=== PATIENT | male | born 1950 | race Caucasian/White ===

== ENCOUNTER 2020-08-15 06:51 | Outpatient (CLI) | payer MEDICARE, SELFPAY ==
--- NOTE | 2020-08-15 07:01 | MR_ITS ---
WS: [id number] MRI LUMBAR SPINE NONCONTRAST HISTORY: CHRONIC RIGHT-SIDED LOW BACK PAIN COMPARISON: None available. TECHNIQUE: Sagittal and axial multisequence imaging is submitted. Study of the lumbar spine is incomplete. Patient was unable to complete the examination due to pain. Straightening of the normal cervical lordosis. Disc osteophyte contact and central stenosis is at ok st moderate at C3-4 and C5-6. Mild RIGHT convex curvature thoracic spine. Focal LEFT convex curvature lumbar spine centered at L3. Moderate disc space narrowing and desiccatio n throughout the lumbar spine. No evidence for an acute fracture on this limited evaluation. Conus terminates normally at L1-2 disc level. L1-L2: Mild annular disc bulging with moderate ligamentum flavum hypertrophy. Mild bilateral foramina l stenosis. L2-L3: Asymmetric disc bulging to the RIGHT. RIGHT foraminal moderate-sized disc protrusion. Disc pro trusion extends into the RIGHT inferior lateral recess. There is at least moderate RIGHT foraminal an d RIGHT subarticular and inferolateral recess stenosis. Mild stenosis on the LEFT. L3-L4: Mild annular disc bulging. Moderate to severe bilateral facet arthritis. Moderate to severe bi lateral subarticular recess and foraminal stenosis. No central stenosis. L4-L5: Mild annular disc bulging and osteophytic ridging. Disc and osteophyte resulting in mild to mo derate bilateral foraminal stenosis. L5-S1: Small disc no significant stenosis. MR/MR lumbar spine wo con* [id number] IMPRESSION: 1. Limited evaluation of the lumbar spine. Significant motion artifact. Patien t was unable to complete the entire examination due to pain. 2. 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 3. There is at least mild to moderate bilateral foraminal stenosis at L4-5 due to disc osteophyte disease. 4. Moderate-sized RIGHT foraminal and inferior lateral recess disc protrusion at L2-3 encroaching into the foramen, inferior lateral recess and subarticular recess.
== END 2020-08-15 06:52 | disposition home or self-care (01) ==
LOC: RADSHAW 06:55
PROVIDERS: PCP Family Medicine; Visit Provider Physician Assistant
DX: M54.5 Low back pain (principal); G89.29 Other chronic pain
CPT/HCPCS: 72148

== ENCOUNTER → 2020-09-06 09:39 | Outpatient (BNVA) | payer MEDICARE, SELFPAY | PROVIDERS: PCP Family Medicine; Referring Provider Physician Assistant; Visit Provider Anesthesiology Pain Medicine | DX: M51.16 Intervertebral disc disorders with radiculopathy, lumbar region (principal); M47.816 Spondylosis without myelopathy or radiculopathy, lumbar region; M48.061 Spinal stenosis, lumbar region without neurogenic claudication; M54.9 Dorsalgia, unspecified; F17.210 Nicotine dependence, cigarettes, uncomplicated; Z79.899 Other long term (current) drug therapy | CPT/HCPCS: 99205 ==

== ENCOUNTER → 2020-11-01 10:13 | Outpatient (BNVA) | payer MEDICARE, SELFPAY | PROVIDERS: PCP Family Medicine; Visit Provider Anesthesiology Pain Medicine | DX: M51.16 Intervertebral disc disorders with radiculopathy, lumbar region (principal); M47.816 Spondylosis without myelopathy or radiculopathy, lumbar region; M48.061 Spinal stenosis, lumbar region without neurogenic claudication; M79.651 Pain in right thigh; M54.9 Dorsalgia, unspecified; F17.210 Nicotine dependence, cigarettes, uncomplicated | CPT/HCPCS: 99213 ==

== ENCOUNTER 2022-02-02 00:55 | Observation (INO) | payer MEDICARE, SELFPAY ==
[2022-02-02] VITALS (8 sets, daily range): BP systolic 119–176; BP diastolic 63–78; PULSE 70–86; RESP 18–20; TEMP 36.6–37.5; O2SAT 89–98; BMI 33.0; BMI 32.9
--- NOTE | 2022-02-02 01:56 | ED_ITS ---
Documented by User: [email or web address] Macedo 02/02/22 03:10 HPI - Abdominal Pain General: Chief Complaint: Abdominal Pain Stated Complaint: ABD pain Time Seen by Provider: 02/02/22 01:41 History of Present Illness: Patient is a 71-year-old male comes to the ED with abdominal pain. Symptoms started couple hours prior to arrival. Abdominal pain is located in the epigastric region. Patient says he ate some steak earlier tonight and a couple hours later is when he started feeling the symptoms. Epigastric pain gets worse if he lays flat. Months of sharp pain that he rates a 7 out of 10. He endorses having some nausea and had an episode of emesis tonight as well. When he has had flareups of acid reflux like this in the past, patient says he usually is able to drink a little bit of Sprite and belch and then he feels better. He tried that tonight and it did not help. Patient does take Prilosec daily for acid reflux. He says this is the worst case of acid reflux he has had before. Denies any fever, chills, chest pain, shortness of breath, bladder or bowel symptoms. Associated Symptoms: Reports nausea and vomiting; Denies chills, constipation, diarrhea, dysuria, fever(s), hematochezia and hematuria Review of Systems Const: Denies: fever(s), chills or fatigue Eyes: Denies: change in vision or eye discomfort ENMT: Denies: throat pain, odynophagia, nasal discharge or nasal congestion Card: Denies: chest pain, palpitations, edema, swelling of feet/ankles, dyspnea on exertion or orthopnea Resp: Denies: dyspnea, productive cough or non-productive cough GI: Reports: abdominal pain, nausea and vomiting; Denies: diarrhea, constipation or hematochezia : Denies: flank pain, difficulty urinating, dysuria or hematuria Musc: Denies: neck pain, back pain or extremity swelling Skin/Breast: Denies: rash or new lesions Neuro: Denies: headache(s), numbness in extremities or weakness in extremities [facility] PFSH: Surgical History No pertinent past surgical history Family History Mother Cancer COLON CANCER Denies family history of Anesthesia complication Bleeding disorder Social History Smoking and tobacco status: current every day smoker cigarettes Alcohol intake: current Alcohol intake frequency: holidays/special occasions only Caregiver/support person: Yes Lives independently: Yes History of recent travel: No Physical Exam Const: COMMON NORMALS: patient oriented x3 and alert GENERAL APPEARANCE: cooperative HENMT: COMMON NORMALS: normocephalic HEAD & SCALP: normocephalic MOUTH: Normal oral and palatal mucosa present THROAT: posterior oropharynx normal and uvula midline Eye: COMMON NORMALS: Equal, round and reactive pupils present PUPIL: Yes Equal, round and reactive pupils present Neck/C-Spine: COMMON NORMALS: supple GENERAL: Yes normal visual inspection Resp: COMMON NORMALS: normal respiratory effort, No retractions, No use of accessory muscles and clear to auscultation bilaterally AUSCULTATION: clear to auscultation bilaterally Cardio: COMMON NORMALS: regular rate, regular rhythm, S1 normal heart sound present, S2 normal heart sound present, No gallops present (Cardio), No clicks present (Cardio), No murmurs present (Cardio) and Peripheral pulses 2+ throughout RATE: regular rate RHYTHM: regular rhythm HEART SOUNDS: S1 normal heart sound present and S2 normal heart sound present PERIPHERAL PULSES: Peripheral pulses 2+ throughout GI: COMMON NORMALS: Normal to inspection, nondistended, normoactive bowel sounds present, Soft to palpation and no masses PALPATION: Yes Soft to palpation and Yes Tenderness to palpation present (GI) Details: other (Epigastric region) : COMMON NORMALS: Yes no CVA tenderness BLADDER/KIDNEY EXAM: Yes no CVA tenderness Back/Pelvis: COMMON NORMALS: no CVA tenderness Extremity: COMMON NORMALS: normal to inspection Neuro: COMMON NORMALS: patient oriented x3 SENSORIUM/ORIENTATION: Yes alert GAIT: Yes Normal gait present Skin: GENERAL SKIN EXAM: dry skin Course Vital Signs: Vital signs: Vital Signs Temperature 98.6 F 02/02/22 01:11 Pulse Rate 72 02/02/22 01:11 Respiratory Rate 18 02/02/22 01:11 Blood Pressure 176/78 02/02/22 01:11 Pulse Oximetry 95 02/02/22 01:11 MDM - Abdominal Pain Medical Decision Making Patient is a 71-year-old male comes to the ED with abdominal pain. Abdominal pain is in the epigastric region and he has some nausea and episode of emesis tonight. Pain occurred a couple hours after eating he says it gets worse if he lays flat. I performed the initial history, physical exam lab work-up and imaging of patient. At the end of my shift I signed patient out to you Dr. Austin. I told him that we are waiting on CT of abdomen and 2-hour troponin. Lab Data I reviewed the patient's lab results. : 02/02/22 02:19 02/02/22 02:19 Labs/Radiology: Radiology Impressions Abdomen/Pelvis CT 02/02/22 01:58 IMPRESSION: 1. Hyperdensities present within the gallbladder lumen and trace pericholecystic fluid versus gallbladder wall edema, findings that could represent mild gallstone cholecystitis. 2. Nonobstructing 7 x 11 mm calculus in the upper pole of the right kidney. 3. Hazy and linear opacities in the left posterior costophrenic recess likely represents atelectasis although a left basilar infiltrate and pneumonia cannot be entirely excluded. Minimal strandy opacities are present in the right posterior hemithorax likely representing atelectasis as well. Laboratory Results WBC 16.2 10^3/uL (4.0-10.0) H 02/02/22 02:19 RBC 5.56 10^6/uL (4.1-5.3) H 02/02/22 02:19 Hgb 17.6 g/dL (11.7-16.6) H 02/02/22 02:19 Hct 50.2 % (42.0-52.0) 02/02/22 02:19 MCV 90.3 fl (80-94) 02/02/22 02:19 MCH 31.7 pg (28.0-34.0) 02/02/22 02:19 MCHC 35.1 g/dL (30.0-36.0) 02/02/22 02:19 RDW 13.0 % (12.1-15.1) 02/02/22 02:19 Plt Count 256 10^3/cmm (130-400) 02/02/22 02:19 MPV 9.1 fL (7.4-10.4) 02/02/22 02:19 Neut % (Auto) 88.7 % 02/02/22 02:19 Lymph % (Auto) 6.4 % 02/02/22 02:19 [place] % (Auto) 3.7 % 02/02/22 02:19 Eos % (Auto) 0.3 % 02/02/22 02:19 Baso % (Auto) 0.5 % 02/02/22 02:19 Neut # (Auto) 14.34 10^3/uL (1.8-7.7) H 02/02/22 02:19 Lymph # (Auto) 1.0 10^3/uL (0.8-4.8) 02/02/22 02:19 [place] # (Auto) 0.6 10^3/uL (0.2-0.9) 02/02/22 02:19 Eos # (Auto) 0.1 10^3/uL (0.0-0.8) 02/02/22 02:19 Baso # (Auto) 0.1 10^3/uL (0.0-0.1) 02/02/22 02:19 Nucleated RBC % (auto) 0 % 02/02/22 02:19 Nucleated RBCs # 0.0 /100WBC 02/02/22 02:19 Sodium 137 mmol/L (136-145) 02/02/22 02:19 Potassium 3.7 mmol/L (3.5-5.1) 02/02/22 02:19 Chloride 97 mmol/L (98-107) L 02/02/22 02:19 Carbon Dioxide 24 mmol/L (22-29) 02/02/22 02:19 Anion Gap 19.7 (5-19) H 02/02/22 02:19 BUN 25 mg/dL (8-23) H 02/02/22 02:19 Creatinine 1.1 mg/dL (0.7-1.2) 02/02/22 02:19 GFR Calculation Not Reportable 02/02/22 02:19 Glucose 139 mg/dL (65-115) H 02/02/22 02:19 Calculated Osmolality 291 mOsm/kg (285-295) 02/02/22 02:19 Calcium 9.2 mg/dL (8.5-10.5) 02/02/22 02:19 Total Bilirubin 0.5 mg/dL (0.15-1.2) 02/02/22 02:19 AST 16 U/L (0-40) 02/02/22 02:19 ALT 18 U/L (0-41) 02/02/22 02:19 Alkaline Phosphatase 78 IU/L (40-130) 02/02/22 02:19 Troponin T Baseline 28 ng/L (0-15) H 02/02/22 02:19 Total Protein 7.5 g/dL (6.6-8.7) 02/02/22 02:19 Albumin 4.6 g/dL (3.5-5.2) 02/02/22 02:19 Globulin 2.9 g/dL (1.3-4.6) 02/02/22 02:19 Lipase 40 U/L (13-60) 02/02/22 02:19 Discharge Plan Discharge Patient Disposition: Admitted As Inpatient Clinical Impression: Acute cholecystitis Condition: Fair Coding Level of Care Code 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 Fwd Exam Comprehensive Documented by User: Pj Austin DO 02/02/22 04:15 HPI - Abdominal Pain General: Chief Complaint: Abdominal Pain Stated Complaint: ABD pain Time Seen by Provider: 02/02/22 01:41 PFS ED PFSH: Surgical History No pertinent past surgical history Family History Mother Cancer COLON CANCER Denies family history of Anesthesia complication Bleeding disorder Social History Smoking and tobacco status: current every day smoker cigarettes Alcohol intake: current Alcohol intake frequency: holidays/special occasions only Caregiver/support person: Yes Lives independently: Yes History of recent travel: No Course Consultations: Consultation #1: duane Time: 04:03 Consultation #2: giurgius Time: 04:13 Vital Signs: Vital signs: Vital Signs Temperature 98.6 F 02/02/22 01:11 Pulse Rate 72 02/02/22 01:11 Respiratory Rate 18 02/02/22 01:11 Blood Pressure 176/78 02/02/22 01:11 Pulse Oximetry 95 02/02/22 01:11 MDM - Abdominal Pain Medical Decision Making Patient is a 71-year-old male comes to the ED with abdominal pain. Abdominal pain is in the epigastric region and he has some nausea and episode of emesis tonight. Pain occurred a couple hours after eating he says it gets worse if he lays flat. I performed the initial history, physical exam lab work-up and imaging of patient. At the end of my shift I signed patient out to you Dr. Austin. I told him that we are waiting on CT of abdomen and 2-hour troponin. 71-year-old gentleman checked out to me by Mr. Silvino PA-C. I agree with his history, evaluation, and treatment. This patient has abdominal pain, white blood cell count of 16.2. By CT he has gallbladder wall edema/pericholecystic fluid. His pain has been hard to control. No ductal dilatation. Liver enzymes are normal. He will be admitted for acute cholecystitis. Surgery has been consulted from the ER. The patient has gotten [facility] Lab Data : 02/02/22 02:19 02/02/22 02:19 Labs/Radiology: Radiology Impressions Abdomen/Pelvis CT 02/02/22 01:58 IMPRESSION: 1. Hyperdensities present within the gallbladder lumen and trace pericholecystic fluid versus gallbladder wall edema, findings that could represent mild gallstone cholecystitis. 2. Nonobstructing 7 x 11 mm calculus in the upper pole of the right kidney. 3. Hazy and linear opacities in the left posterior costophrenic recess likely represents atelectasis although a left basilar infiltrate and pneumonia cannot be entirely excluded. Minimal strandy opacities are present in the right posterior hemithorax likely representing atelectasis as well. Laboratory Results WBC 16.2 10^3/uL (4.0-10.0) H 02/02/22 02:19 RBC 5.56 10^6/uL (4.1-5.3) H 02/02/22 02:19 Hgb 17.6 g/dL (11.7-16.6) H 02/02/22 02:19 Hct 50.2 % (42.0-52.0) 02/02/22 02:19 MCV 90.3 fl (80-94) 02/02/22 02:19 MCH 31.7 pg (28.0-34.0) 02/02/22 02:19 MCHC 35.1 g/dL (30.0-36.0) 02/02/22 02:19 RDW 13.0 % (12.1-15.1) 02/02/22 02:19 Plt Count 256 10^3/cmm (130-400) 02/02/22 02:19 MPV 9.1 fL (7.4-10.4) 02/02/22 02:19 Neut % (Auto) 88.7 % 02/02/22 02:19 Lymph % (Auto) 6.4 % 02/02/22 02:19 [place] % (Auto) 3.7 % 02/02/22 02:19 Eos % (Auto) 0.3 % 02/02/22 02:19 Baso % (Auto) 0.5 % 02/02/22 02:19 Neut # (Auto) 14.34 10^3/uL (1.8-7.7) H 02/02/22 02:19 Lymph # (Auto) 1.0 10^3/uL (0.8-4.8) 02/02/22 02:19 [place] # (Auto) 0.6 10^3/uL (0.2-0.9) 02/02/22 02:19 Eos # (Auto) 0.1 10^3/uL (0.0-0.8) 02/02/22 02:19 Baso # (Auto) 0.1 10^3/uL (0.0-0.1) 02/02/22 02:19 Nucleated RBC % (auto) 0 % 02/02/22 02:19 Nucleated RBCs # 0.0 /100WBC 02/02/22 02:19 Sodium 137 mmol/L (136-145) 02/02/22 02:19 Potassium 3.7 mmol/L (3.5-5.1) 02/02/22 02:19 Chloride 97 mmol/L (98-107) L 02/02/22 02:19 Carbon Dioxide 24 mmol/L (22-29) 02/02/22 02:19 Anion Gap 19.7 (5-19) H 02/02/22 02:19 BUN 25 mg/dL (8-23) H 02/02/22 02:19 Creatinine 1.1 mg/dL (0.7-1.2) 02/02/22 02:19 GFR Calculation Not Reportable 02/02/22 02:19 Glucose 139 mg/dL (65-115) H 02/02/22 02:19 Calculated Osmolality 291 mOsm/kg (285-295) 02/02/22 02:19 Calcium 9.2 mg/dL (8.5-10.5) 02/02/22 02:19 Total Bilirubin 0.5 mg/dL (0.15-1.2) 02/02/22 02:19 AST 16 U/L (0-40) 02/02/22 02:19 ALT 18 U/L (0-41) 02/02/22 02:19 Alkaline Phosphatase 78 IU/L (40-130) 02/02/22 02:19 Troponin T Baseline 28 ng/L (0-15) H 02/02/22 02:19 Total Protein 7.5 g/dL (6.6-8.7) 02/02/22 02:19 Albumin 4.6 g/dL (3.5-5.2) 02/02/22 02:19 Globulin 2.9 g/dL (1.3-4.6) 02/02/22 02:19 Lipase 40 U/L (13-60) 02/02/22 02:19 Discharge Plan Discharge Patient Disposition: Admitted As Inpatient Clinical Impression: Acute cholecystitis Condition: Fair Coding Level of Care Code ED Sawmill Relief Worker for Eliang Fwd Exam Comprehensive
--- NOTE | 2022-02-02 01:58 | CTR_ITS ---
PROCEDURE INFORMATION: Exam: CT Abdomen And Pelvis With Contrast Exam date and time: 02/02/2022 1:58 AM Age: 71 years old Clinical indication: Nausea and vomiting; Abdominal pain; Prior surgery; Surgery type: Thr; Patient HX: Epigastric pain with n/v. TECHNIQUE: Imaging protocol: Computed tomography of the abdomen and pelvis with contrast. Radiation optimization: All CT scans at this facility use at least one of these dose optimization techniques: automated exposure control; mA and/or kV adjustment per patient size (includes targeted exams where dose is matched to clinical indication); or iterative reconstruction. Contrast material: OMNI 300; Contrast volume: 95 ml; Contrast route: INTRAVENOUS (IV); COMPARISON: MR lumbar spine wo con* [id number] 08/15/2020 7:11 AM RADIATION DOSE METRICS: Total DLP (mGy-cm): 1817.38 FINDINGS: Pleural spaces: There are hazy and linear opacities present in the posterior costophrenic recess on the left likely representing atelectasis. A left basilar infiltrate and pneumonia cannot be entirely excluded. Minimal strandy opacities are seen in the posterior right hemithorax likely representing atelectasis as well. Liver: Normal. No mass. Gallbladder and bile ducts: Numerous hyperdensities are seen in the gallbladder lumen compatible with multiple gallstones. Low-attenuation material is seen adjacent to the gallbladder wall compatible with some minimal pericholecystic fluid versus gallbladder wall edema. Mild gallstone cholecystitis cannot be entirely excluded as result. Pancreas: Normal. No ductal dilation. Spleen: Normal. No splenomegaly. Adrenal glands: Normal. No mass. Kidneys and ureters: A prominent 7 x 11 mm nonobstructing calculus seen in the upper pole of the right kidney. Stomach and bowel: Unremarkable. No obstruction. No mucosal thickening. Appendix: No evidence of appendicitis. Intraperitoneal space: Unremarkable. No free air. No significant fluid collection. Vasculature: Calcifications are seen within the thoracic and abdominal aorta, iliac arteries and femoral arteries bilaterally and within branches of the celiac and superior mesenteric arteries and renal arteries. Lymph nodes: Unremarkable. No enlarged lymph nodes. Urinary bladder: Unremarkable as visualized. Reproductive: Unremarkable as visualized. Bones/joints: Status post bipolar right hip replacement. There is a diffuse loss of disc height seen within the thoracolumbar spine with vacuum disc phenomenon present L4-S1 compatible with degenerative disc disease. Soft tissues: Unremarkable. CT/CT abdomen pelvis w con* [id number] IMPRESSION: 1. Hyperdensities present within the gallbladder lumen and trace pericholecystic fluid versus gallbladder wall edema, findings that could represent mild gallstone cholecystitis. 2. Nonobstructing 7 x 11 mm calculus in the upper pole of the right kidney. 3. Hazy and linear opacities in the left posterior costophrenic recess likely represents atelectasis although a left basilar infiltrate and pneumonia cannot be entirely excluded. Minimal strandy opacities are present in the right posterior hemithorax likely representing atelectasis as well.
[2022-02-02 02:24] LABS: Basophils # 0.1 10^3/uL (0.0-0.1); Basophils % 0.5 %; Eosinophils # 0.1 10^3/uL (0.0-0.8); Eosinophils % 0.3 %; Hematocrit 50.2 % (42.0-52.0); Hemoglobin 17.6 g/dL (11.7-16.6); Lymphocytes % 6.4 %; Mean Corpuscular HGB Conc 35.1 g/dL (30.0-36.0); Mean Corpuscular Hemoglobin 31.7 pg (28.0-34.0); Mean Corpuscular Volume 90.3 fl (80-94); Mean Platelet Volume 9.1 fL (7.4-10.4); Monocytes # 0.6 10^3/uL (0.2-0.9); Monocytes % 3.7 %; Neutrophils # 14.34 10^3/uL (1.8-7.7); Neutrophils % 88.7 %; Nucleated Red Blood Cells % 0 %; Platelet Count 256 10^3/cmm (130-400); Red Blood Count 5.56 10^6/uL (4.1-5.3); White Blood Count 16.2 10^3/uL (4.0-10.0)
[2022-02-02 02:40] LABS: Troponin(5th) Baseline 28 ng/L (0-15)
[2022-02-02 02:41] LABS: Alanine Aminotransferase 18 U/L (0-41); Albumin Level 4.6 g/dL (3.5-5.2); Alkaline Phosphatase 78 IU/L (40-130); Anion Gap 19.7 (5-19); Aspartate Amino Transferase 16 U/L (0-40); Blood Urea Nitrogen 25 mg/dL (8-23); Calcium 9.2 mg/dL (8.5-10.5); Carbon Dioxide 24 mmol/L (22-29); Chloride 97 mmol/L (98-107); Globulin 2.9 g/dL (1.3-4.6); Glucose 139 mg/dL (65-115); Lipase 40 U/L (13-60); Osmolality Calculated 291 mOsm/kg (285-295); Potassium 3.7 mmol/L (3.5-5.1); Sodium 137 mmol/L (136-145); Total Bilirubin 0.5 mg/dL (0.15-1.2); Total Protein 7.5 g/dL (6.6-8.7)
[2022-02-02] MEDS: ondansetron 2 mg/ML SDV 2 mL 4 MG IVP (02:55)
[2022-02-02] MEDS: sodium chloride 0.9% 500 ML 999 ML IV (02:55)
[2022-02-02] MEDS: morphine 4 mg/mL SDV 1 mL IVP (02:55)
[2022-02-02] MEDS: iohexol 300 mg/mL 100 mL Btl IV (02:57)
--- NOTE | 2022-02-02 03:42 | ECG_ITS ---
[facility] Test Date: 2022-02-02 Pat Name: Byron Hector Department: Room: Gender: Male Manager Photography: : 1950 Requested By: Maicol Dubois Order Number: [id number] Laura MD: Lyndsay Huynh M.D. Measurements Intervals [place] Rate: 73 P: 71 MA: 194 QRS: 269 QRSD: 156 T: 61 QT: 441 QTc: 487 Interpretive Statements SINUS RHYTHM RIGHT AXIS DEVIATION [QRS AXIS > 100] RIGHT BUNDLE BRANCH BLOCK [120+ ms QRS DURATION, UPRIGHT V1, 40+ ms S IN I/aVL/V4/V5/V6] POSSIBLE SEPTAL MYOCARDIAL INFARCTION , OF INDETERMINATE AGE [30 ms Q WAVE IN V1/V2] No previous ECG available for comparison Electronically Signed On 02-02-2022 8:40:59 MASONRY CONTRACTOR ADMINISTRATOR by Lyndsay Huynh M.D. [email or web address]
[2022-02-02] MEDS: HYDROmorphone 1 mg/mL INJ 1 mL IVP (04:29)
[2022-02-02] MEDS: piperacillin-tazobactam 3.375 GM in sodium chloride 0.9% (plus) 50 ML IV ×4 (04:29→23:18)
--- NOTE | 2022-02-02 04:48 | PM.HP ---
Providers/Chief Complaint Primary Care Provider: Patrice Huang MD Chief Complaint: ABD pain History of Present Illness The patient is a 71-year-old male who presented to [facility] of subxiphoid abdominal pain. He states that start approximate 10 PM on February 01, 2021 2 he was watching TV. He states it was of on sudden onset without radiation. He is unable to describe the quality of the pain. As worst is rated 7 out of 10 currently is 5 out of 10. He did not take any medication for pain at home. He denies frequent NSAID use he denies diarrhea, melena, hematochezia. He states that he had an episode of nausea and emesis he denies fevers or rigors. He indicates that he was unable to take by mouth and thus cannot state whether this improved or worsen the pain. He present for further evaluation Review of Systems General: Reports: 10 or more systems reviewed and unremarkable except in HPI and below Medications/Allergies Home Medications Medication Instructions Recorded Confirmed Last Taken Type ascorbic acid (vitamin C) 500 mg mg PO 09/06/20 11/01/20 Unknown History capsule atorvastatin 20 mg tablet 20 mg PO DAILY 09/06/20 11/01/20 Unknown History cholecalciferol (vitamin D3) 25 25 mcg PO DAILY 09/06/20 11/01/20 Unknown History mcg (1,000 unit) capsule cyanocobalamin (vitamin B-12) 1,000 mcg PO DAILY 09/06/20 11/01/20 Unknown History 1,000 mcg tablet,extended release gabapentin 300 mg capsule 300 mg PO TID #90 cap 09/06/20 11/01/20 Unknown Rx krill 500 mg-omega-3 110 mg-dha 28 cap PO 09/06/20 11/01/20 Unknown History mg-epa 60 [id number] capsule lisinopril 20 1 tab PO DAILY 09/06/20 11/01/20 Unknown History mg-hydrochlorothiazide 25 mg tablet multivitamin 1 tab PO DAILY 09/06/20 11/01/20 Unknown History omeprazole 20 mg capsule,delayed 20 mg PO DAILY 09/06/20 11/01/20 Unknown History release potassium chloride 20 mEq/15 mL 20 meq PO DAILY 09/06/20 11/01/20 Unknown History oral liquid vitamin B complex (B 1 tab PO DAILY 10/07/20 12/02/20 Unknown History Complex-Vitamin B12) tizanidine 4 mg tablet 4 mg PO BID PRN #60 tab 11/01/20 11/01/20 Unknown Rx Allergies Allergy/AdvReac Type Severity Reaction Status Date / Time vancomycin AdvReac BP DROPPED Verified 11/01/20 10:26 PFSH Acute PFSH: Surgical History (Updated 02/02/22 @ 04:53 by Kimberlyn Anton DO) Hx of foot surgery PLATE IN RT HEEL 2003 Hx of hand surgery CARPAL TUNNEL RIGHT HAND No pertinent past surgical history Family History Mother Cancer COLON CANCER Denies family history of Anesthesia complication Bleeding disorder Social History Smoking and tobacco status: current every day smoker cigarettes Alcohol intake: current Alcohol intake frequency: holidays/special occasions only Caregiver/support person: Yes Lives independently: Yes History of recent travel: No Vitals/I&O/Wt Last Vital Signs Temp 98.6 F 02/02/22 01:11 Pulse 70 02/02/22 04:43 Resp 18 02/02/22 04:43 BP 157/68 02/02/22 04:43 Pulse Ox 98 02/02/22 04:43 Weight last 48 hrs Weight 104.326 kg Physical Exam Const: COMMON NORMALS: no acute distress, average body habitus, patient oriented x3, no limitations, healthy appearing, alert and well nourished HENMT: COMMON NORMALS: normocephalic, atraumatic, hearing grossly normal bilaterally, external ears normal, EAC's normal, TM's normal bilaterally, Normal external nose present, Normal nasal mucous membranes and turbinates present, moist oral mucous membranes, oropharynx normal, dentition normal and gingiva normal FACE & SINUS: normal facial exam NOSE: Normal external nose present EXTERNAL EAR: Yes external ears normal Eye: COMMON NORMALS: Equal, round and reactive pupils present, EOMs intact bilaterally, conjunctivae normal, no scleral icterus, no papilledema, normal visual valerio by confrontation and fundi normal bilaterally GENERAL EYE: appearance normal, both eyes and all related structures ALIGNMENT: Yes alignment normal EYELID: eyelids normal CONJUNCTIVA: Yes conjunctivae normal SCLERA: sclerae normal Neck/C-Spine: COMMON NORMALS: full ROM, no lymphadenopathy, supple, no meningeal signs, no JVD, Thyroid normal and No carotid bruits GENERAL: Yes normal visual inspection THYROID: Thyroid normal Lymph: LYMPHATIC: no lymphadenopathy noted Chest: COMMONS NORMALS: normal inspection of the chest, normal palpation of entire chest wall, normal inspection of the breasts and normal palpation of the breasts Resp: COMMON NORMALS: normal respiratory effort, No retractions, No use of accessory muscles, clear to auscultation bilaterally and percussion normal AUSCULTATION: clear to auscultation bilaterally Cardio: COMMON NORMALS: no JVD, regular rate, regular rhythm, S1 normal heart sound present, S2 normal heart sound present, No gallops present (Cardio), No clicks present (Cardio), No murmurs present (Cardio), No rub (Cardio) and Peripheral pulses 2+ throughout JUGULAR VENOUS DISTENTION: no JVD PALPATION: normal PMI RHYTHM: regular rhythm HEART SOUNDS: S1 normal heart sound present GI: COMMON NORMALS: Normal to inspection, nondistended, normoactive bowel sounds present, Soft to palpation, non-tender, No hepatosplenomegaly present, no masses and no bruits INSPECTION: Yes normal to inspection AUSCULTATION: Yes normoactive bowel sounds PALPATION: Yes Soft to palpation : COMMON NORMALS: Yes no CVA tenderness, Yes normal external exam, Yes Testes normal, Yes scrotum normal, Yes no scrotal swelling and Yes No hernias present Back/Pelvis: COMMON NORMALS: no CVA tenderness, thoracic and lumbar spine normal to inspection, no thoracic nor lumbar tenderness, thoraco-lumbar ROM normal and straight leg raise negative bilaterally THORACIC SPINE/UPPER BACK: Yes normal to inspection LUMBAR SPINE/LOWER BACK: Yes normal to inspection Extremity: COMMON NORMALS: normal to inspection, full ROM, capillary refill normal, no joint enlargement, no clubbing, cyanosis or edema, no calf tenderness and no pedal edema GENERAL: Yes normal exam except as noted Neuro: COMMON NORMALS: patient oriented x3 SENSORIUM/ORIENTATION: Yes alert CRANIAL NERVES: Yes CN normal except as noted SPEECH: speech normal DEEP TENDON REFLEXES: Right triceps reflex intensity grade: 2+, Left triceps reflex intensity grade: 2+, Rt Biceps (C5, C6): 2+, Left biceps reflex intensity grade: 2+, Right brachioradialis reflex intensity grade: 2+, Left brachioradialis reflex intensity grade: 2+, Right patellar reflex intensity grade: 2+, Left patellar reflex intensity grade: 2+, Right ankle reflex intensity grade: 2+ and Left ankle reflex intensity grade: 2+ PUPIL EXAM: Normal pupillary reactivity/response: bilateral, Dilated: bilateral, Pinpoint: bilateral, Mid position: bilateral, Sluggish: bilateral and Fixed/non-reactive: bilateral Psych: COMMON NORMALS: mental status grossly normal, Normal thought process present, cooperative, normal affect, speech normal, activity/motor behavior normal, denies hallucinations, denies homicidal ideation and denies suicidal ideation Skin: GENERAL SKIN EXAM: no rashes or lesions noted Data : 02/02/22 02:19 02/02/22 02:19 A&P Assessment and plan (1) Acute cholecystitis: Status: Acute Plan Cholecystitis. Nothing by mouth. Right upper quadrant also pending. Urine analgesia. Zosyn 3.375 g IV every 6 hours plus IV normal saline at 75 ML's per hour. Emergency department physician has notified me that the surgical service has been notified Erythrocytosis. Likely sequelae of history of smoking. Will monitor her hemoglobin intermittently. IV normal saline 75 ML's per hour History of nephrolithiasis Muscle spasm Query pneumonia. Zosyn 3.375 g IV every 6 hours Elevated troponin. Patient denies symptoms of ACS. Will monitor patient on telemetry and checks her cardiac enzymes. Recheck EKG on the morning of February 03, 2022 Arthritis Spinal stenosis Neuropathy GERD Hyperlipidemia Hypertension Obesity. The patient becomes regarding lifestyle modification Smoker. The patient becomes regarding smoking cessation DVT Proflex is. Bilateral SCD Attestations Medical Necessity Statement*: The patient's hospitalization is medically necessary as witnessed by performance of this H&P. 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
[2022-02-02 05:03] LABS: Troponin 5 2HR 26.63 ng/L (0-15)
[2022-02-02 05:21] LABS: Troponin 5 2HR Delta -1.37 ABS# (0-10)
[2022-02-02 05:32] LABS: Add Urine Microscopic? YES; Bilirubin Urine Neg (Negative); Blood Urine Neg (Negative); Glucose Urine UA Norm (Normal); Ketones Urine Negative (Negative); Leukocyte Esterase Urine Negative (Negative); Nitrate Urine Negative (Negative); Protein Urine Trace (Negative); Specific Gravity, Urine 1.005 (1.005-1.030); Urine Appearance Clear (CLEAR); Urine Color Yellow (Yellow); Urobilinogen Urine Norm (Negative); pH Urine 7 (5-7)
[2022-02-02 05:42] LABS: Lipase 33 U/L (13-60)
[2022-02-02 05:47] LABS: INR 1.02 (0.8-1.2); Partial Thromboplastin Time 38.8 SECONDS (23.9-36.7)
[2022-02-02 05:53] LABS: RBC Urine 0-4 /hpf (0-2)
[2022-02-02 05:54] LABS: Add Urine Culture? No; Bacteria Urine TRACE /hpf; Mucus Urine TRACE /hpf; Squamous Epithelial Cell Urine 0-4 /hpf (0-5); WBC Urine 0-4 /hpf (0-5)
--- NOTE | 2022-02-02 05:55 | USR_ITS ---
PROCEDURE INFORMATION: Exam: US Abdomen, Limited; Right Upper Quadrant Exam date and time: 02/02/2022 5:55 AM Age: 71 years old Clinical indication: Abnormal findings; Abnormal radiologic finding of the abdomen; Radiologic exam and body structure: CT gallbladder; Additional info: Ruq pain, acute cholecystitis TECHNIQUE: Imaging protocol: US abdomen. Real time ultrasound with image documentation. Limited exam focused on the right upper quadrant. COMPARISON: CT abdomen pelvis w con* [id number] 02/02/2022 2:57 AM FINDINGS: Liver: The liver appears borderline/mildly prominent, with right lobe length of about 19 cm. No definite/significant focal hepatic abnormality. Gallbladder: There are several shadowing gallstones within the gallbladder. The largest measures up to 24 mm. Moderate gallbladder wall thickening, measuring up to 4.1 mm. No definite pericholecystic fluid. The gallbladder does not appear abnormally distended at this time. Common bile duct: No biliary dilation, common duct measures 3.1 mm. Pancreas: Visible pancreas unremarkable. Right kidney: Images of the right kidney show no hydronephrosis. Apparent calculus in the upper pole of the right kidney. US/US gall bladder [id number] IMPRESSION: 1. Cholelithiasis, see additional details above. 2. No biliary tree dilation. 3. Other findings discussed above.
[2022-02-02] MEDS: sodium chloride 0.9% 1,000 ML 75 ML IV ×2 (06:09→18:10)
--- NOTE | 2022-02-02 06:38 | P.CONIM_ITS ---
Providers/Reason For Consult Consulting Physician/Specialty*: Mateus Guaman MD Reason for Consult*: Calculus cholecystitis Requesting Physician: Dr.Jeremy Austin Attending Physician: Kimberlyn Anton DO Primary Care Provider: Patrice Huang MD History of Present Illness History of Present Illness Chief Complaint: My tummy hurts History of present illness: Byron Hector is a pleasant 71 year old male presents to the ER with worsening epigastric pain that started yesterday late evening with a sudden onset without being radiating. That followed heavy meal of burger and patient started have nausea and vomiting. He had similar episodes in the past but in the very mild form and usually when he drinks Sprite per his description it goes away. Pain mostly was sharp nothing seems to make it better or worse. No other associated symptoms. 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 Further work-up in the ER demonstrated the blood work showing WBC count of 16.2, hemoglobin 17.6, platelet count 256, INR of 1.02, sodium 137, potassium 3.7, creatinine 1.1, total bilirubin 0.5, AST 16, ALT 18 and alkaline phosphatase 78. Patient had some elevated troponin levels as there was a thought that he is h aving chest pain does not seem that from medical standpoint of view that show any concern. General surgery was consulted after a CT scan of the abdomen pelvis was done that showed; 1. Hyperdensities present within the gallbladder lumen and trace pericholecystic fluid versus gallbladder wall edema, findings that could represent mild gallstone cholecystitis. 2. Nonobstructing 7 x 11 mm calculus in the upper pole of the right kidney. 3. Hazy and linear opacities in the left posterior costophrenic recess likely represents atelectasis although a left basilar infiltrate and pneumonia cannot be entirely excluded. Minimal strandy opacities are present in the right posterior hemithorax likely representing atelectasis as well. Patient was seen and evaluated and I recommended an ultrasound dedicated for the liver and gallbladder. Review of Systems General: Reports: 10 or more systems reviewed and unremarkable except in HPI and below Medications/Allergies Home Medications Medication Instructions Recorded Confirmed Last Taken Type ascorbic acid (vitamin C) 500 mg 500 mg PO DAILY 09/06/20 02/02/22 01/31/22 History capsule atorvastatin 20 mg tablet 20 mg PO DAILY 09/06/20 02/02/22 01/31/22 History cholecalciferol (vitamin D3) 25 25 mcg PO DAILY 09/06/20 02/02/22 01/31/22 History mcg (1,000 unit) capsule cyanocobalamin (vitamin B-12) 1,000 mcg PO DAILY 09/06/20 02/02/22 01/31/22 History 1,000 mcg tablet,extended release krill 500 mg-omega-3 110 mg-dha 28 1 cap PO BID 09/06/20 02/02/22 01/31/22 History mg-epa 60 [id number] capsule lisinopril 20 1 tab PO DAILY 09/06/20 02/02/22 01/31/22 History mg-hydrochlorothiazide 25 mg tablet multivitamin 1 tab PO DAILY 09/06/20 02/02/22 01/31/22 History omeprazole 20 mg capsule,delayed 20 mg PO DAILY 09/06/20 02/02/22 01/31/22 History release potassium chloride 20 mEq/15 mL 20 meq PO DAILY 09/06/20 02/02/22 01/31/22 History oral liquid vitamin B complex (B 1 tab PO DAILY 09/06/20 02/02/22 01/31/22 History Complex-Vitamin B12) allopurinol 300 mg tablet 300 mg PO DAILY 02/02/22 02/02/22 01/31/22 History Allergies Allergy/AdvReac Type Severity Reaction Status Date / Time vancomycin AdvReac BP DROPPED Verified 02/02/22 09:25 Current Medications Generic Name Dose Route Start Last Admin Trade Name Freq PRN Reason Stop Dose Admin Sodium Chloride 1,000 mls @ 75 mls/hr 02/02/22 04:45 02/02/22 06:09 Sodium Chloride 0.9% IV 75 mls/hr .[id number] INDIRA Administration Piperacillin Sod/Tazobactam 50 mls @ 100 mls/hr 02/02/22 04:45 02/02/22 05:58 Sod 3.375 gm/ Sodium Chloride IV Infused Q6H INDIRA Infusion Protocol PFSH Acute PFSH: Surgical History Hx of foot surgery PLATE IN RT HEEL 2003 Hx of hand surgery CARPAL TUNNEL RIGHT HAND No pertinent past surgical history Family History Mother Cancer COLON CANCER Denies family history of Anesthesia complication Bleeding disorder Social History Smoking and tobacco status: current every day smoker cigarettes Alcohol intake: current Alcohol intake frequency: holidays/special occasions only Caregiver/support person: Yes Lives independently: Yes History of recent travel: No Vitals/I&O/Wt Last Vital Signs Temp 98.3 F 02/02/22 06:04 Pulse 86 02/02/22 06:04 Resp 18 02/02/22 06:04 BP 133/65 02/02/22 06:04 Pulse Ox 90 02/02/22 06:04 02/01/22 02/01/22 02/02/22 14:59 22:59 06:59 Intake Total 600 / 600 Balance 600 / 600 Weight last 48 hrs Weight 230 lb Physical Exam Const: COMMON NORMALS: no acute distress and patient oriented x3 GENERAL APPEARANCE: cooperative ORIENTATION/CONSCIOUSNESS: Yes awake, Yes oriented to person, Yes oriented to place and Yes oriented to time HENMT: COMMON NORMALS: normocephalic HEAD & SCALP: normocephalic Eye: COMMON NORMALS: Equal, round and reactive pupils present and no scleral icterus PUPIL: Yes Equal, round and reactive pupils present Lymph: LYMPHATIC: no lymphadenopathy noted Chest: COMMONS NORMALS: normal inspection of the chest Resp: COMMON NORMALS: normal respiratory effort and clear to auscultation bilaterally AUSCULTATION: clear to auscultation bilaterally Cardio: COMMON NORMALS: S1 normal heart sound present and S2 normal heart sound present; negative for No murmurs present (Cardio) HEART SOUNDS: S1 normal heart sound present and S2 normal heart sound present GI: COMMON NORMALS: Soft to palpation; negative for No hepatosplenomegaly present INSPECTION: Yes normal to inspection PALPATION: Yes Soft to palpation, No Firmness to palpation present (GI), Yes Tenderness to palpation present (GI) Details: RUQ (On deep palpation), No Guarding due to palpation present (GI), No Rigid due to palpation and No No hepatosplenomegaly present Neuro: COMMON NORMALS: patient oriented x3 SENSORIUM/ORIENTATION: Yes oriented to person, Yes oriented to place and Yes oriented to time Psych: COMMON NORMALS: mental status grossly normal Skin: COMMON NORMALS: no rashes or lesions noted GENERAL SKIN EXAM: no rashes or lesions noted Data : 02/02/22 02:19 02/02/22 02:19 A&P Assessment and plan (1) Acute cholecystitis: Plan of care; After thorough history physical examination and reviewing the chart and images with my personal intrepreatation.I counseled the patient for laparoscopic cholecystectomy possible open, indications risks including but not limited injury to the common bile duct and/or other viscera,that may require potential future surgical interventions including but not limited to ERCP and or laparatomy that may include Hepatobiliary surgery.Benefits and alternatives all discussed with the patient. All questions have been answered and all concerns have been addressed to patient's satisfaction. Rationale was carefully and clearly discussed with the patient. Pending ultrasound pending ultrasound final read, also I did explain for the patient that his options is to proceed with surgery or conservative measures and perform an elective surgery down the road. Patient would like to think about it and he will let me know. Meanwhile n.p.o. and broad-spectrum IV antibiotics 11:00 Ultrasound was done and showed the following; Liver: The liver appears borderline/mildly prominent, with right lobe length of about 19 cm. ?No definite/significant focal hepatic abnormality. Gallbladder: There are several shadowing gallstones within the gallbladder.? The largest measures up to 24 mm. ?Moderate gallbladder wall thickening, measuring up to 4.1 mm. ?No definite pericholecystic fluid. ?The gallbladder does not appear abnormally distended at this time. Common bile duct: No biliary dilation, common duct measures 3.1 mm. Pancreas: Visible pancreas unremarkable. Right kidney: Images of the right kidney show no hydronephrosis. Apparent calculus in the upper pole of the right kidney. After further discussing the case with the anesthesia and the hospitalist service, as the patient was noticed to have some changes of his troponin levels and had history of stress test, patient will undergo an echocardiogram today and will observe him clinically for the coming 24 hours with the plan to perform laparoscopic cholecystectomy tomorrow. Patient also understands the potential option for conservative management now and perform an interval cholecystectomy in 6 weeks. But overall he prefers to get it done at the same hospitalization. We will start the patient on clear liquid diet and keep him n.p.o. 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
--- NOTE | 2022-02-02 07:42 | ECG_ITS ---
[facility] Test Date: 2022-02-02 Pat Name: Byron Hector Department: Room: 278 Gender: Male Base Draw Operator: : 1950 Requested By: Maicol Dubois Order Number: [id number] Sanchez MD: Lyndsay Huynh M.D. Measurements Intervals [place] Rate: 70 P: 66 NM: 191 QRS: 268 QRSD: 145 T: 39 QT: 423 QTc: 457 Interpretive Statements SINUS RHYTHM RIGHT AXIS DEVIATION [QRS AXIS > 100] RIGHT BUNDLE BRANCH BLOCK [120+ ms QRS DURATION, UPRIGHT V1, 40+ ms S IN I/aVL/V4/V5/V6] Compared to ECG 02/02/2022 02:32:30 Myocardial infarct finding no longer present Electronically Signed On 02-02-2022 8:53:52 EYEGLASS CUTTER by Lyndsay Huynh M.D. [id number]
[2022-02-02 08:28] LABS: Troponin 5 6HR 26.16 ng/L (0-15)
[2022-02-02 08:32] LABS: Troponin 5 6HR Delta -1.84 ng/L (0-12)
--- NOTE | 2022-02-02 11:35 | USCV_ITS ---
Byron Hector Age: 71 Gender: M : 1950 Exam Date: 02/02/2022 14:02 Ordering Phys: Phani Ramos MD Technologist: Ricardo Whitman [place] [facility] [place]: [place]ST [place]IN BP: 148 / 66 HR: 80 Rhythm: Sinus Technical Quality: Adequate MEASUREMENTS (Male / Female) Normal Values 2D ECHO LV Diastolic Diameter PLAX 3.7 cm 4.2 - 5.9 / 3.9 - 5.3 cm LV Systolic Diameter PLAX 2.5 cm IVS Diastolic Thickness 1.6 cm 0.6 - 1.0 / 0.6 - 0.9 cm IVS Systolic Thickness 1.7 cm LVPW Diastolic Thickness 1.1 cm 0.6 - 1.0 / 0.6 - 0.9 cm LVPW Systolic Thickness 1.3 cm LVOT Diameter 2.0 cm LV Ejection Fraction 2D Teich 62.3 % LV Ejection Fraction MOD 2C 54.7 % LV Ejection Fraction 2C AL 53.3 % LA Diameter 3.6 cm LA Width 3.4 cm LA Height 4.7 cm RA Width 3.7 cm RA Height 5.3 cm Aorta at Sinotubular Diameter 3.6 cm M-MODE Aortic Annulus Diameter 2.3 cm LA Ao Ratio MM 1.5 MV E Point Septal Separation 0.5 cm DOPPLER AV Peak Velocity 160.0 cm/s LVOT Peak Velocity 103.0 cm/s AV Area Cont Eq vti 2.4 cm squared AV Area Cont Eq pk 2.0 cm squared MV Area PHT 3.5 cm squared Mitral E to A Ratio 0.8 MV E' Velocity 38.5 cm/s Mitral E to MV E' Ratio 5.2 Mitral E to LV E' Lateral Ratio 4.2 Mitral E to LV E' Septal Ratio 6.6 TR Peak Velocity 276.4 cm/s TR Peak Gradient 30.6 mmHg TR Mean Velocity 215.9 cm/s TR Mean Gradient 21.3 mmHg TR Velocity Time Integral 76.0 cm Right Atrial Pressure 3.0 mmHg Pulmonary Artery Systolic Pressu 33.6 mmHg RV Acceleration Time 0.1 s RV Ejection Time 0.3 s RV AcT/ET 0.3 FINDINGS Left Ventricle Normal left ventricular cavity size and mildly increased left ventricular wall thickness. Normal left ventricular systolic function. Left ventricular ejection fraction is estimated at 65 %. No regional wall motion abnormalities. Normal diastolic function. Right Ventricle Normal right ventricular size and systolic function. Right ventricular systolic pressure 33.6 mmHg. Right Atrium Normal right atrial size. Left Atrium Normal left atrial size. Mitral Valve Structurally normal mitral valve. No mitral valve stenosis. No mitral valve regurgitation. Aortic Valve Aortic valve not well visualized. Probably mild thickened and calcified aortic valve. No aortic valve stenosis. No aortic valve regurgitation. Tricuspid Valve Structurally normal tricuspid valve. Trace tricuspid valve regurgitation. Pulmonic Valve Structurally normal pulmonic valve. No pulmonary valve stenosis. Trace pulmonary valve regurgitation. Pericardium No pericardial effusion. Aorta Normal-sized aortic root. Mildly dilated ascending aorta measured at 43 mm. Normal-sized inferior vena cava. CONCLUSIONS 1. Normal left ventricular cavity size and systolic function. Mildly increased left ventricular wall thickness. Left ventricular ejection fraction is estimated at 65 %. No regional wall motion abnormalities. Normal diastolic function. 2. Normal right ventricular size and systolic function. 3. Normal pulmonary artery pressure. 4. Mildly dilated ascending aorta measured at 43 mm. 5. No prior similar studies to compare. Lyndsay Huynh MD (Electronically Signed) Final Date: 03 February 2022 14:59 S
--- NOTE | 2022-02-02 19:12 | PM.PN ---
Subjective Subjective: Pain in epigastrium radiating to right upper quadrant. Denies shortness of breath, chest pain. Vitals/I&O/Wt Last Vital Signs Temp 98.6 F 02/02/22 15:52 Pulse 82 02/02/22 15:52 Resp 18 02/02/22 15:52 BP 119/67 02/02/22 15:52 Pulse Ox 90 02/02/22 15:52 02/02/22 02/02/22 02/02/22 06:59 14:59 22:59 Intake Total 600 / 600 901.25 / 901.25 Output Total 325 / 325 Balance 600 / 600 576.25 / 576.25 Weight last 48 hrs Weight 104.043 kg Weight 104.326 kg Physical Exam Const: COMMON NORMALS: no acute distress and patient oriented x3 HENMT: COMMON NORMALS: oropharynx normal Neck/C-Spine: COMMON NORMALS: no JVD Resp: COMMON NORMALS: normal respiratory effort and clear to auscultation bilaterally AUSCULTATION: clear to auscultation bilaterally Cardio: COMMON NORMALS: no JVD, regular rhythm, S1 normal heart sound present, S2 normal heart sound present and No murmurs present (Cardio) RHYTHM: regular rhythm HEART SOUNDS: S1 normal heart sound present and S2 normal heart sound present GI: COMMON NORMALS: Normal to inspection, nondistended, normoactive bowel sounds present and Soft to palpation PALPATION: Yes Soft to palpation and Yes Tenderness to palpation present (GI) Details: RUQ and other (Epigastrium) Extremity: COMMON NORMALS: no joint enlargement and no pedal edema Neuro: COMMON NORMALS: patient oriented x3 and moves all extremities Skin: COMMON NORMALS: no rashes or lesions noted GENERAL SKIN EXAM: no rashes or lesions noted Data : 02/02/22 02:19 02/02/22 02:19 A&P Assessment and plan (1) Acute cholecystitis: Persistent right upper quadrant and epigastric tenderness. Gallbladder ultrasound with cholelithiasis, moderate gallbladder wall thickening, up to 4.1 mm. No biliary tree dilation. Reports some ibuprofen use, although reports took it once several days ago. Takes PPI at home, will resume. Otherwise with persistent positive Espitia. Suspected acute cholecystitis. He has been discussing with surgery regarding options for management. Noted mild abnormality in high-sensitivity troponin, with flat trend, 28-26.63-26.16. He has had no chest pain or pressure. There is no sign of acute [place] on EKG. He has had no exertional limitation. 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 He would subsequently benefit from nonacute stress test. Has had 1 in the past, but reports it was many years ago. Continue Zosyn. Status: Acute Plan Erythrocytosis. Likely sequelae of history of smoking. Will monitor her hemoglobin intermittently. IV normal saline 75 ML's per hour Pneumonia is listed as a problem on admission, but I do not see a chest x-ray. He has mild hypoxia, oxygen saturation 90, currently 89%. Stop IV fluids. Obtain chest x-ray. History of nephrolithiasis Muscle spasm Elevated troponin. As above. Suspected demand ischemia secondary to acute infection. He is chest pain-free. Troponin trend not suggestive of acute [place]. Assessing TTE, but otherwise would benefit from nonemergent stress test after acute illness. Arthritis Spinal stenosis Neuropathy GERD Hyperlipidemia Hypertension Obesity. The patient becomes regarding lifestyle modification Smoker. The patient becomes regarding smoking cessation DVT Proflex is. Bilateral SCD Attestations Medical Necessity Statement*: Continue admission versus management of acute cholecystitis. Coding Level of Care Code Acute Certified Addiction Counselor for [facility] Jain Diagnoses Acute cholecystitis K81.0
--- NOTE | 2022-02-02 19:21 | XRR_ITS ---
PROCEDURE INFORMATION: Exam: XR Chest Exam date and time: 02/02/2022 7:21 PM Age: 71 years old Clinical indication: Dyspnea; Additional info: Hypoxia TECHNIQUE: Imaging protocol: XR of the chest. Views: 1 view. COMPARISON: CT abdomen pelvis w con* [id number] 02/02/2022 2:57 AM FINDINGS: Lungs: Unremarkable. No consolidation. Pleural spaces: Unremarkable. No pleural effusion. No pneumothorax. Heart/Mediastinum: Unremarkable. No cardiomegaly. Bones/joints: No acute findings. XR/XR chest 1V portable [id number] IMPRESSION: No acute findings.
[2022-02-03] VITALS (27 sets, daily range): BP systolic 120–163; BP diastolic 60–95; PULSE 65–94; RESP 15–22; TEMP 36.4–38.2; O2SAT 87–98
[2022-02-03 04:52] LABS: Basophils # 0.1 10^3/uL (0.0-0.1); Basophils % 0.4 %; Eosinophils # 0.1 10^3/uL (0.0-0.8); Eosinophils % 0.7 %; Hematocrit 46.6 % (42.0-52.0); Hemoglobin 15.9 g/dL (11.7-16.6); Lymphocytes # 1.1 10^3/uL (0.8-4.8); Lymphocytes % 6.4 %; Mean Corpuscular HGB Conc 34.1 g/dL (30.0-36.0); Mean Corpuscular Hemoglobin 31.1 pg (28.0-34.0); Monocytes # 1.2 10^3/uL (0.2-0.9); Neutrophils # 14.13 10^3/uL (1.8-7.7); Nucleated Red Blood Cells % 0 %; Platelet Count 211 10^3/cmm (130-400); Red Blood Count 5.12 10^6/uL (4.1-5.3); Red Cell Distribution Width 13.1 % (12.1-15.1); White Blood Count 16.6 10^3/uL (4.0-10.0)
[2022-02-03 05:02] LABS: Alanine Aminotransferase 18 U/L (0-41); Albumin Level 3.7 g/dL (3.5-5.2); Alkaline Phosphatase 69 IU/L (40-130); Aspartate Amino Transferase 27 U/L (0-40); Blood Urea Nitrogen 18 mg/dL (8-23); Calcium 8.2 mg/dL (8.5-10.5); Carbon Dioxide 23 mmol/L (22-29); Chloride 100 mmol/L (98-107); Globulin 2.5 g/dL (1.3-4.6); Glucose 126 mg/dL (65-115); Osmolality Calculated 285 mOsm/kg (285-295); Sodium 136 mmol/L (136-145); Total Bilirubin 1.2 mg/dL (0.15-1.2); Total Protein 6.2 g/dL (6.6-8.7)
[2022-02-03 05:40] LABS: Anion Gap 16.7 (5-19); Potassium 3.7 mmol/L (3.5-5.1)
--- NOTE | 2022-02-03 06:00 | ECG_ITS ---
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 Measurements Intervals [place] Rate: 89 P: 64 GA: 181 QRS: 266 QRSD: 152 T: 32 QT: 396 QTc: 482 Interpretive Statements SINUS RHYTHM WITH FREQUENT VENTRICULAR PREMATURE COMPLEXES RIGHT AXIS DEVIATION [QRS AXIS > 100] RIGHT BUNDLE BRANCH BLOCK [120+ ms QRS DURATION, UPRIGHT V1, 40+ ms S IN I/aVL/V4/V5/V6] Compared to ECG 02/02/2022 08:45:26 Ventricular premature complex(es) now present Electronically Signed On 02-03-2022 12:15:03 CORPORATE COMMUNICATIONS INTERN by Lyndsay Huynh M.D. [id number]
[2022-02-03] MEDS: sodium chloride 0.9% 1,000 ML 30 ML IV (06:13)
[2022-02-03 06:42] LABS: Glucose Point of Care 120 mg/dL (70-110)
--- NOTE | 2022-02-03 07:16 | PM.PN ---
Subjective Subjective: Patient overall feels about the same, patient is appropriate from medical standpoint of view to proceed with surgery. Medications: Reviewed: Yes Vitals/I&O/Wt Last Vital Signs Temp 100.4 F H 02/03/22 04:00 Pulse 77 02/03/22 05:51 Resp 18 02/03/22 04:00 BP 130/65 02/03/22 04:00 Pulse Ox 88 L 02/03/22 04:00 02/02/22 02/03/22 02/03/22 22:59 06:59 14:59 Intake Total 1191.25 / 1191.25 50 / 1241.25 Output Total 325 / 325 475 / 800 Balance 866.25 / 866.25 -425 / 441.25 Weight last 48 hrs Weight 229 lb 6 oz Weight 230 lb Physical Exam Narrative: Patient is conscious alert oriented X3 No apparent distress except for right upper quadrant pain BMI 32.9 Head and neck examination PERRLA no masses no cervical lymphadenopathy no jaundice Abdomen tender ruq nondistended soft no organomegaly guarding or rigidity/no signs of peritonitis Left below the knee amputation Data : 02/03/22 04:25 02/03/22 04:25 A&P Assessment and plan (1) Acute cholecystitis: Status: Acute Plan Plan of care; After thorough history physical examination and reviewing the chart and images with my personal intrepreatation.I counseled the patient for laparoscopic cholecystectomy possible open, indications risks including but not limited injury to the common bile duct and/or other viscera,that may require potential future surgical interventions including but not limited to ERCP and or laparatomy that may include Hepatobiliary surgery.Benefits and alternatives all discussed with the patient, and patient did agree to proceed accordingly. All questions have been answered and all concerns have been addressed to patient's satisfaction. Rationale was carefully and clearly discussed with the patient.Appropriate informed consent have been reviewed and signed. 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
--- NOTE | 2022-02-03 08:00 | PC.NURSE ---
Patient left floor for surgery at 0764
[2022-02-03] MEDS: acetaminophen 1,000 MG/100 ML PIGGYBACK 400 MG IV (08:10)
[2022-02-03] MEDS: heparin 5,000 unit/mL INJ 1 mL 2000 UNIT SUBCUT (08:11)
[2022-02-03] MEDS: piperacillin-tazobactam 3.375 GM in sodium chloride 0.9% (plus) 50 ML IV ×3 (08:12→23:45)
--- NOTE | 2022-02-03 08:13 | P.ANESASSM_ITS ---
Pre-Anesthetic Assessment Height/Weight: Height 1.78 m Weight 104.043 kg Temp Pulse Resp BP Pulse Ox 97.5 F L 85 16 160/79 96 02/03/22 07:40 02/03/22 07:40 02/03/22 07:40 02/03/22 07:40 02/03/22 07:40 Preop Diagnosis: Cholecystitis Operation Date: 02/03/22 08:00 Proposed Procedures p Laparoscopic Cholecystectomy(Not Applicable) - Mateus Guaman MD Familial anesthetic complications: None Was Beta Jeffery taken within 24 hours: N/A Was Clonidine taken within 24 hours: N/A Last intake: Intake Last Liquid Date 02/02/22 Last Liquid Time 23:55 Last Solid Date 02/02/22 Last Solid Time 23:55 Social No alcohol and No tobacco Exam alert, oriented x 3, clear to auscultation bilaterally and regular rate & rhythm Airway Submandibular: within normal limits Cervical ROM: within normal limits Mallampati: Class II Dentition: false Comments: Comments: [place] CV/HEM Hypertension Metabolic Hyperlipidemia and Morbid Obesity [facility] [place] gout Anesthetic Plan ASA status: 3 Anesthesia: General Medications/Allergies Home Medications Medication Instructions Recorded Confirmed Last Taken Type ascorbic acid (vitamin C) 500 mg 500 mg PO DAILY 09/06/20 02/02/22 01/31/22 History capsule atorvastatin 20 mg tablet 20 mg PO DAILY 09/06/20 02/02/22 01/31/22 History cholecalciferol (vitamin D3) 25 25 mcg PO DAILY 09/06/20 02/02/22 01/31/22 History mcg (1,000 unit) capsule cyanocobalamin (vitamin B-12) 1,000 mcg PO DAILY 09/06/20 02/02/22 01/31/22 History 1,000 mcg tablet,extended release krill 500 mg-omega-3 110 mg-dha 28 1 cap PO BID 09/06/20 02/02/22 01/31/22 History mg-epa 60 [id number] capsule lisinopril 20 1 tab PO DAILY 09/06/20 02/02/22 01/31/22 History mg-hydrochlorothiazide 25 mg tablet multivitamin 1 tab PO DAILY 09/06/20 02/02/22 01/31/22 History omeprazole 20 mg capsule,delayed 20 mg PO DAILY 09/06/20 02/02/2201/31/22 History release potassium chloride 20 mEq/15 mL 20 meq PO DAILY 09/06/20 02/02/22 01/31/22 History oral liquid vitamin B complex (B 1 tab PO DAILY 09/06/20 02/02/22 01/31/22 History Complex-Vitamin B12) allopurinol 300 mg tablet 300 mg PO DAILY 02/02/22 02/02/22 01/31/22 History Allergies Allergy/AdvReac Type Severity Reaction Status Date / Time vancomycin AdvReac BP DROPPED Verified 02/02/22 09:25 Current Medications Generic Name Dose Route Start Last Admin Trade Name Freq PRN Reason Stop Dose Admin Heparin Sodium (Porcine) 2,000 unit 02/03/22 08:15 02/03/22 08:11 Heparin 5,000 Unit/Ml Inj 1 Ml SUBCUT 02/03/22 08:16 2,000 unit ONCE ONE Administration Piperacillin Sod/Tazobactam 50 mls @ 12.5 mls/hr 02/02/22 16:15 02/03/22 07:53 Sod 3.375 gm/ Sodium Chloride IV Not Given Q8H INDIRA Protocol Sodium Chloride 1,000 mls @ 30 mls/hr 02/03/22 01:45 02/03/22 06:13 Sodium Chloride 0.9% IV 02/04/22 01:44 30 mls/hr .Q24H INDIRA Administration Acetaminophen 1,000 mg in 100 mls @ 400 mls/hr 02/03/22 08:15 02/03/22 08:10 Acetaminophen IV 02/03/22 08:29 400 mls/hr ONCE ONE Administration PFSH Anesthesia Surgical History Hx of foot surgery PLATE IN RT HEEL 2003 Hx of hand surgery CARPAL TUNNEL RIGHT HAND No pertinent past surgical history Family History Mother Cancer COLON CANCER Denies family history of Anesthesia complication Bleeding disorder Social History Smoking and tobacco status: current every day smoker cigarettes Alcohol intake: current Alcohol intake frequency: holidays/special occasions only Caregiver/support person: Yes Lives independently: Yes History of recent travel: No Data Anesthesia : 02/03/22 04:25 02/03/22 04:25 Short CBC 02/02/22 02/03/22 Range/Units 02:19 04:25 WBC 16.2 H 16.6 H (4.0-10.0) 10^3/uL Hgb 17.6 H 15.9 (11.7-16.6) g/dL Hct 50.2 46.6 (42.0-52.0) % MCV 90.3 91.0 (80-94) fl Plt Count 256 211 (130-400) 10^3/cmm Neut % (Auto) 88.7 85.0 % Neut # (Auto) 14.34 H 14.13 H (1.8-7.7) 10^3/uL BMP 02/02/22 02/03/22 02:19 04:25 Sodium 137 136 Potassium 3.7 3.7 Chloride 97 L 100 Carbon Dioxide 24 23 BUN 25 H 18 Creatinine 1.1 0.9 Glucose 139 H 126 H Calcium 9.2 8.2 L Cardiac Enzymes 02/02/22 02/02/22 02/02/22 Range/Units 02:19 04:27 08:00 Troponin T Baseline 28 H (0-15) ng/L Troponin T 120 Minute 26.63 H (0-15) ng/L Delta Troponin T -1.37 L (0-10) ABS# Troponin T Hi Sens 6Hr 26.16 H (0-15) ng/L Troponin T Hi Sens 6Hr Delta -1.84 L (0-12) ng/L Liver Function 02/02/22 02/03/22 Range/Units 02:19 04:25 Total Bilirubin 0.5 1.2 (0.15-1.2) mg/dL AST 16 27 (0-40) U/L ALT 18 18 (0-41) U/L Alkaline Phosphatase 78 69 (40-130) IU/L Albumin 4.6 3.7 (3.5-5.2) g/dL Urine 02/02/22 Range/Units 04:48 Urine Color Yellow (Yellow) Urine Appearance Clear (CLEAR) Urine pH 7 (5-7) Ur Specific Wallace 1.005 (1.005-1.030) Urine Protein Trace (Negative) Urine Glucose (UA) Norm (Normal) Urine Ketones Negative (Negative) Urine Nitrate Negative (Negative) Urine Bilirubin Neg (Negative) Ur Leukocyte Esterase Negative (Negative) Urine RBC 0-4 H (0-2) /hpf Urine WBC 0-4 H (0-5) /hpf Coags 02/02/22 02:19 PT 13.70 INR 1.02 APTT 38.8 H Cardiac Studies: No Data to Display
[2022-02-03] MEDS: lidocaine 2% INJ 20 mL INJECTION (08:51)
--- NOTE | 2022-02-03 10:48 | P.OP_ITS ---
Operative Report Date of procedure: February 03, 2022 Pre-op diagnosis: Preop Diagnosis Cholecystitis Post-op diagnosis: Acute on top of chronic calculus cholecystitis Gangrenous cholecystitis Fatty liver Procedure done: 1-Laparoscopic cholecystectomy 2-Laparoscopic liver biopsy Implants: Surgi-Olayinka and Surgicel at the gallbladder for Specimens removed/disposition: Gallbladder and contents Liver biopsy Surgeon: Mateus Guaman MD Sociology Professor: Surgical john Cuadra and [place] Circulating nurse Naya Vaughn Estimated blood loss (mL): 250 IV fluids: 1000 Procedure: Patient was identified in the holding area and taken back to the operative suite, placed in supine position intubated by anesthesia . Time-out was done verifying the patient's name/date of /planned procedure and destination after the procedure, all were in agreement. SCDs confirmed to be functioning, preoperative antibiotics administered per protocol, and beta linette protocol was confirmed. Patient was appropriately secured to the table, footboard was applied to the OR table, before prep and drape anesthesia was asked to tilt the table back and forth to make sure that the patient is appropriately secured and she was. Prep and drape of the abdomen was done under the usual sterile technique, followed by that supraumbilical skin incision,skin incision was done by a 15 blade knife, and stay sutures were applied to the fascia and Gibson trocar technique was used to enter the abdominal without injuring any abdominal viscera, started by low flow gas insufflation followed by a high flow, started with a 10 mm laparoscope and under direct vision there was no evidence of any injuries, the scope then switched to a 30? ,10 millimeter scope and under direct visualization 5 millimeter trocar was inserted in the epigastric region followed by two 5 mm trocars were inserted in the right upper quadrant that was done after injection of local lidocaine 2% at all incision sites. Gallbladder showed acute on top of chronic cholecystitis with gangrenous patches and enlarged fatty Liver. Patient was then positioned in the head up and tilted to the left. Ratcheted forceps were introduced into the lateral most 5mm port and was applied unto the fundus of the gallbladder cephalad and using Bullet forceps the infundibulum of the gallbladder was retracted laterally. Using [place] forceps then L-hook cautery to dissect the peritoneum overlying the Calot's triangle which was then opened medially and laterally until the cystic duct and the cystic artery were skeletonized. Dissection was carried along the body of the gallbladder and after ensuring critical view of safety was identfied. Cystic duct and cystic artery where seen connected to the gallbladder. Clips were applied on the cystic duct towards the common bile duct 1 towards the gallbladder then divided is in sharp scissors, 2 clips were then applied onto the cystic artery and 1 towards the gallbladder and divided by sharp scissors. Additional traversing vessels were clipped. The cystic duct stump looked to be little bit enlarged so I elected to place an Endoloop Vicryl to secure the stump. Dissection was then carried along of the gallbladder from the gallbladder fossa using cautery as well as sharp dissection with heat energy, noticed that the patient had an intrahepatic gallbladder component. The gallbladder then was dissected out from the gallbladder fossa totally , cholecystectomy was then achieved and was placed in an Endo Catch bag and then retrieved from the Gibson trocar site under direct visualization using a 5 mm 30? scope through the epigastric trocar, specimen was then passed to the circulating nurse to go for permanent pathology,irrigation and hemostasis was done to the gallbladder fossa after hemostasis was secured by using Surgi-Olayinka and Surgicel final survey laparoscopy was done that showed no injuries. Suction irrigation was obtained using 3 L. Note is that the patient's fatty liver with soft component had a higher tendency of bleeding from the gallbladder fossa and it took some time to have appropriate and secured hemostasis. The supraumbilical fascial defect was then closed using interrupted number one PDS sutures using a fascial closure device ;Christian Harrison under direct visualization following that Gas was allowed to deflate,Trocars were then taken out under direct vision there was no evidence of bleeding. Specimen was passed to the circulating nurse for permanent pathology. No drains were placed and the supraumbilical incision as well as all trocar s ites were closed by skin anish to approximate the skin edges of the incisions after irrigation, dressing was applied in the form of surical glue and the patient patient got extubated and was taken to recovery area in a stable condition. Count of sponges,needles and instruments were completed at the end of the procedure I was present for the whole entire procedure.
--- NOTE | 2022-02-03 12:36 | PC.NURSE ---
Patient returned to floor at 1208
--- NOTE | 2022-02-03 15:41 | ANE.PACU2 ---
Inpatient post-anesthesia follow up: Airway intact: Yes Vital signs: Temperature 98.4 F Pulse Rate 70 Respiratory Rate 18 Blood Pressure 130/65 Pulse Oximetry 93 Oxygen Delivery Me thod Nasal Cannula Oxygen Flow Rate 3 Fraction of Inspir ed Oxygen Hydration adequate: Yes Nausea and vomiting: No Pain level: 3 Mental status: Baseline
[2022-02-03] MEDS: HYDROcodone-acetaminophen 5-325 mg Tablet 1 TAB PO ×2 (16:57→20:53)
--- NOTE | 2022-02-03 17:41 | PM.PN ---
Subjective Subjective: He is sore, but otherwise doing all right after surgery. Denies chest pain or pressure no trouble breathing. Asked for a cup of coffee. Medications: Reviewed: Yes Vitals/I&O/Wt Last Vital Signs Temp 98.1 F 02/03/22 15:46 Pulse 72 02/03/22 15:46 Resp 17 02/03/22 15:46 BP 144/79 02/03/22 15:46 Pulse Ox 91 02/03/22 15:46 02/03/22 02/03/22 02/03/22 06:59 14:59 22:59 Intake Total 50 / 1241.25 2350 / 2350 Output Total 475 / 800 250 / 250 Balance -425 / 441.25 2100 / 2100 Weight last 48 hrs Weight 104.043 kg Weight 104.326 kg Physical Exam Const: COMMON NORMALS: no acute distress and patient oriented x3 HENMT: COMMON NORMALS: oropharynx normal Neck/C-Spine: COMMON NORMALS: no JVD Resp: COMMON NORMALS: normal respiratory effort and clear to auscultation bilaterally AUSCULTATION: clear to auscultation bilaterally Cardio: COMMON NORMALS: no JVD, regular rhythm, S1 normal heart sound present, S2 normal heart sound present and No murmurs present (Cardio) RHYTHM: regular rhythm HEART SOUNDS: S1 normal heart sound present and S2 normal heart sound present GI: COMMON NORMALS: Normal to inspection, nondistended, normoactive bowel sounds present and Soft to palpation PALPATION: Yes Soft to palpation and Yes Tenderness to palpation present (GI) Extremity: COMMON NORMALS: no joint enlargement and no pedal edema Neuro: COMMON NORMALS: patient oriented x3 and moves all extremities Skin: COMMON NORMALS: no rashes or lesions noted GENERAL SKIN EXAM: no rashes or lesions noted Data : 02/03/22 04:25 02/03/22 04:25 A&P Assessment and plan (1) Acute cholecystitis: Status post cholecystectomy with gangrenous patches noted on gallbladder. Persistent right upper quadrant and epigastric tenderness. Gallbladder ultrasound with cholelithiasis, moderate gallbladder wall thickening, up to 4.1 mm. No biliary tree dilation. Reports some ibuprofen use, although reports took it once several days ago. Takes PPI at home, resume. Noted mild abnormality in high-sensitivity troponin, with flat trend, 28-26.63-26.16. He has had no chest pain or pressure. There is no sign of acute [place] on EKG. He has had no exertional limitation. TTE obtained and unremarkable. Consider nonacute stress test. Has had 1 in the past, but reports it was many years ago. Continue Zosyn. Status: Acute Plan Erythrocytosis. Likely sequelae of history of smoking. Will monitor her hemoglobin intermittently. IV normal saline 75 ML's per hour Pneumonia is listed as a problem on admission, but I do not see a chest x-ray. He has mild hypoxia, oxygen saturation 90, currently 89%. Stop IV fluids. Obtain chest x-ray. History of nephrolithiasis Muscle spasm Elevated troponin. As above. Suspected demand ischemia secondary to acute infection. He is chest pain-free. Troponin trend not suggestive of acute [place]. Assessing TTE, but otherwise would benefit from nonemergent stress test after acute illness. Arthritis Spinal stenosis Neuropathy GERD Hyperlipidemia Hypertension Obesity. The patient becomes regarding lifestyle modification Smoker. The patient becomes regarding smoking cessation DVT Proflex is. Bilateral SCD Attestations Medical Necessity Statement*: Continue admission for cyst management following cholecystectomy with finding of partially gangrenous cholecystitis. Coding Level of Care Code Acute Women'S Health Care Nurse Practitioner for [facility] Diagnoses Acute cholecystitis K81.0
[2022-02-03] MEDS: ciprofloxacin 500 mg Tablet PO (20:52)
[2022-02-03 21:34] LABS: Glucose Point of Care 160 mg/dL (70-110)
[2022-02-04] VITALS (7 sets, daily range): BP systolic 127–175; BP diastolic 70–84; PULSE 75–97; RESP 18–20; TEMP 36.5–37.4; O2SAT 84–91
[2022-02-04] MEDS: HYDROcodone-acetaminophen 5-325 mg Tablet 1 TAB PO ×2 (02:14→11:13)
[2022-02-04 04:57] LABS: Basophils % 0.2 %; Hematocrit 42.6 % (42.0-52.0); Hemoglobin 14.5 g/dL (11.7-16.6); Lymphocytes # 0.9 10^3/uL (0.8-4.8); Lymphocytes % 4.9 %; Mean Corpuscular Hemoglobin 31.6 pg (28.0-34.0); Mean Corpuscular Volume 92.8 fl (80-94); Mean Platelet Volume 9.1 fL (7.4-10.4); Monocytes # 1.4 10^3/uL (0.2-0.9); Monocytes % 7.8 %; Neutrophils # 15.05 10^3/uL (1.8-7.7); Neutrophils % 86.4 %; Nucleated Red Blood Cells % 0 %; Platelet Count 195 10^3/cmm (130-400); Red Blood Count 4.59 10^6/uL (4.1-5.3); Red Cell Distribution Width 13.2 % (12.1-15.1); White Blood Count 17.4 10^3/uL (4.0-10.0)
[2022-02-04 05:12] LABS: Alanine Aminotransferase 62 U/L (0-41); Albumin Level 3.5 g/dL (3.5-5.2); Alkaline Phosphatase 63 IU/L (40-130); Anion Gap 15.7 (5-19); Aspartate Amino Transferase 56 U/L (0-40); Blood Urea Nitrogen 17 mg/dL (8-23); Calcium 7.7 mg/dL (8.5-10.5); Carbon Dioxide 23 mmol/L (22-29); Chloride 98 mmol/L (98-107); Globulin 2.7 g/dL (1.3-4.6); Glucose 122 mg/dL (65-115); Osmolality Calculated 279 mOsm/kg (285-295); Potassium 3.7 mmol/L (3.5-5.1); Sodium 133 mmol/L (136-145); Total Bilirubin 1.1 mg/dL (0.15-1.2); Total Protein 6.2 g/dL (6.6-8.7)
--- NOTE | 2022-02-04 06:00 | PM.PN ---
Subjective Subjective: Patient overall is feeling better yet sore at the incision sites particularly at the supraumbilical incision. Otherwise tolerating p.o. intake. Trending up of leukocytosis which could be reactive after surgery Medications: Reviewed: Yes Vitals/I&O/Wt Last Vital Signs Temp 98.5 F 02/04/22 04:00 Pulse 75 02/04/22 04:00 Resp 20 H 02/04/22 04:00 BP 127/70 02/04/22 04:00 Pulse Ox 90 02/04/22 04:00 02/03/22 02/03/22 02/04/22 14:59 22:59 06:59 Intake Total 2350 / 2350 300 / 2650 1090 / 3740 Output Total 250 / 250 450 / 700 Balance 2100 / 2100 300 / 2400 640 / 3040 Weight last 48 hrs Weight 232 lb Weight 229 lb 6 oz Physical Exam Narrative: Patient is conscious alert oriented X3 No apparent distress BMI 33.3 Head and neck examination PERRLA no masses no cervical lymphadenopathy no jaundice Abdomen nontender,except mildly at the incision sites,nondistended soft no organomegaly guarding or rigidity/no signs of peritonitis Incisions are clean dry and intact and skin anish in place Old blood clot at the supraumbilical incision that was wiped and cleaned and dry dressing was applied Data : 02/04/22 04:24 02/04/22 04:24 A&P Assessment and plan (1) Acute cholecystitis: Assessment Plan 71 years old gentleman status post laparoscopic cholecystectomy and liver biopsy 02/03/2022 Plan Advance to full liquid diet If patient continues to perform well during the day can be discharged from surgical standpoint of view on oral antibiotics for 5 to 7 days Recommend low-fat diet Educating the patient about the findings of fatty liver Return to surgery office in 10 days Refrain from heavy lifting in the form of not more than 10 pounds first weeks after surgery and not more than 25 pounds 6 to 8 weeks to follow. Assurance and education All questions have been answered and all concerns have been addressed to patient's satisfaction. 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
[2022-02-04 06:19] LABS: Glucose Point of Care 123 mg/dL (70-110)
[2022-02-04] MEDS: piperacillin-tazobactam 3.375 GM in sodium chloride 0.9% (plus) 50 ML IV (08:34)
--- NOTE | 2022-02-04 10:55 | PM.DCS ---
Discharge Providers Date of Admission: 02/02/22 04:40 Date of Discharge: February 04, 2022 Attending Provider at Admission: Kimberlyn Anton DO Attending Provider at Discharge: Cherry Solitario MD Primary Care Provider: Patrice Huang MD Diagnoses at Discharge Discharge Diagnosis (1) Acute cholecystitis: Status: Resolved Reason for Visit Reason for Visit: ABD pain Hospital Course Hospital Course 71-year-old gentleman with acute cholecystitis, seemed to have had some gangrenous patches on the gallbladder after cholecystectomy 02/03. Had mild troponin elevation, although no chest pain, echocardiogram unremarkable. On 02/04 patient was able to pass flatus, he was recently eager to return home, I advanced his diet to GI soft. No fever since removal of gallbladder. He was kept on Zosyn during hospitalization. Opioid, bowel regimen, ciprofloxacin and Flagyl course prescribed at the time of discharge. Culture and pathology results are pending. Physical Exam Narrative: Patient is sitting comfortably in his bed Satting well on 2 L nasal cannula Abdomen soft, distended, no sign of peritonitis Bowel sound present No signs of edema Nonfocal neuro exam Awake and alert Euvolemic Discharge Data Studies Completed and Pending Completed Studies During Hospitalization Category Date Time Status CT abdomen pelvis w con* [id number] Urgent Cat Scan 02/02/22 01:58 Completed CXRP [XR chest 1V portable [id number]] Routine Exams 02/02/22 19:21 Completed CV. echo complete* [id number] Routine Ultrasound 02/02/22 11:35 Completed US gall bladder [id number] Urgent Ultrasound 02/02/22 05:55 Completed Pending at discharge Category Date Time Status ES surgery / GI images Routine Exams 02/03/22 07:40 Taken ES surgery / GI images Routine Exams 02/03/22 07:45 Ordered Complete Blood Count w/Auto AM LABS Lab 02/05/22 04:00 Ordered Complete Blood Count w/Auto AM LABS Lab 02/06/22 04:00 Ordered Comprehensive Metabolic Panel AM LABS Lab 02/05/22 04:00 Ordered Pathology: Surgical [PTH] Routine Pth 02/03/22 10:46 Received Radiology Impressions Abdomen/Pelvis CT 02/02/22 01:58 IMPRESSION: 1. Hyperdensities present within the gallbladder lumen and trace pericholecystic fluid versus gallbladder wall edema, findings that could represent mild gallstone cholecystitis. 2. Nonobstructing 7 x 11 mm calculus in the upper pole of the right kidney. 3. Hazy and linear opacities in the left posterior costophrenic recess likely represents atelectasis although a left basilar infiltrate and pneumonia cannot be entirely excluded. Minimal strandy opacities are present in the right posterior hemithorax likely representing atelectasis as well. Gallbladder Ultrasound 02/02/22 05:55 IMPRESSION: 1. Cholelithiasis, see additional details above. 2. No biliary tree dilation. 3. Other findings discussed above. Chest X-Ray 02/02/22 19:21 IMPRESSION: No acute findings. Laboratory Results WBC 17.4 10^3/uL (4.0-10.0) H 02/04/22 04:24 RBC 4.59 10^6/uL (4.1-5.3) 02/04/22 04:24 Hgb 14.5 g/dL (11.7-16.6) 02/04/22 04:24 Hct 42.6 % (42.0-52.0) 02/04/22 04:24 MCV 92.8 fl (80-94) 02/04/22 04:24 MCH 31.6 pg (28.0-34.0) 02/04/22 04:24 MCHC 34.0 g/dL (30.0-36.0) 02/04/22 04:24 RDW 13.2 % (12.1-15.1) 02/04/22 04:24 Plt Count 195 10^3/cmm (130-400) 02/04/22 04:24 MPV 9.1 fL (7.4-10.4) 02/04/22 04:24 Neut % (Auto) 86.4 % 02/04/22 04:24 Lymph % (Auto) 4.9 % 02/04/22 04:24 [place] % (Auto) 7.8 % 02/04/22 04:24 Eos % (Auto) 0.0 % 02/04/22 04:24 Baso % (Auto) 0.2 % 02/04/22 04:24 Neut # (Auto) 15.05 10^3/uL (1.8-7.7) H 02/04/22 04:24 Lymph # (Auto) 0.9 10^3/uL (0.8-4.8) 02/04/22 04:24 [place] # (Auto) 1.4 10^3/uL (0.2-0.9) H 02/04/22 04:24 Eos # (Auto) 0.0 10^3/uL (0.0-0.8) 02/04/22 04:24 Baso # (Auto) 0.0 10^3/uL (0.0-0.1) 02/04/22 04:24 Nucleated RBC % (auto) 0 % 02/04/22 04:24 Nucleated RBCs # 0.0 /100WBC 02/04/22 04:24 PT 13.70 SECONDS (12.1-14.9) 02/02/22 02:19 INR 1.02 (0.8-1.2) 02/02/22 02:19 APTT 38.8 SECONDS (23.9-36.7) H 02/02/22 02:19 Sodium 133 mmol/L (136-145) L 02/04/22 04:24 Potassium 3.7 mmol/L (3.5-5.1) 02/04/22 04:24 Chloride 98 mmol/L (98-107) 02/04/22 04:24 Carbon Dioxide 23 mmol/L (22-29) 02/04/22 04:24 Anion Gap 15.7 (5-19) 02/04/22 04:24 BUN 17 mg/dL (8-23) 02/04/22 04:24 Creatinine 0.8 mg/dL (0.7-1.2) 02/04/22 04:24 GFR Calculation Not Reportable 02/04/22 04:24 Glucose 122 mg/dL (65-115) H 02/04/22 04:24 POC Glucose 123 mg/dL (70-110) H 02/04/22 06:15 Calculated Osmolality 279 mOsm/kg (285-295) L 02/04/22 04:24 Calcium 7.7 mg/dL (8.5-10.5) L 02/04/22 04:24 Total Bilirubin 1.1 mg/dL (0.15-1.2) 02/04/22 04:24 AST 56 U/L (0-40) H 02/04/22 04:24 ALT 62 U/L (0-41) H 02/04/22 04:24 Alkaline Phosphatase 63 IU/L (40-130) 02/04/22 04:24 Troponin T Baseline 28 ng/L (0-15) H 02/02/22 02:19 Troponin T 120 Minute 26.63 ng/L (0-15) H 02/02/22 04:27 Delta Troponin T -1.37 ABS# (0-10) L 02/02/22 04:27 Troponin T Hi Sens 6Hr 26.16 ng/L (0-15) H 02/02/22 08:00 Troponin T Hi Sens 6Hr Delta -1.84 ng/L (0-12) L 02/02/22 08:00 Total Protein 6.2 g/dL (6.6-8.7) L 02/04/22 04:24 Albumin 3.5 g/dL (3.5-5.2) 02/04/22 04:24 Globulin 2.7 g/dL (1.3-4.6) 02/04/22 04:24 Lipase 33 U/L (13-60) 02/02/22 02:19 Lipase 40 U/L (13-60) 02/02/22 02:19 Urine Color Yellow (Yellow) 02/02/22 04:48 Urine Appearance Clear (CLEAR) 02/02/22 04:48 Urine pH 7 (5-7) 02/02/22 04:48 Ur Specific [place] 1.005 (1.005-1.030) 02/02/22 04:48 Urine Protein Trace (Negative) 02/02/22 04:48 Urine Glucose (UA) Norm (Normal) 02/02/22 04:48 Urine Ketones Negative (Negative) 02/02/22 04:48 Urine Blood Neg (Negative) 02/02/22 04:48 Urine Nitrate Negative (Negative) 02/02/22 04:48 Urine Bilirubin Neg (Negative) 02/02/22 04:48 Urine Urobilinogen Norm mg/dL (Negative) 02/02/22 04:48 Ur Leukocyte Esterase Negative (Negative) 02/02/22 04:48 Urine RBC 0-4 /hpf (0-2) H 02/02/22 04:48 Urine WBC 0-4 /hpf (0-5) H 02/02/22 04:48 Ur Squamous Epith Cells 0-4 /hpf (0-5) H 02/02/22 04:48 Amorphous Sediment Not Reportable 02/02/22 04:48 Urine Bacteria Trace /hpf (NONE) 02/02/22 04:48 Urine Mucus Trace /hpf 02/02/22 04:48 Vitals Last Vital Signs Temp 98.3 F 02/04/22 08:00 Pulse 97 02/04/22 08:00 Resp 18 02/04/22 08:00 BP 175/81 02/04/22 08:00 Pulse Ox 90 02/04/22 08:00 Discharge Plan Discharge Patient Disposition: Home Condition: Stable Prescriptions: New hydrocodone-acetaminophen 5-325 mg tablet 1 tab PO Q6H PRN (Reason: pain) Qty: 28 0RF metronidazole 500 mg tablet 500 mg PO Q8H 7 Days Qty: 21 0RF ciprofloxacin HCl 500 mg tablet 500 mg PO BID Qty: 14 0RF Senna-S 8.6-50 mg tablet 1 tab-cap PO BID PRN (Reason: constipation) Qty: 20 0RF tamsulosin 0.4 mg capsule 0.4 mg PO DAILY Qty: 30 0RF Continued lisinopril-hydrochlorothiazide 20-25 mg tablet 1 tab PO DAILY 0RF omeprazole 20 mg capsule,delayed release(DR/EC) 20 mg PO DAILY 0RF atorvastatin 20 mg tablet 20 mg PO DAILY 0RF vitamin B complex [B Complex-Vitamin B12] Tablet 1 tab PO DAILY 0RF cyanocobalamin (vitamin B-12) 1,000 mcg tablet extended release 1,000 mcg PO DAILY 0RF [id number] mg capsule 1 cap PO BID 0RF cholecalciferol (vitamin D3) 25 mcg (1,000 unit) capsule 25 mcg PO DAILY 0RF multivitamin Tablet 1 tab PO DAILY 0RF potassium chloride 20 mEq/15 mL liquid 20 meq PO DAILY 0RF ascorbic acid (vitamin C) 500 mg capsule 500 mg PO DAILY 0RF allopurinol 300 mg tablet 300 mg PO DAILY 0RF Discharge Orders: Discharge Order (Routine); Ordered 02/04/22 Ordered By: Cherry Solitario Referrals: Mateus Guaman MD [Physician] - 7-10 days (Return to surgery office in 10 days) Patrice Huang MD [Primary Care Provider] - 2 weeks Discharge Activity: Limit activity as instructed Patient Instructions: Opioid Safety Activity Restrictions/Additional Instructions: 1. Patient can shower after 48 hours from surgery 2. Remove Band-Aidsdressing after 48 hours from surgery. 3. Up and walking as tolerated 4. Do not lift more than 5 pounds first 2 weeks after surgery and not more than 25 pounds 6 to 8 weeks after surgery. 5. Do not operate heavy machinery or drive while using pain medications. 6.Contact the office or return to the ER for worsening nausea vomiting fevers or chills, or noticing any redness around incision sites or discharge. 7. Education about fatty liver and emphasis on low-fat diet and weight management 8. Avoid straining or constipation Discharge Attestations Time Spent in Discharge Care*: less than 30 min Quality Metrics Clinical Quality Measures [ No reported AMI, CVA or VTE this stay] Coding Level of Care Code Acute g [facility] note Diagnoses Acute cholecystitis K81.0
[2022-02-04] MEDS: acetaminophen 325 mg Tablet 650 MG PO (11:17)
[2022-02-04 11:37] LABS: Glucose Point of Care 159 mg/dL (70-110)
[2022-02-04 16:33] LABS: SARS Covid-2 Antigen Negative (Negative)
== END 2022-02-04 16:58 | disposition home or self-care (01) ==
LOC: ER 04:22 → MEDSURG 05:37
PROVIDERS: Internal Medicine; Physician Assistant; Surgery; Admitting Provider Internal Medicine; Emergency Provider Emergency Medicine; PCP Family Medicine; Visit Provider Internal Medicine
PROC: 0FT44ZZ Resection of Gallbladder, Percutaneous Endoscopic Approach (ICD-10-PCS; CPT 47562; principal; 2022-02-03 08:00)
DX: K81.2 Acute cholecystitis with chronic cholecystitis (principal); K82.A1 Gangrene of gallbladder in cholecystitis; K76.0 Fatty (change of) liver, not elsewhere classified; F17.210 Nicotine dependence, cigarettes, uncomplicated; Z99.81 Dependence on supplemental oxygen; E78.5 Hyperlipidemia, unspecified; I10 Essential (primary) hypertension; E66.01 Morbid (severe) obesity due to excess calories; Z68.33 Body mass index [BMI] 33.0-33.9, adult; M19.90 Unspecified osteoarthritis, unspecified site; K21.9 Gastro-esophageal reflux disease without esophagitis
CPT/HCPCS: 47379; 47562; 36415; 36416; 71045; 74177; 76705; 80053; 81001; 82962; 83690; 84484; 85025; 85610; 85730; 87426; 88304; 88307; 93005; 93306; 96365; 96366; 96375; 99285; G0378; J1100; J1170; J1644; J2270; J2370; J2405; J2543; J2704; J2710; J3010; J3490; J7030; J7040; Q9967

== ENCOUNTER → 2022-04-11 08:04 | Outpatient (BNVA) | payer MEDICARE, SELFPAY | PROVIDERS: PCP Family Medicine; Visit Provider Family Medicine | DX: Z00.00 Encounter for general adult medical examination without abnormal findings (principal); M10.9 Gout, unspecified; E78.5 Hyperlipidemia, unspecified; I10 Essential (primary) hypertension | CPT/HCPCS: 80053; 80061; 84153; 85025 ==

== ENCOUNTER 2023-01-05 08:14 | Inpatient (IN) | payer MEDICARE, SELFPAY ==
[2023-01-05] VITALS (23 sets, daily range): BP systolic 96–149; BP diastolic 48–78; PULSE 65–78; RESP 15–20; TEMP 36.2–37.1; O2SAT 90–98; BMI 31.8
--- NOTE | 2023-01-05 08:24 | CTR_ITS ---
PROCEDURE INFORMATION: Exam: CT Abdomen And Pelvis With Contrast Exam date and time: 01/05/2023 9:42 AM Age: 72 years old Clinical indication: Abdominal pain; Localized; Upper; Prior surgery; Surgery date: 6+ months; Surgery type: Gb; Additional info: Abd pain TECHNIQUE: Imaging protocol: Computed tomography of the abdomen and pelvis with contrast. Radiation optimization: All CT scans at this facility use at least one of these dose optimization techniques: automated exposure control; mA and/or kV adjustment per patient size (includes targeted exams where dose is matched to clinical indication); or iterative reconstruction. Contrast material: OMNI 350; Contrast volume: 100 ml; Contrast route: INTRAVENOUS (IV); Other protocol: This patient has received [address] and 0 known cardiac nuclear medicine studies in the 12 months prior to the current study. COMPARISON: CT abdomen pelvis w con* [id number] 02/02/2022 2:57 AM RADIATION DOSE METRICS: Total DLP (mGy-cm): 898.73 FINDINGS: Liver: Normal. No mass. Gallbladder and bile ducts: The gallbladder has been surgically removed. Pancreas: Normal. No ductal dilation. Spleen: Normal. No splenomegaly. Adrenal glands: Normal. No mass. Kidneys and ureters: There is nonspecific mild stranding of the perirenal fat bilaterally. Symmetric enhancement of the kidneys. No mass lesion identified. There is a subcentimeter focus of decreased attenuation in the right kidney which is too small to characterize. There is a 1.0 cm nonobstructing stone versus cortical calcification in the right upper kidney. No hydronephrosis. Stomach and bowel: There is diverticulosis without evidence of diverticulitis. Appendix: No evidence of appendicitis. Intraperitoneal space: Unremarkable. No free air. No significant fluid collection. Vasculature: Moderate diffuse atherosclerotic disease is present. Lymph nodes: Unremarkable. No enlarged lymph nodes. Urinary bladder: Unremarkable as visualized. Reproductive: Unremarkable as visualized. Bones/joints: The patient is status post right total hip arthroplasty. There is moderate degenerative changes of the left hip joint. Degenerative changes of the spine seen. Soft tissues: Surgical clips with adjacent soft tissue/scar noted in the right paracolic gutter. Involving the subcutaneous tissues of the umbilical region and extending superiorly along the posterior wall of the rectus abdominus muscle bilaterally, there is a complex multiloculated lesion/rim enhancing fluid collection with thick wall and stranding of the adjacent fat, measuring approximately 12.4 x 9.2 x 2.8 cm. Thickening of the overlying skin is present. CT/CT abdomen pelvis w con* [id number] IMPRESSION: Anterior abdominal wall complex lesion/multiloculated fluid collection, concerning for abscess. Complex mass lesion can have this appearance and should be considered in the adequate clinical setting.
[2023-01-05 08:33] LABS: Basophils # 0.1 10^3/uL (0.0-0.1); Basophils % 0.5 %; Eosinophils # 0.5 10^3/uL (0.0-0.8); Eosinophils % 2.9 %; Hematocrit 43.9 % (42.0-52.0); Lymphocytes # 2.3 10^3/uL (0.8-4.8); Lymphocytes % 13.2 %; Mean Corpuscular HGB Conc 34.2 g/dL (30.0-36.0); Mean Corpuscular Hemoglobin 30.3 pg (28.0-34.0); Mean Corpuscular Volume 88.7 fl (80-94); Mean Platelet Volume 8.3 fL (7.4-10.4); Monocytes # 1.2 10^3/uL (0.2-0.9); Monocytes % 7.2 %; Neutrophils # 13.12 10^3/uL (1.8-7.7); Neutrophils % 75.7 %; Nucleated Red Blood Cells % 0 %; Platelet Count 312 10^3/cmm (130-400); Red Blood Count 4.95 10^6/uL (4.1-5.3); Red Cell Distribution Width 13.2 % (12.1-15.1); White Blood Count 17.3 10^3/uL (4.0-10.0)
--- NOTE | 2023-01-05 08:36 | ED_ITS ---
HPI - Abdominal Pain General: Chief Complaint: Abdominal Pain Stated Complaint: abd bleeding Time Seen by Provider: 01/05/23 08:19 Source: patient Mode of arrival: ambulatory History of Present Illness: 72-year-old male presents to the emergency room with complaints of abdominal bleeding. Patient has an old incision site from a laparoscopic cholecystectomy that has opened up has a serosanguineous drainage is mildly reddened raised firm and indurated and exquisitely tender. He denies any fever sweats or chills. He coughed this morning and it spontaneously opened. He initially had a laparoscopic cholecystectomy in January 2022 postoperatively he seemed to be doing well in the last couple of weeks he was noted to have what was initially thought as a ventral hernia and now developed to this. MD elicited complaint: abdominal pain Pertinent past history: other (Previous laparoscopic cholecystectomy) Onset (ago): week(s) Pain Consistency: constant Location: Periumbilical Severity: mild Quality: cramping Exacerbating factors: nothing Relieving factors: nothing Associated Symptoms: Reports bloating, nausea and vomiting; Denies chills, coffee ground emesis, constipation, diarrhea, dysuria, fever(s), hematochezia, hematemesis and melena Review of Systems Const: Reports: fatigue and malaise; Denies: fever(s), chills, body aches or change in appetite ENMT: Denies: throat pain, ear or mastoid pain, nasal discharge or nasal congestion Card: Denies: chest pain, palpitations, irregular heart rhythm, edema, dyspnea on exertion or orthopnea Resp: Denies: dyspnea, productive cough or non-productive cough GI: Reports: abdominal pain, nausea, vomiting and bloating; Denies: hematemesis, coffee ground emesis, diarrhea, constipation, hematochezia or melena : Denies: flank pain, difficulty urinating, dysuria, urinary frequency or urinary urgency Skin/Breast: Denies: rash or pruritus PFSH ED PFSH: Medical History Gout Hyperlipidemia Hypertension Surgical History Hx of foot surgery PLATE IN RT HEEL 2003 Hx of hand surgery CARPAL TUNNEL RIGHT HAND No pertinent past surgical history Family History Mother Cancer COLON CANCER Denies family history of Anesthesia complication Bleeding disorder Social History Smoking and tobacco status: current every day smoker cigarettes Alcohol intake: current Alcohol intake frequency: holidays/special occasions only Caregiver/support person: Yes Lives independently: Yes History of recent travel: No Physical Exam Const: COMMON NORMALS: no acute distress GENERAL APPEARANCE: cooperative and comfortable ORIENTATION/CONSCIOUSNESS: Yes awake, Yes oriented to person, Yes oriented to place and Yes oriented to time HENMT: COMMON NORMALS: normocephalic, atraumatic and hearing grossly normal bilaterally HEAD & SCALP: normocephalic and atraumatic Resp: COMMON NORMALS: normal respiratory effort, No retractions, No use of accessory muscles and clear to auscultation bilaterally AUSCULTATION: clear to auscultation bilaterally Cardio: COMMON NORMALS: regular rate, regular rhythm and No murmurs present (Cardio) RATE: regular rate RHYTHM: regular rhythm GI: COMMON NORMALS: No hepatosplenomegaly present AUSCULTATION: Yes normoactive bowel sounds PALPATION: Yes Tenderness to palpation present (GI) (Periumbilical), No Guarding due to palpation present (GI) and Yes No hepatosplenomegaly present OTHER: 6 inch x 8 inch indurated area mild serosanguineous drainage with palpation no purulent drainage area is mildly erythematous as well. : COMMON NORMALS: Yes no CVA tenderness BLADDER/KIDNEY EXAM: Yes no CVA tenderness Back/Pelvis: COMMON NORMALS: no CVA tenderness Extremity: COMMON NORMALS: normal to inspection, capillary refill normal, no clubbing, cyanosis or edema, no calf tenderness and no pedal edema Neuro: SENSORIUM/ORIENTATION: Yes oriented to person, Yes oriented to place and Yes oriented to time Skin: COMMON NORMALS: no rashes or lesions noted GENERAL SKIN EXAM: no rashes or lesions noted Course Vital Signs: Vital signs: Vital Signs Temperature 98.7 F 01/05/23 08:21 Pulse Rate 78 01/05/23 08:21 Respiratory Rate 20 H 01/05/23 08:21 Blood Pressure 128/70 01/05/23 10:00 Pulse Oximetry 94 01/05/23 10:00 Oxygen Delivery Me thod 01/05/23 08:21 MDM - Abdominal Pain Medical Decision Making CT shows large abdominal wall abscess with elevated white count abscess measured 12 x 9 x 3 cm. Started spontaneously visualized and drained some. Elevated white count with a left shift cultures done started on Ancef admit to hospitalist consult surgery discussed with both services orders are written Medical Records I reviewed the patient's medical records. Lab Data I reviewed the patient's lab results. 01/05/23 08:25 01/05/23 08:25 Labs/Radiology: Radiology Impressions Abdomen/Pelvis CT 01/05/23 08:24 IMPRESSION: Anterior abdominal wall complex lesion/multiloculated fluid collection, concerning for abscess. Complex mass lesion can have this appearance and should be considered in the adequate clinical setting. Laboratory Results WBC 17.3 10^3/uL (4.0-10.0) H 01/05/23 08:25 RBC 4.95 10^6/uL (4.1-5.3) 01/05/23 08:25 Hgb 15.0 g/dL (11.7-16.6) 01/05/23 08:25 Hct 43.9 % (42.0-52.0) 01/05/23 08:25 MCV 88.7 fl (80-94) 01/05/23 08:25 MCH 30.3 pg (28.0-34.0) 01/05/23 08:25 MCHC 34.2 g/dL (30.0-36.0) 01/05/23 08:25 RDW 13.2 % (12.1-15.1) 01/05/23 08:25 Plt Count 312 10^3/cmm (130-400) 01/05/23 08:25 MPV 8.3 fL (7.4-10.4) 01/05/23 08:25 Neut % (Auto) 75.7 % 01/05/23 08:25 Lymph % (Auto) 13.2 % 01/05/23 08:25 [place] % (Auto) 7.2 % 01/05/23 08:25 Eos % (Auto) 2.9 % 01/05/23 08:25 Baso % (Auto) 0.5 % 01/05/23 08:25 Neut # (Auto) 13.12 10^3/uL (1.8-7.7) H 01/05/23 08:25 Lymph # (Auto) 2.3 10^3/uL (0.8-4.8) 01/05/23 08:25 [place] # (Auto) 1.2 10^3/uL (0.2-0.9) H 01/05/23 08:25 Eos # (Auto) 0.5 10^3/uL (0.0-0.8) 01/05/23 08:25 Baso # (Auto) 0.1 10^3/uL (0.0-0.1) 01/05/23 08:25 Nucleated RBC % (auto) 0 % 01/05/23 08:25 Nucleated RBCs # 0.0 /100WBC 01/05/23 08:25 Sodium 132 mmol/L (136-145) L 01/05/23 08:25 Potassium 3.6 mmol/L (3.5-5.1) 01/05/23 08:25 Chloride 94 mmol/L (98-107) L 01/05/23 08:25 Carbon Dioxide 24 mmol/L (22-29) 01/05/23 08:25 Anion Gap 17.6 (5-19) 01/05/23 08:25 BUN 19 mg/dL (8-23) 01/05/23 08:25 Creatinine 1.0 mg/dL (0.7-1.2) 01/05/23 08:25 GFR Calculation Not Reportable 01/05/23 08:25 Glucose 123 mg/dL (65-115) H 01/05/23 08:25 Calculated Osmolality 278 mOsm/kg (285-295) L 01/05/23 08:25 Calcium 10.1 mg/dL (8.5-10.5) 01/05/23 08:25 Total Bilirubin 0.8 mg/dL (0.15-1.2) 01/05/23 08:25 AST 14 U/L (0-40) 01/05/23 08:25 ALT 11 U/L (0-41) 01/05/23 08:25 Alkaline Phosphatase 89 U/L (40-130) 01/05/23 08:25 Total Protein 7.3 g/dL (6.6-8.7) 01/05/23 08:25 Albumin 3.8 g/dL (3.5-5.2) 01/05/23 08:25 Globulin 3.5 g/dL (1.3-4.6) 01/05/23 08:25 Discharge Plan Discharge Patient Disposition: Admitted As Inpatient Clinical Impression: Abdominal wall abscess at site of surgical wound, Hypertension, Gout Condition: Stable Coding Level of Care Code ED Director Of Food And Bever[employer] Services for [employer]ie[employer] Fwd Exam Comprehensive
[2023-01-05 08:51] LABS: Alanine Aminotransferase 11 U/L (0-41); Albumin Level 3.8 g/dL (3.5-5.2); Alkaline Phosphatase 89 U/L (40-130); Anion Gap 17.6 (5-19); Aspartate Amino Transferase 14 U/L (0-40); Carbon Dioxide 24 mmol/L (22-29); Chloride 94 mmol/L (98-107); Globulin 3.5 g/dL (1.3-4.6); Glucose 123 mg/dL (65-115); Potassium 3.6 mmol/L (3.5-5.1); Sodium 132 mmol/L (136-145); Total Bilirubin 0.8 mg/dL (0.15-1.2); Total Protein 7.3 g/dL (6.6-8.7)
[2023-01-05 09:27] LABS: Blood Urea Nitrogen 19 mg/dL (8-23); Calcium 10.1 mg/dL (8.5-10.5); Osmolality Calculated 278 mOsm/kg (285-295)
[2023-01-05] MEDS: iohexol 350 mg/mL 500 mL Btl (per mL) IV (09:45)
[2023-01-05] MEDS: ceFAZolin 1,000 MG in sodium chloride 0.9% (plus) 50 ML 100 MG IV (10:37)
--- NOTE | 2023-01-05 10:46 | P.HP_ITS ---
Providers/Chief Complaint Primary Care Provider: Patrice Huang MD Chief Complaint: abd bleeding History of Present Illness Byron Hector is a 72 year old male with past medical history of gout, hypertension, laparoscopic cholecystectomy approximately 1 year ago.? Patient developed periumbilical pain over the last several days.? The patient saw his primary care physician who thought that that may be a hernia.? The patient was referred to the general surgeon.? This morning the patient sneezed and then had fluid drained from his abdominal wall.? He presented to the emergency room.? The patient denies fever or chills.? In the emergency room the patient underwent a CT scan of his abdomen pelvis which is suggestive of abdominal wall abscess. Surgery was consulted: Currently they plan to take the patient to the OR for abscess drainage. Currently patient has been started on broad-spectrum antibiotics. Review of Systems General: Reports: 10 or more systems reviewed and unremarkable except in HPI and below Const: Denies: fever(s), chills, body aches, change in appetite or diaphoresis Card: Denies: palpitations, edema, swelling of feet/ankles, dyspnea on exertion, orthopnea or leg pain with exertion Resp: Denies: dyspnea, productive cough, wheezing or pain on inspiration GI: Reports: abdominal pain; Denies: nausea, vomiting, diarrhea or constipation : Denies: flank pain or difficulty urinating Musc: Denies: back pain, extremity pain or extremity swelling Neuro: Denies: headache(s), difficulty walking or confusion Medications/Allergies Home Medications Medication Instructions Recorded Confirmed Last Taken Type ascorbic acid (vitamin C) 500 mg 500 mg PO DAILY 09/06/20 01/05/23 01/04/23 History capsule atorvastatin 20 mg tablet 20 mg PO DAILY 09/06/20 01/05/23 01/04/23 History cholecalciferol (vitamin D3) 25 25 mcg PO DAILY 09/06/20 01/05/23 01/04/23 History mcg (1,000 unit) capsule cyanocobalamin (vitamin B-12) 1,000 mcg PO DAILY 09/06/20 01/05/23 01/04/23 History 1,000 mcg tablet,extended release krill 500 mg-omega-3 110 mg-dha 28 1 cap PO BID 09/06/20 01/05/23 01/31/22 History mg-epa 60 [id number]-wbfkasn-[id number] capsule multivitamin 1 tab PO DAILY 09/06/20 01/05/23 01/04/23 History omeprazole 20 mg capsule,delayed 20 mg PO DAILY 09/06/20 01/05/23 01/04/23 History release potassium chloride 20 mEq/15 mL 20 meq PO DAILY 09/06/20 01/05/23 01/04/23 History oral liquid lisinopril 20 1 tab PO DAILY #90 tabs 07/30/22 01/05/23 01/04/23 Rx mg-hydrochlorothiazide 25 mg tablet allopurinol 300 mg tablet 300 mg PO DAILY #30 tabs 10/10/22 01/05/23 01/04/23 Rx tadalafil 5 mg tablet (Cialis) 5 mg PO DAILY PRN sexual activity 11/29/22 01/05/23 Unknown Rx #20 tabs docusate sodium 100 mg capsule 100 mg PO DAILY PRN Constipation 01/05/23 01/05/23 Unknown History Allergies Allergy/AdvReac Type Severity Reaction Status Date / Time vancomycin AdvReac BP DROPPED Verified 10/10/22 07:44 PFSH Acute PFSH: Medical History Gout Hyperlipidemia Hypertension Surgical History Hx of foot surgery PLATE IN RT HEEL 2003 Hx of hand surgery CARPAL TUNNEL RIGHT HAND No pertinent past surgical history Family History Mother Cancer COLON CANCER Denies family history of Anesthesia complication Bleeding disorder Social History Smoking and tobacco status: current every day smoker cigarettes Alcohol intake: current Alcohol intake frequency: holidays/special occasions only Caregiver/support person: Yes Lives independently: Yes History of recent travel: No Vitals/I&O/Wt Last Vital Signs Temp 98.7 F 01/05/23 08:21 Pulse 78 01/05/23 08:21 Resp 20 H 01/05/23 08:21 BP 128/70 01/05/23 10:00 Pulse Ox 94 01/05/23 10:00 O2 Del Method 01/05/23 08:21 Weight last 48 hrs Weight 100.698 kg Physical Exam Const: COMMON NORMALS: patient oriented x3 HENMT: COMMON NORMALS: normocephalic and atraumatic HEAD & SCALP: normocephalic and atraumatic Resp: COMMON NORMALS: clear to auscultation bilaterally AUSCULTATION: clear to auscultation bilaterally Cardio: COMMON NORMALS: regular rate, regular rhythm, S1 normal heart sound present, S2 normal heart sound present, No gallops present (Cardio), No murmurs present (Cardio), No rub (Cardio) and Peripheral pulses 2+ throughout RATE: regular rate RHYTHM: regular rhythm HEART SOUNDS: S1 normal heart sound present and S2 normal heart sound present PERIPHERAL PULSES: Peripheral pulses 2+ throughout GI: AUSCULTATION: Yes normoactive bowel sounds PALPATION: Yes Soft to palpation and Yes No hepatosplenomegaly present RECTAL EXAM: Yes deferred OTHER: Supraumbilical erythema present with tenderness, warmth, small drainage site with purulent drainage. Extremity: COMMON NORMALS: no clubbing, cyanosis or edema and no pedal edema Neuro: COMMON NORMALS: patient oriented x3 Data 01/05/23 08:25 01/05/23 08:25 Micro: Microbiology 01/05/23 08:57 Blood Culture - Preliminary Blood SPECIMEN COLLECTED 01/05/23 08:53 Blood Culture - Preliminary Blood SPECIMEN COLLECTED A&P Assessment and plan (1) Abdominal wall abscess at site of surgical wound: CT abdomen pelvis w con:Anterior abdominal wall complex lesion/multiloculated fluid collection, concerning for abscess. S/p I&D Follow blood culture Wound culture Currently on [facility] on board (2) Gout: Continue allopurinol (3) Hypertension: Continue lisinopril hydrochlorothiazide Attestations Medical Necessity Statement*: Needs to be in hospital for management of abdominal wall abscess, need for IV antibiotics, anticipated length of stay greater than 2 midnight. Coding Level of Care Code Acute Code for Chg Fwd Exam Detailed Diagnoses Abdominal wall abscess at site of surgical wound T81.49XA Gout M10.9 Hypertension I10
--- NOTE | 2023-01-05 11:12 | PM.CONSULT ---
Providers/Reason For Consult Consulting Physician/Specialty*: Emergency room physician Reason for Consult*: Abdominal wall abscess Attending Physician: Paula Harrison MD Primary Care Provider: Patrice Huang MD History of Present Illness History of Present Illness Byron Hector is a 72 year old male who has a history of laparoscopic cholecystectomy approximately 1 year ago. Patient developed periumbilical pain over the last several days. The patient saw his primary care physician who thought that that may be a hernia. The patient was referred to the general surgeon. This morning the patient sneezed and then had fluid drained from his abdominal wall. He presented to the emergency room. The patient denies fever or chills. In the emergency room the patient underwent a CT scan of his abdomen pelvis. The patient appears to have an abdominal wall abscess. The abscess appears to be in the abdominal wall and not intra-abdominal. Review of Systems General: Reports: 10 or more systems reviewed and unremarkable except in HPI and below Medications/Allergies Home Medications Medication Instructions Recorded Confirmed Last Taken Type ascorbic acid (vitamin C) 500 mg 500 mg PO DAILY 09/06/20 01/05/23 01/04/23 History capsule atorvastatin 20 mg tablet 20 mg PO DAILY 09/06/20 01/05/23 01/04/23 History cholecalciferol (vitamin D3) 25 25 mcg PO DAILY 09/06/20 01/05/23 01/04/23 History mcg (1,000 unit) capsule cyanocobalamin (vitamin B-12) 1,000 mcg PO DAILY 09/06/20 01/05/23 01/04/23 History 1,000 mcg tablet,extended release krill 500 mg-omega-3 110 mg-dha 28 1 cap PO BID 09/06/20 01/05/23 01/31/22 History mg-epa 60 no-cnlxbqg-haxsl capsule multivitamin 1 tab PO DAILY 09/06/20 01/05/23 01/04/23 History omeprazole 20 mg capsule,delayed 20 mg PO DAILY 09/06/20 01/05/23 01/04/23 History release potassium chloride 20 mEq/15 mL 20 meq PO DAILY 09/06/20 01/05/23 01/04/23 History oral liquid lisinopril 20 1 tab PO DAILY #90 tabs 07/30/22 01/05/23 01/04/23 Rx mg-hydrochlorothiazide 25 mg tablet allopurinol 300 mg tablet 300 mg PO DAILY #30 tabs 10/10/22 01/05/23 01/04/23 Rx tadalafil 5 mg tablet (Cialis) 5 mg PO DAILY PRN sexual activity 11/29/22 01/05/23 Unknown Rx #20 tabs docusate sodium 100 mg capsule 100 mg PO DAILY PRN Constipation 01/05/23 01/05/23 Unknown History Allergies Allergy/AdvReac Type Severity Reaction Status Date / Time vancomycin AdvReac BP DROPPED Verified 10/10/22 07:44 PFSH Acute PFSH: Medical History Gout Hyperlipidemia Hypertension Surgical History Hx of foot surgery PLATE IN RT HEEL 2003 Hx of hand surgery CARPAL TUNNEL RIGHT HAND No pertinent past surgical history Family History Mother Cancer COLON CANCER Denies family history of Anesthesia complication Bleeding disorder Social History Smoking and tobacco status: current every day smoker cigarettes Alcohol intake: current Alcohol intake frequency: holidays/special occasions only Caregiver/support person: Yes Lives independently: Yes History of recent travel: No Vitals/I&O/Wt Last Vital Signs Temp 98.7 F 01/05/23 08:21 Pulse 78 01/05/23 08:21 Resp 20 H 01/05/23 08:21 BP 128/70 01/05/23 10:00 Pulse Ox 94 01/05/23 10:00 O2 Del Method 01/05/23 08:21 Weight last 48 hrs Weight 222 lb Physical Exam Narrative: Generally: No acute distress. The patient has obvious drainage on his T-shirt and pants. HEENT is no cephalic atraumatic. Pupils equal round reactive to light. Oral nasal passages are clear. Neck: Treatment or motion and nontender. The patient's trachea is midline. The patient has no thyromegaly Lungs: Clear to auscultation percussion Heart: Regular rate and rhythm without murmurs. There is no S3 or S4. There is no rubs clicks or JVD noted that I can appreciate Abdomen: Soft, the patient has a relatively large area of erythema that is above his umbilicus. This area is tender. This area is warm. In the center of this is a small punctate hole which is draining relatively purulent material. 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 Neurologic: The patient is awake, alert, and oriented x3. Patient's [place] Coma Scale was 15. Patient moves all 4 extremities without difficulty. Patient sensations intact to light touch throughout. Data 01/05/23 08:25 01/05/23 08:25 Micro: Microbiology 01/05/23 08:57 Blood Culture - Preliminary Blood SPECIMEN COLLECTED 01/05/23 08:53 Blood Culture - Preliminary Blood SPECIMEN COLLECTED A&P Assessment and plan (1) Abdominal wall abscess at site of surgical wound: We will take the patient to the operating room for incision and drainage of this wound. We will then packed the wound post procedure. We will make sure the patient has broad-spectrum antibiotics. The patient appears to be adequately hydrated. The risk and benefits of this procedure explained the patient and the patient's . They seem to understand these risks and benefits and would like to proceed. Coding Level of Care Code 67423 Medical Decision Making High Complexity Diagnoses Abdominal wall abscess at site of surgical wound T81.49XA
[2023-01-05] MEDS: piperacillin-tazobactam 3.375 GM in sodium chloride 0.9% (plus) 50 ML IV ×2 (11:23→18:55)
[2023-01-05] MEDS: sodium chloride 0.9% 1,000 ML 30 ML IV (12:00)
--- NOTE | 2023-01-05 12:09 | P.ANESASSM_ITS ---
Pre-Anesthetic Assessment Height/Weight: Height 1.78 m Weight 100.698 kg Temp Pulse Resp BP Pulse Ox O2 Del Method 98.4 F 73 18 113/60 97 01/05/23 11:49 01/05/23 11:49 01/05/23 11:49 01/05/23 11:49 01/05/23 11:49 01/05/23 11:49 Preop Diagnosis: Cholecystitis Operation Date: 01/05/23 11:40 Proposed Procedures p Incision And Drainage Abd(Not Applicable) - Paula Harrison MD Familial anesthetic complications: none Was Beta Jeffery taken within 24 hours: N/A Was Clonidine taken within 24 hours: N/A Social Tobacco and No alcohol Exam alert, oriented x 3 and regular rate & rhythm Airway Submandibular: within normal limits Cervical ROM: within normal limits Mallampati: Class II Dentition: false Pulmonary Chronic Obstructive Pulmonary Disease CV/HEM Hypertension GI Gastroesophageal Reflux Disease Metabolic Hyperlipidemia and Morbid Obesity Anesthetic Plan ASA status: 3 Anesthesia: General Medications/Allergies Home Medications Medication Instructions Recorded Confirmed Last Taken Type ascorbic acid (vitamin C) 500 mg 500 mg PO DAILY 09/06/20 01/05/23 01/04/23 History capsule atorvastatin 20 mg tablet 20 mg PO DAILY 09/06/20 01/05/23 01/04/23 History cholecalciferol (vitamin D3) 25 25 mcg PO DAILY 09/06/20 01/05/23 01/04/23 History mcg (1,000 unit) capsule cyanocobalamin (vitamin B-12) 1,000 mcg PO DAILY 09/06/20 01/05/23 01/04/23 History 1,000 mcg tablet,extended release krill 500 mg-omega-3 110 mg-dha 28 1 cap PO BID 09/06/20 01/05/23 01/31/22 History mg-epa 60 ql-rftjkyg-xagjj capsule multivitamin 1 tab PO DAILY 09/06/20 01/05/23 01/04/23 History omeprazole 20 mg capsule,delayed 20 mg PO DAILY 09/06/20 01/05/23 01/04/23 History release potassium chloride 20 mEq/15 mL 20 meq PO DAILY 09/06/20 01/05/23 01/04/23 History oral liquid lisinopril 20 1 tab PO DAILY #90 tabs 07/30/22 01/05/23 01/04/23 Rx mg-hydrochlorothiazide 25 mg tablet allopurinol 300 mg tablet 300 mg PO DAILY #30 tabs 10/10/22 01/05/23 01/04/23 Rx tadalafil 5 mg tablet (Cialis) 5 mg PO DAILY PRN sexual activity 11/29/22 01/05/23 Unknown Rx #20 tabs docusate sodium 100 mg capsule 100 mg PO DAILY PRN Constipation 01/05/23 0 01/05/23 Unknown History Allergies Allergy/AdvReac Type Severity Reaction Status Date / Time vancomycin AdvReac BP DROPPED Verified 10/10/22 07:44 Current Medications Generic Name Dose Route Start Last Admin Trade Name Freq PRN Reason Stop Dose Admin Piperacillin Sod/Tazobactam 50 mls @ 12.5 mls/hr 01/05/23 10:45 01/05/23 11:46 Sod 3.375 gm/ Sodium Chloride IV Infused Q8H INDIRA Infusion Protocol PFS Anesthesia Medical History Gout Hyperlipidemia Hypertension Surgical History Hx of foot surgery PLATE IN RT HEEL 2003 Hx of hand surgery CARPAL TUNNEL RIGHT HAND No pertinent past surgical history Family History Mother Cancer COLON CANCER Denies family history of Anesthesia complication Bleeding disorder Social History Smoking and tobacco status: current every day smoker cigarettes Alcohol intake: current Alcohol intake frequency: holidays/special occasions only Caregiver/support person: Yes Lives independently: Yes History of recent travel: No Data Anesthesia 01/05/23 08:25 01/05/23 08:25 Short CBC 01/05/23 Range/Units 08:25 WBC 17.3 H (4.0-10.0) 10^3/uL Hgb 15.0 (11.7-16.6) g/dL Hct 43.9 (42.0-52.0) % MCV 88.7 (80-94) fl Plt Count 312 (130-400) 10^3/cmm Neut % (Auto) 75.7 % Neut # (Auto) 13.12 H (1.8-7.7) 10^3/uL BMP 01/05/23 08:25 Sodium 132 L Potassium 3.6 Chloride 94 L Carbon Dioxide 24 BUN 19 Creatinine 1.0 Glucose 123 H Calcium 10.1 Liver Function 01/05/23 Range/Units 08:25 Total Bilirubin 0.8 (0.15-1.2) mg/dL AST 14 (0-40) U/L ALT 11 (0-41) U/L Alkaline Phosphatase 89 (40-130) U/L Albumin 3.8 (3.5-5.2) g/dL Microbiology 01/05/23 08:57 Blood Culture - Preliminary Blood SPECIMEN COLLECTED 01/05/23 08:53 Blood Culture - Preliminary Blood SPECIMEN COLLECTED Cardiac Studies: Echocardiogram 02/02/22
--- NOTE | 2023-01-05 12:35 | P.OP_ITS ---
Operative Report Date of procedure: January 05, 2023 Pre-op diagnosis: Abdominal wall abscess Post-op diagnosis: same Procedure done: Incision and drainage of abdominal wall abscess Pathology: Culture sent Surgeon: Paula Harrison Anesthesia: General Estimated blood loss: Less than 10 cc IV fluids: Please see anesthesia record Complications: None noted Findings: Abscess extensively drained. Cultures taken. Condition: stable Disposition: PACU Brief History: This is a 72-year-old gentleman who presents with abdominal pain. The patient developed drainage this morning from an abdominal wound. CT scan reveals ab dominal wall abscess. The risk and benefits of incision and drainage of been explained to the patient. The patient seems to understand these risk and benefits and would like to proceed. Procedure: Procedure in detail: The patient was brought to the operating room and placed in supine position. After adequate general endotracheal anesthesia, the patient's abdomen was prepped and draped in usual sterile fashion. Following this a timeout was performed. The patient identifiers as well as the goals of procedure were discussed. Everyone in the room agreed. A Jennifer clamp was placed in a small wound that was draining just above the umbilicus. This was opened and drained pus. This was cultured. The Bovie cautery was now used to open this incision. This opened both cephalad and to the patient's right side. The segment of tissue was removed. The patient was somewhat obese. Patient had approximately 2-1/2 to 3 cm worth of subcutaneous fat. The abscess appeared to be actually confined to the muscle. There is no foreign bodies that I can appreciate. The final dimensions of the wound were 10 cm in length 5 cm in width and 4 cm deep. The patient did have an area which tunneled more superiorly. This was also opened. This is included in the final dimensions. The wound was now irrigated with copious amounts of normal saline. The Bovie cautery was used for hemostasis. The wound was now packed with Kerlix. 4 x 4's were placed over the Curlex and then an ABD pad was placed. This was a sharp (Bovie cautery) incisional drainage. Following the procedure, I tried to find family. There was no family present.
--- NOTE | 2023-01-05 13:24 | ANE.PACU2 ---
Inpatient post-anesthesia follow up: Airway intact: Yes Vital signs: Temperature 97.2 F Pulse Rate 65 Respiratory Rate 16 Blood Pressure 109/62 Pulse Oximetry 95 Oxygen Delivery Me thod Room Air Oxygen Flow Rate 6 Fraction of Inspir ed Oxygen Hydration adequate: Yes Nausea and vomiting: No Pain level: 2 Mental status: Baseline
--- NOTE | 2023-01-05 14:10 | PC.NURSE ---
[id number] Patient arrived to room 254-1, patient accompained per patient awake and alert and oriented. VS obtained and dressing to abdomin clean dry and intact.
[2023-01-05] MEDS: morphine 4 mg/mL SDV 1 mL IVP (14:24)
[2023-01-05] MEDS: D5-NS 0.45% + KCL 20 mEq 20 MEQ/1,000 ML BAG 150 MEQ IV ×2 (14:25→21:24)
[2023-01-06] VITALS (8 sets, daily range): BP systolic 98–120; BP diastolic 50–71; PULSE 53–64; RESP 15–18; TEMP 36.5–36.9; O2SAT 91–94
[2023-01-06 02:06] LABS: Basophils % 0.1 %; Hematocrit 38.7 % (42.0-52.0); Hemoglobin 13.2 g/dL (11.7-16.6); Lymphocytes # 0.8 10^3/uL (0.8-4.8); Lymphocytes % 4.8 %; Mean Corpuscular HGB Conc 34.1 g/dL (30.0-36.0); Mean Corpuscular Hemoglobin 30.6 pg (28.0-34.0); Mean Corpuscular Volume 89.6 fl (80-94); Mean Platelet Volume 8.8 fL (7.4-10.4); Monocytes # 0.6 10^3/uL (0.2-0.9); Monocytes % 3.6 %; Neutrophils # 15.79 10^3/uL (1.8-7.7); Nucleated Red Blood Cells % 0 %; Platelet Count 285 10^3/cmm (130-400); Red Blood Count 4.32 10^6/uL (4.1-5.3); White Blood Count 17.4 10^3/uL (4.0-10.0)
[2023-01-06 02:39] LABS: Alanine Aminotransferase 9 U/L (0-41); Albumin Level 3.4 g/dL (3.5-5.2); Alkaline Phosphatase 78 U/L (40-130); Anion Gap 13.3 (5-19); Aspartate Amino Transferase 15 U/L (0-40); Blood Urea Nitrogen 26 mg/dL (8-23); Calcium 8.8 mg/dL (8.5-10.5); Carbon Dioxide 25 mmol/L (22-29); Chloride 94 mmol/L (98-107); Globulin 2.9 g/dL (1.3-4.6); Glucose 195 mg/dL (65-115); Magnesium 1.4 mg/dL (1.7-2.3); Osmolality Calculated 276 mOsm/kg (285-295); Potassium 4.3 mmol/L (3.5-5.1); Sodium 128 mmol/L (136-145); Total Bilirubin 0.4 mg/dL (0.15-1.2); Total Protein 6.3 g/dL (6.6-8.7)
[2023-01-06 02:42] LABS: Procalcitonin 0.06 ng/mL (0-0.5)
[2023-01-06] MEDS: piperacillin-tazobactam 3.375 GM in sodium chloride 0.9% (plus) 50 ML IV ×3 (02:52→17:40)
[2023-01-06] MEDS: D5-NS 0.45% + KCL 20 mEq 20 MEQ/1,000 ML BAG 150 MEQ IV (04:03)
[2023-01-06] MEDS: lisinopril 20 mg Tablet PO (08:34)
[2023-01-06] MEDS: atorvastatin 40 mg Tablet 20 MG PO (08:34)
[2023-01-06] MEDS: allopurinol 300 mg Tablet PO (08:34)
[2023-01-06] MEDS: multivitamin therapeutic Tablet 1 TAB PO (08:34)
[2023-01-06] MEDS: hydroCHLOROthiazide 25 mg Tablet PO (08:35)
[2023-01-06] MEDS: cholecalciferol (vitamin D3) 1,000 unit Tablet 1000 UNIT PO (08:35)
[2023-01-06] MEDS: ascorbic acid 500 mg Tablet PO (08:35)
[2023-01-06] MEDS: cyanocobalamin 1,000 mcg Tablet 1000 MCG PO (08:35)
[2023-01-06] MEDS: pantoprazole DR 40 mg Tablet PO (08:35)
--- NOTE | 2023-01-06 10:29 | US_ITS ---
WS: [id number] RENAL ULTRASOUND HISTORY: [email or web address] COMPARISON: None available. TECHNIQUE: 2-D and color Doppler imaging of the kidney submitted. Right kidney: 11.7 cm x 5.5 cm x 5.4 cm. Normal echogenicity with no hydronephrosis or mass. Cortical calcification upper pole. Calcification measures 1.3 cm. No obstruction. Left kidney: 14.3 cm x 5.4 cm x 6.0 cm. Normal echogenicity with no hydronephrosis or mass. Aorta: Limited visualization. Urinary Bladder: Normal distention. US/US renal BI* [id number] IMPRESSION: 1. No hydronephrosis or renal atrophy. 2. Nonobstructing cortical calcification RIGHT kidney.
--- NOTE | 2023-01-06 10:32 | P.PN_ITS ---
Subjective Subjective: Hospital course, labs appreciated. On examination patient sitting up in bed today. Denies any nausea or vomiting, headache. Postoperatively for yesterday. Dressing looks clean. Asking if he can go home today. Vitals/I&O/Wt Last Vital Signs Temp 98.0 F 01/06/23 08:00 Pulse 64 01/06/23 08:00 Resp 18 01/06/23 08:00 BP 103/64 01/06/23 08:00 Pulse Ox 94 01/06/23 08:00 O2 Del Method 01/06/23 08:00 O2 Flow Rate 6 01/05/23 12:50 01/05/23 01/06/23 01/06/23 22:59 06:59 14:59 Intake Total 1000 / 1100 1527.5 / 2627.5 1010 / 1010 Output Total 275 / 285 Balance 725 / 815 1527.5 / 2342.5 1010 / 1010 Weight last 48 hrs Weight 100.698 kg Data 01/06/23 01:38 01/06/23 01:38 Micro: Microbiology 01/05/23 08:57 Blood Culture - Preliminary Blood NEGATIVE TO DATE 01/05/23 08:53 Blood Culture - Preliminary Blood NEGATIVE TO DATE 01/05/23 12:21 Gram Stain - Final Abdomen A&P Assessment and plan (1) Abdominal wall abscess at site of surgical wound: CT abdomen pelvis w con:Anterior abdominal wall complex lesion/multiloculated fluid collection, concerning for abscess. S/p I&D Follow blood culture Wound culture Currently on [facility] Surgery on board (2) Gout: Continue allopurinol (3) Hypertension: Continue lisinopril hydrochlorothiazide (4) CHRISSIE (acute kidney injury): (5) Hyponatremia: Coding Level of Care Code Acute Code for [facility] Fwd Diagnoses Abdominal wall abscess at site of surgical wound T81.49XA Gout M10.9 Hypertension I10 CHRISSIE (acute kidney injury) N17.9 Hyponatremia E87.1
[2023-01-06] MEDS: linezolid 600 mg Tablet PO ×2 (11:21→23:14)
[2023-01-06] MEDS: sodium chloride 0.9% 1,000 ML 150 ML IV ×2 (11:22→20:21)
[2023-01-06 11:27] LABS: Iron 50 ug/dL (59-158); Percent Saturation 28.9 % (20-50); Total Iron Binding Capacity 173 mcg/dl; Unsaturated Iron Binding 123 ug/dL (112-347)
[2023-01-06 11:43] LABS: Estmated Average Glucose 114; Hemoglobin A1C 5.6 % (4.0-6.0)
[2023-01-06 11:59] LABS: Glucose Point of Care 139 mg/dL (70-110)
[2023-01-06 12:05] LABS: Folate Level > 20.0 ng/mL (4.5-32.2)
--- NOTE | 2023-01-06 12:24 | P.PN_ITS ---
Subjective Subjective: Hospital course, labs appreciated. Today morning seen sitting up in bed. Denies any nausea, vomiting, headache. Denies any pain at the operative site. A pressure bandage dry in appearance. Patient has remained hemodynamically stable and afebrile. Urine output charted only up to 285 cc in last 24 hours though seems to be erroneous. Vitals/I&O/Wt Last Vital Signs Temp 97.7 F 01/06/23 12:00 Pulse 61 01/06/23 12:00 Resp 18 01/06/23 12:00 BP 106/55 01/06/23 12:00 Pulse Ox 91 01/06/23 12:00 O2 Del Method 01/06/23 12:00 O2 Flow Rate 6 01/05/23 12:50 01/05/23 01/06/23 01/06/23 22:59 06:59 14:59 Intake Total 1000 / 1100 1527.5 / 2627.5 2704.5 / 2704.5 Output Total 275 / 285 Balance 725 / 815 1527.5 / 2342.5 2704.5 / 2704.5 Weight last 48 hrs Weight 100.698 kg Physical Exam Narrative: General: No acute distress, AO x3 HEENT: PERRLA, pupils bilaterally equal and reactive Chest: Normal vesicular breath sounds, no added sounds, equal good air entry bilaterally CVS: S1-S2 regular, no murmurs, no tachycardia, no gallops, no rubs Abdomen: Soft, surgical bandage present, no drainage, distended, bowel sounds present Neuro: No focal deficits, no facial deformity, AO x3, power 5/5 in all limbs Data 01/06/23 01:38 01/06/23 01:38 Micro: Microbiology 01/05/23 08:57 Blood Culture - Preliminary Blood NEGATIVE TO DATE 01/05/23 08:53 Blood Culture - Preliminary Blood NEGATIVE TO DATE 01/05/23 12:21 Gram Stain - Final Abdomen A&P Assessment and plan (1) Abdominal wall abscess at site of surgical wound: Post I&D day 1. Follow-up culture results. Follow-up blood cultures. Check MRSA swab, HbA1c. For now continue with Zosyn, add linezolid. Patient allergic to vancomycin. If MRSA is negative can discontinue linezolid. (2) CHRISSIE (acute kidney injury): Baseline creatinine seems to be less than 1. Today morning shows 1.7. Urine output charted up to only 285 which could be error as well. Hold off on lisinopril and hydrochlorothiazide for now. Repeat CMP. Check urine lites, urine creatinine if BMP again comes back high. Check renal ultrasound. (3) Hyponatremia: Sodium down to 127 today. Repeat CMP as above. Continue with normal saline at 75 cc/h. (4) Hypertension: Goal blood pressure less than 140 over 90 mmHg. Patient received lisinopril hydrochlorothiazide today. For now hold off until we have repeat CMP. Will change as per clinical picture and blood work. Plan Analgesia: Tylenol as needed, change Percocet to every 6 hours Glycemic control: Not needed. Check A1c. Nutrition: Cardiac diet CODE STATUS: Full code PUD prophylaxis: Protonix DVT prophylaxis: Low probability of VTE. Early ambulation. Discharge planning: Home once medically stable possibly within next 24 hours on oral antibiotics as per culture results. [facility]. This documentation was created by [employer] nurse practitioner software. Every effort was made to ensure accuracy of nurse practitioner. Any obvious errors or omissions should be clarified with the author of the document. Attestations Medical Necessity Statement*: Requires further hospitalization for management of abdominal wall abscess, acute kidney injury, hyponatremia Coding Level of Care Code 42784 High MDM includes risk/complexity, reviewing previous or external records, reviewing test results, ordering lab/other test(s), independently interpretating test(s) (not separately recorded) and discussion of management or test(s) w/ other healthcare professional and High Time for a total of 50 minutes, includes reviewing past or interval history, examining/interviewing patient, placing orders, counseling patient/family/other support, updating patient/family/other support, discussing plan of care with staff, communicating with other healthcare providers, documenting encounter and coordinating care Diagnoses Abdominal wall abscess at site of surgical wound T81.49XA CHRISSIE (acute kidney injury) N17.9 Hyponatremia E87.1 Hypertension I10
[2023-01-06 12:57] LABS: Alanine Aminotransferase 12 U/L (0-41); Albumin Level 3.8 g/dL (3.5-5.2); Alkaline Phosphatase 98 U/L (40-130); Anion Gap 19.2 (5-19); Aspartate Amino Transferase 13 U/L (0-40); Blood Urea Nitrogen 23 mg/dL (8-23); Calcium 9.8 mg/dL (8.5-10.5); Carbon Dioxide 23 mmol/L (22-29); Chloride 94 mmol/L (98-107); Chol HDL Ratio 4.52 mg/dL (1.0-5.00); Cholesterol 140 mg/dL (0-200); Globulin 2.7 g/dL (1.3-4.6); Glucose 119 mg/dL (65-115); HDL Cholesterol 31 mg/dL (60-100); LDL Cholesterol Calculated 83 mg/dL (50-129); Osmolality Calculated 279 mOsm/kg (285-295); Potassium 4.2 mmol/L (3.5-5.1); Sodium 132 mmol/L (136-145); Thyroid Stimulating Hormone 2.48 uIU/mL (0.27-4.20); Total Bilirubin 0.9 mg/dL (0.15-1.2); Total Protein 6.5 g/dL (6.6-8.7); Triglycerides 132 mg/dL (0-150); VLDL Cholestrol Calculation 26 mg/dL (0-30)
[2023-01-06 13:19] LABS: Vitamin B12 > 2000 pg/mL (232-1245)
[2023-01-06] MEDS: ferrous gluconate 324 mg Tablet PO (17:40)
[2023-01-06 19:21] LABS: Urine Random Chloride 22 mmol/L; Urine Random Sodium 27 mmol/L
[2023-01-06 19:28] LABS: Potassium, Radom Urine 21 mmol/L
[2023-01-06] MEDS: oxyCODONE-APAP 5-325 mg Tablet 1 TAB PO (23:15)
[2023-01-07] MEDS: piperacillin-tazobactam 3.375 GM in sodium chloride 0.9% (plus) 50 ML IV ×2 (01:57→10:00)
[2023-01-07 03:10] LABS: Basophils # 0.1 10^3/uL (0.0-0.1); Basophils % 0.4 %; Eosinophils # 0.2 10^3/uL (0.0-0.8); Eosinophils % 1.2 %; Hematocrit 37.2 % (42.0-52.0); Hemoglobin 12.8 g/dL (11.7-16.6); Lymphocytes # 2.3 10^3/uL (0.8-4.8); Lymphocytes % 13.8 %; Mean Corpuscular HGB Conc 34.4 g/dL (30.0-36.0); Mean Corpuscular Hemoglobin 30.8 pg (28.0-34.0); Mean Corpuscular Volume 89.4 fl (80-94); Mean Platelet Volume 8.3 fL (7.4-10.4); Monocytes # 0.9 10^3/uL (0.2-0.9); Monocytes % 5.1 %; Neutrophils # 13.27 10^3/uL (1.8-7.7); Neutrophils % 78.9 %; Nucleated Red Blood Cells % 0 %; Platelet Count 269 10^3/cmm (130-400); Red Blood Count 4.16 10^6/uL (4.1-5.3); Red Cell Distribution Width 13.1 % (12.1-15.1); White Blood Count 16.8 10^3/uL (4.0-10.0)
[2023-01-07] MEDS: sodium chloride 0.9% 1,000 ML 150 ML IV ×2 (03:21→10:13)
[2023-01-07 03:27] LABS: Alanine Aminotransferase 14 U/L (0-41); Albumin Level 3.3 g/dL (3.5-5.2); Alkaline Phosphatase 66 U/L (40-130); Anion Gap 16.3 (5-19); Aspartate Amino Transferase 20 U/L (0-40); Blood Urea Nitrogen 31 mg/dL (8-23); Calcium 8.1 mg/dL (8.5-10.5); Carbon Dioxide 22 mmol/L (22-29); Chloride 102 mmol/L (98-107); Globulin 2.6 g/dL (1.3-4.6); Glucose 112 mg/dL (65-115); Osmolality Calculated 289 mOsm/kg (285-295); Potassium 4.3 mmol/L (3.5-5.1); Sodium 136 mmol/L (136-145); Total Bilirubin 0.4 mg/dL (0.15-1.2); Total Protein 5.9 g/dL (6.6-8.7)
[2023-01-07 04:00] VITALS: BP 125/69; PULSE 56; RESP 15; TEMP 36.9; O2SAT 95
[2023-01-07 05:54] VITALS: PULSE 56
[2023-01-07 08:00] VITALS: BP 129/68; PULSE 53; RESP 18; TEMP 36.5; O2SAT 92
[2023-01-07] MEDS: ferrous gluconate 324 mg Tablet PO (09:04)
[2023-01-07] MEDS: cholecalciferol (vitamin D3) 1,000 unit Tablet 1000 UNIT PO (09:04)
[2023-01-07] MEDS: cyanocobalamin 1,000 mcg Tablet 1000 MCG PO (09:04)
[2023-01-07] MEDS: multivitamin therapeutic Tablet 1 TAB PO (09:04)
[2023-01-07] MEDS: atorvastatin 40 mg Tablet 20 MG PO (09:05)
[2023-01-07] MEDS: ascorbic acid 500 mg Tablet PO (09:05)
[2023-01-07] MEDS: pantoprazole DR 40 mg Tablet PO (09:05)
[2023-01-07] MEDS: linezolid 600 mg Tablet PO (10:00)
[2023-01-07 11:47] VITALS: BP 123/55; PULSE 58; RESP 18; TEMP 36.5; O2SAT 91
--- NOTE | 2023-01-07 12:16 | P.DS_ITS ---
Discharge Providers Date of Admission: 01/05/23 12:27 Date of Discharge: January 07, 2023 Attending Provider at Admission: Paula Harrison MD Attending Provider at Discharge: Lex Mckeon MD Consults: Surgery: Dr. Harrison Primary Care Provider: Patrice Huang MD Diagnoses at Discharge Discharge Diagnosis (1) Abdominal wall abscess at site of surgical wound: Status: Acute (2) CHRISSIE (acute kidney injury): Status: Acute (3) Hyponatremia: Status: Acute (4) Hypertension: Status: Acute Reason for Visit Reason for Visit: abd bleeding Brief History: History as per HPI: Byron Hector is a 72 year old male with past medical history of gout, hypertension, laparoscopic cholecystectomy approximately 1 year ago.? Patient developed periumbilical pain over the last several days.? The patient saw his primary care physician who thought that that may be a hernia.? The patient was referred to the general surgeon.? This morning the patient sneezed and then had fluid drained from his abdominal wall.? He presented to the emergency room.? The patient denies fever or chills.? In the emergency room the patient underwent a CT scan of his abdomen pelvis which is suggestive of abdominal wall abscess. Hospital Course Hospital Course Patient was admitted to the hospital for further evaluation and management. He started on broad-spectrum antibiotics and surgery was consulted for further management. He underwent I&D on 01/05. OR cultures were sent. Cultures so far are growing possible strep. His hospitalization was complicated by him developing mild acute kidney injury. His kidney function seems to be stable to improving. He has been discharged hemodynamically stable condition on oral Augmentin and Levaquin for next 7 days. Wound care directions have been discussed in detail with the patient. He will follow-up at wound care clinic till he is seen by Dr. Simon in 2 weeks onsite appointment. He is to follow-up with his primary care provider within next 1 week for repeat BMP and to follow-up final wound cultures. For now he is not to take lisinopril/hydrochlorothiazide combination along with allopurinol and potassium supplement for next 2 weeks. He can take amlodipine 5 mg daily for high blood pressure. He is to monitor his blood pressure daily Maintaining a blood pressure diary and follow-up with the primary care provider for further adjustment of antihypertensives as needed. Discharge plan was discussed in detail with the patient and he verbalized understanding. Physical Exam Narrative: General: No acute distress, AO x3 HEENT: PERRLA, pupils bilaterally equal and reactive Chest: Normal vesicular breath sounds, no added sounds, equal good air entry bilaterally CVS: S1-S2 regular, no murmurs, no tachycardia, no gallops, no rubs Abdomen: Soft, surgical bandage present, no drainage, distended, bowel sounds present Neuro: No focal deficits, no facial deformity, AO x3, power 5/5 in all limbs Discharge Data Studies Completed and Pending Completed Studies During Hospitalization Category Date Time Status CT abdomen pelvis w con* [id number] Stat Cat Scan 01/05/23 08:24 Completed US renal BI* [id number] Routine Ultrasound 01/06/23 10:29 Completed Pending at discharge Category Date Time Status Abscess Culture and Gram Stain Routine Lab 01/05/23 12:21 Results Anaerobic Culture Routine Lab 01/05/23 12:21 Received Blood Culture Stat Lab 01/05/23 08:57 Results Complete Blood Count w/Auto AM LABS Lab 01/08/23 04:00 Ordered Comprehensive Metabolic Panel AM LABS Lab 01/08/23 04:00 Ordered Radiology Impressions Abdomen/Pelvis CT 01/05/23 08:24 IMPRESSION: Anterior abdominal wall complex lesion/multiloculated fluid collection, concerning for abscess. Complex mass lesion can have this appearance and should be considered in the adequate clinical setting. Renal Ultrasound 01/06/23 10:29 IMPRESSION: 1. No hydronephrosis or renal atrophy. 2. Nonobstructing cortical calcification RIGHT kidney. Laboratory Results WBC 16.8 10^3/uL (4.0-10.0) H 01/07/23 03:04 RBC 4.16 10^6/uL (4.1-5.3) 01/07/23 03:04 Hgb 12.8 g/dL (11.7-16.6) 01/07/23 03:04 Hct 37.2 % (42.0-52.0) L 01/07/23 03:04 MCV 89.4 fl (80-94) 01/07/23 03:04 MCH 30.8 pg (28.0-34.0) 01/07/23 03:04 MCHC 34.4 g/dL (30.0-36.0) 01/07/23 03:04 RDW 13.1 % (12.1-15.1) 01/07/23 03:04 Plt Count 269 10^3/cmm (130-400) 01/07/23 03:04 MPV 8.3 fL (7.4-10.4) 01/07/23 03:04 Neut % (Auto) 78.9 % 01/07/23 03:04 Lymph % (Auto) 13.8 % 01/07/23 03:04 Gaines % (Auto) 5.1 % 01/07/23 03:04 Eos % (Auto) 1.2 % 01/07/23 03:04 Baso % (Auto) 0.4 % 01/07/23 03:04 Neut # (Auto) 13.27 10^3/uL (1.8-7.7) H 01/07/23 03:04 Lymph # (Auto) 2.3 10^3/uL (0.8-4.8) 01/07/23 03:04 Gaines # (Auto) 0.9 10^3/uL (0.2-0.9) 01/07/23 03:04 Eos # (Auto) 0.2 10^3/uL (0.0-0.8) 01/07/23 03:04 Baso # (Auto) 0.1 10^3/uL (0.0-0.1) 01/07/23 03:04 Nucleated RBC % (auto) 0 % 01/07/23 03:04 Nucleated RBCs # 0.0 /100WBC 01/07/23 03:04 Sodium 136 mmol/L (136-145) 01/07/23 03:04 Potassium 4.3 mmol/L (3.5-5.1) 01/07/23 03:04 Chloride 102 mmol/L (98-107) 01/07/23 03:04 Carbon Dioxide 22 mmol/L (22-29) 01/07/23 03:04 Anion Gap 16.3 (5-19) 01/07/23 03:04 BUN 31 mg/dL (8-23) H 01/07/23 03:04 Creatinine 1.6 mg/dL (0.7-1.2) H 01/07/23 03:04 GFR Calculation Not Reportable 01/07/23 03:04 Glucose 112 mg/dL (65-115) 01/07/23 03:04 POC Glucose 139 mg/dL (70-110) H 01/06/23 11:54 Estimat Average Glucose 114 01/06/23 01:38 Hemoglobin A1c 5.6 % (4.0-6.0) 01/06/23 01:38 Calculated Osmolality 289 mOsm/kg (285-295) 01/07/23 03:04 Calcium 8.1 mg/dL (8.5-10.5) L 01/07/23 03:04 Magnesium 1.4 mg/dL (1.7-2.3) L 01/06/23 01:38 Iron 50 ug/dL (59-158) L 01/06/23 01:38 TIBC 173 mcg/dl 01/06/23 01:38 % Saturation 28.9 % (20-50) 01/06/23 01:38 Unsat Iron Binding 123 ug/dL (112-347) 01/06/23 01:38 Total Bilirubin 0.4 mg/dL (0.15-1.2) 01/07/23 03:04 AST 20 U/L (0-40) 01/07/23 03:04 ALT 14 U/L (0-41) 01/07/23 03:04 Alkaline Phosphatase 66 U/L (40-130) 01/07/23 03:04 Total Protein 5.9 g/dL (6.6-8.7) L 01/07/23 03:04 Albumin 3.3 g/dL (3.5-5.2) L 01/07/23 03:04 Globulin 2.6 g/dL (1.3-4.6) 01/07/23 03:04 Triglycerides 132 mg/dL (0-150) 01/06/23 12:21 Cholesterol 140 mg/dL (0-200) 01/06/23 12:21 LDL Cholesterol, Calc 83 mg/dL (50-129) 01/06/23 12:21 Total VLDL Cholesterol 26 mg/dL (0-30) 01/06/23 12:21 HDL Cholesterol 31 mg/dL (60-100) L 01/06/23 12:21 Cholesterol/HDL Ratio 4.52 mg/dL (1.0-5.00) 01/06/23 12:21 Vitamin B12 > 2000 pg/mL (232-1245) H 01/06/23 12:21 Folate > 20.0 ng/mL (4.5-32.2) 01/06/23 08:25 Procalcitonin 0.06 ng/mL (0-0.5) 01/06/23 01:38 TSH 2.48 uIU/mL (0.27-4.20) 01/06/23 12:21 Ur Random Sodium 27 mmol/L 01/06/23 17:45 Ur Random Potassium 21 mmol/L 01/06/23 17:45 Ur Random Chloride 22 mmol/L 01/06/23 17:45 Vitals Last Vital Signs Temp 97.7 F 01/07/23 11:47 Pulse 58 L 01/07/23 11:47 Resp 18 01/07/23 11:47 BP 123/55 01/07/23 11:47 Pulse Ox 91 01/07/23 11:47 O2 Del Method 01/07/23 11:47 O2 Flow Rate 6 01/05/23 12:50 Discharge Plan Discharge Patient Disposition: Home Condition: Stable Prescriptions: New amoxicillin-pot clavulanate [Augmentin] 500-125 mg tablet 1 tab PO Q12H Qty: 14 0RF levofloxacin 500 mg tablet 500 mg PO Q24H 7 Days Qty: 7 0RF amlodipine 5 mg tablet 5 mg PO DAILY Qty: 30 0RF Continued omeprazole 20 mg capsule,delayed release(DR/EC) 20 mg PO DAILY atorvastatin 20 mg tablet 20 mg PO DAILY cyanocobalamin (vitamin B-12) 1,000 mcg tablet extended release 1,000 mcg PO DAILY [id number] mg capsule 1 cap PO BID cholecalciferol (vitamin D3) 25 mcg (1,000 unit) capsule 25 mcg PO DAILY multivitamin Tablet 1 tab PO DAILY ascorbic acid (vitamin C) 500 mg capsule 500 mg PO DAILY tadalafil [Cialis] 5 mg tablet 5 mg PO DAILY PRN (Reason: sexual activity) Qty: 20 2RF docusate sodium 100 mg Capsule 100 mg PO DAILY PRN (Reason: Constipation) Held allopurinol 300 mg tablet 300 mg PO DAILY Qty: 30 11RF Hold Instructions: Resume on 01/21/23. lisinopril-hydrochlorothiazide 20-25 mg tablet 1 tab PO DAILY Qty: 90 3RF Hold Instructions: Resume on 01/21/23. Discontinued potassium chloride 20 mEq/15 mL liquid 20 meq PO DAILY Discharge Orders: Discharge Order (Routine); Ordered 01/07/23 Ordered By: Lex Mckeon Referrals: Partha Simon DO [Physician] - 01/21/23 2:00 pm () Patrice Huang MD [Primary Care Provider] - 4-7 days [facility], [Staff Physician] - 1-3 days Discharge Diet: Regular Discharge Activity: Resume usual activity and Increase activity as tolerated Patient Instructions: Opioid Safety Activity Restrictions/Additional Instructions: Pack wound with wet to dry dressing daily and cover with Abd until you follow up with Dr. Simon in the clinic. If you have any issues with the dressing or have questions call the clinic. Please follow-up with your primary care provider within next 1 week for repeat BMP and to follow-up final wound cultures. For now do not take lisinopril/hydrochlorothiazide combination along with allopurinol for next 2 weeks. Also do not take potassium supplement. You will be on 2 antibiotics Augmentin and Levaquin for next 7 days. Please check your blood pressure daily and maintain a blood pressure diary and follow-up with a primary care provider for further adjustment of antihypertensive needed. For now your antihypertensive/blood pressure medication has been changed to amlodipine 5 mg daily. Discharge Attestations Time Spent in Discharge Care*: greater than 30 min Specific Discharge Activities: educating patient, discussing with pcp/other providers, discussing with comp field case manager/social workers/dc planners, documenting/other paperwork and evaluating patient/reviewing data Quality Metrics Clinical Quality Measures [ No reported AMI, CVA or VTE this stay] Coding Level of Care Code 52058 Total time (in minutes) for Discharge: 40 Diagnoses Abdominal wall abscess at site of surgical wound T81.49XA CHRISSIE (acute kidney injury) N17.9 Hyponatremia E87.1 Hypertension I10
[2023-01-07 16:06] VITALS: BP 123/55; PULSE 58; RESP 18; TEMP 36.5; O2SAT 91
== END 2023-01-07 16:07 | disposition home or self-care (01) | DRG 857 ==
LOC: ER 10:55 → OR 11:09 → MEDSURG 13:10
PROVIDERS: Internal Medicine; Admitting Provider Surgery Surgical Critical Care; Emergency Provider Family Medicine; PCP Family Medicine; Visit Provider Student in an Organized Health Care Education/Training Program
PROC: 0W9F0ZZ Drainage of Abdominal Wall, Open Approach (ICD-10-PCS; principal; 2023-01-05 11:40)
DX: T81.42XA Infection following a procedure, deep incisional surgical site, initial encounter (principal); E87.1 Hypo-osmolality and hyponatremia; L02.211 Cutaneous abscess of abdominal wall; N17.9 Acute kidney failure, unspecified; Y83.8 Other surgical procedures as the cause of abnormal reaction of the patient, or of later complication, without mention of misadventure at the time of the procedure; B95.4 Other streptococcus as the cause of diseases classified elsewhere; I10 Essential (primary) hypertension; M10.9 Gout, unspecified; E78.5 Hyperlipidemia, unspecified; F17.210 Nicotine dependence, cigarettes, uncomplicated; K21.9 Gastro-esophageal reflux disease without esophagitis; E66.01 Morbid (severe) obesity due to excess calories; Z68.31 Body mass index [BMI] 31.0-31.9, adult; Z90.49 Acquired absence of other specified parts of digestive tract
CPT/HCPCS: 12345; 36415; 36416; 74177; 76770; 80053; 80061; 82436; 82607; 82746; 82962; 83036; 83540; 83550; 83735; 84133; 84145; 84300; 84443; 85025; 87040; 87070; 87075; 87077; 87186; 87205; 87641; 96365; 99255; 99285; J0131; J0330; J0690; J1100; J2270; J2405; J2543; J2704; J3010; J3490; J7030; Q9967

== ENCOUNTER → 2023-01-10 09:25 | Outpatient (BNVA) | payer MEDICARE, SELFPAY | PROVIDERS: PCP Family Medicine; Visit Provider Thoracic Surgery (Cardiothoracic Vascular Surgery) | DX: T81.31XD Disruption of external operation (surgical) wound, not elsewhere classified, subsequent encounter (principal); Y83.8 Other surgical procedures as the cause of abnormal reaction of the patient, or of later complication, without mention of misadventure at the time of the procedure; I96 Gangrene, not elsewhere classified | CPT/HCPCS: 97597; 97598; 99213; A6219 ==

== ENCOUNTER → 2023-01-14 14:38 | Outpatient (BNVA) | payer MEDICARE, SELFPAY | PROVIDERS: PCP Family Medicine; Visit Provider Family Medicine | DX: N17.9 Acute kidney failure, unspecified (principal); T81.49XA Infection following a procedure, other surgical site, initial encounter; I10 Essential (primary) hypertension; Y83.8 Other surgical procedures as the cause of abnormal reaction of the patient, or of later complication, without mention of misadventure at the time of the procedure | CPT/HCPCS: 80048; 85025 ==

== ENCOUNTER 2023-01-16 10:53 | Outpatient (RCR) | payer MEDICARE, SELFPAY ==
[2023-01-08 12:35] VITALS: BP 179/66; PULSE 78; RESP 18; TEMP 37.2; O2SAT 94
--- NOTE | 2023-01-08 13:11 | PC.NURSE ---
Pt to GI infusions for dressing change to abdomen. Midline abdominal wound from abscess drainage noted 8 cm x 6 cm x 3.5 cm. Undermining starting at 12 o'clock and moving to 4 o'clock with 2 cm noted. Wound bed cleansed with saline, packed with 4x4's, covered with ABD pad, and secured with tape. Pt tolerated well. Scheduled to see Wound Care this Friday at 10 am.
[2023-01-09 12:52] VITALS: BP 168/80; PULSE 72; RESP 18; TEMP 36; O2SAT 93
--- NOTE | 2023-01-09 12:53 | PC.NURSE ---
Dressing to midline abd changed as ordered. Pt tolerated well. Pt aware of wound care appointment tomorrow at 10:00.
[2023-01-13 12:50] VITALS: BP 164/83; PULSE 72; RESP 18; TEMP 36.9; O2SAT 96
--- NOTE | 2023-01-13 12:55 | PC.NURSE ---
Pt to GI infusions for dressing change to abdomen. Wet to dry dressing change performed. Pt tolerated well. Pt to be admitted to home health tomorrow and have vac placed on Friday at Wound Care. Pt to see this nurse one last time on Friday and then home health to assume care.
[2023-01-15 08:50] VITALS: BP 172/67; PULSE 95; RESP 18; TEMP 36.1; O2SAT 96
[2023-01-16 11:00] VITALS: BP 157/65; PULSE 91; RESP 18; TEMP 36.3; O2SAT 97
--- NOTE | 2023-01-16 11:12 | PC.NURSE ---
Pt to have vac placed tomorrow at Wound Care. Home health and Wound Care Center to assume dressing changes with wound vac.
== END 2023-01-28 23:59 | disposition home or self-care (01) ==
LOC: GILAB 10:53
PROVIDERS: PCP Family Medicine; Visit Provider Student in an Organized Health Care Education/Training Program
DX: T81.49XA Infection following a procedure, other surgical site, initial encounter (principal); Y83.8 Other surgical procedures as the cause of abnormal reaction of the patient, or of later complication, without mention of misadventure at the time of the procedure
CPT/HCPCS: 99212

== ENCOUNTER → 2023-01-17 10:01 | Outpatient (BNVA) | payer MEDICARE, SELFPAY | PROVIDERS: PCP Family Medicine; Visit Provider Thoracic Surgery (Cardiothoracic Vascular Surgery) | DX: I96 Gangrene, not elsewhere classified (principal); T81.31XD Disruption of external operation (surgical) wound, not elsewhere classified, subsequent encounter; Y83.8 Other surgical procedures as the cause of abnormal reaction of the patient, or of later complication, without mention of misadventure at the time of the procedure | CPT/HCPCS: 11042; 11045; A6237; A6250 ==

== ENCOUNTER → 2023-01-21 13:47 | Outpatient (BNVA) | payer MEDICARE, SELFPAY | PROVIDERS: PCP Family Medicine; Visit Provider Surgery | DX: T81.49XA Infection following a procedure, other surgical site, initial encounter (principal); X58.XXXA Exposure to other specified factors, initial encounter | CPT/HCPCS: 99203 ==

== ENCOUNTER → 2023-01-24 10:30 | Outpatient (BNVA) | payer MEDICARE, SELFPAY | PROVIDERS: PCP Family Medicine; Visit Provider Thoracic Surgery (Cardiothoracic Vascular Surgery) | DX: T81.89XD Other complications of procedures, not elsewhere classified, subsequent encounter (principal); Y83.8 Other surgical procedures as the cause of abnormal reaction of the patient, or of later complication, without mention of misadventure at the time of the procedure; I96 Gangrene, not elsewhere classified | CPT/HCPCS: 11042; 11045; 97605; A6237 ==

== ENCOUNTER → 2023-01-31 10:23 | Outpatient (BNVA) | payer MEDICARE, SELFPAY | PROVIDERS: PCP Family Medicine; Visit Provider Thoracic Surgery (Cardiothoracic Vascular Surgery) | DX: T81.31XD Disruption of external operation (surgical) wound, not elsewhere classified, subsequent encounter (principal); Y83.8 Other surgical procedures as the cause of abnormal reaction of the patient, or of later complication, without mention of misadventure at the time of the procedure; I96 Gangrene, not elsewhere classified | CPT/HCPCS: 11042; 97605; A6237; A6250 ==

== ENCOUNTER → 2023-02-07 10:22 | Outpatient (BNVA) | payer MEDICARE, SELFPAY | PROVIDERS: PCP Family Medicine; Visit Provider Thoracic Surgery (Cardiothoracic Vascular Surgery) | DX: T81.89XD Other complications of procedures, not elsewhere classified, subsequent encounter (principal); Y83.8 Other surgical procedures as the cause of abnormal reaction of the patient, or of later complication, without mention of misadventure at the time of the procedure; I96 Gangrene, not elsewhere classified | CPT/HCPCS: 11042; A6446 ==

== ENCOUNTER → 2023-02-14 09:54 | Outpatient (BNVA) | payer MEDICARE, SELFPAY | PROVIDERS: PCP Family Medicine; Visit Provider Thoracic Surgery (Cardiothoracic Vascular Surgery) | DX: T81.31XD Disruption of external operation (surgical) wound, not elsewhere classified, subsequent encounter (principal); Y83.8 Other surgical procedures as the cause of abnormal reaction of the patient, or of later complication, without mention of misadventure at the time of the procedure | CPT/HCPCS: 11042; A6212 ==

== ENCOUNTER → 2023-02-21 10:21 | Outpatient (BNVA) | payer MEDICARE, SELFPAY | PROVIDERS: PCP Family Medicine; Visit Provider Thoracic Surgery (Cardiothoracic Vascular Surgery) | DX: T81.31XD Disruption of external operation (surgical) wound, not elsewhere classified, subsequent encounter (principal); Y83.8 Other surgical procedures as the cause of abnormal reaction of the patient, or of later complication, without mention of misadventure at the time of the procedure; I96 Gangrene, not elsewhere classified | CPT/HCPCS: 11042; A6446 ==

== ENCOUNTER → 2023-02-28 09:42 | Outpatient (BNVA) | payer MEDICARE, SELFPAY | PROVIDERS: PCP Family Medicine; Visit Provider Thoracic Surgery (Cardiothoracic Vascular Surgery) | DX: T81.31XD Disruption of external operation (surgical) wound, not elsewhere classified, subsequent encounter (principal); Y83.8 Other surgical procedures as the cause of abnormal reaction of the patient, or of later complication, without mention of misadventure at the time of the procedure; I96 Gangrene, not elsewhere classified | CPT/HCPCS: 11042; 87070; A6212; A6446 ==

== ENCOUNTER → 2023-03-06 13:43 | Outpatient (BNVA) | payer MEDICARE, SELFPAY | PROVIDERS: PCP Family Medicine; Visit Provider Nurse Practitioner Family | DX: T81.31XD Disruption of external operation (surgical) wound, not elsewhere classified, subsequent encounter (principal); Y83.8 Other surgical procedures as the cause of abnormal reaction of the patient, or of later complication, without mention of misadventure at the time of the procedure; I96 Gangrene, not elsewhere classified | CPT/HCPCS: 11042 ==

== ENCOUNTER → 2023-03-13 13:35 | Outpatient (BNVA) | payer MEDICARE, SELFPAY | PROVIDERS: PCP Family Medicine; Visit Provider Nurse Practitioner Family | DX: T81.31XD Disruption of external operation (surgical) wound, not elsewhere classified, subsequent encounter (principal); Y83.8 Other surgical procedures as the cause of abnormal reaction of the patient, or of later complication, without mention of misadventure at the time of the procedure | CPT/HCPCS: 11042; A6212; A6446 ==

== ENCOUNTER → 2023-03-20 13:28 | Outpatient (BNVA) | payer MEDICARE, SELFPAY | PROVIDERS: PCP Family Medicine; Visit Provider Nurse Practitioner Family | DX: I96 Gangrene, not elsewhere classified (principal); T81.31XD Disruption of external operation (surgical) wound, not elsewhere classified, subsequent encounter; Y83.8 Other surgical procedures as the cause of abnormal reaction of the patient, or of later complication, without mention of misadventure at the time of the procedure | CPT/HCPCS: 11042; A6446 ==

== ENCOUNTER 2023-04-03 09:14 | Emergency (ER) | payer MEDICARE, SELFPAY ==
[2023-04-03 09:24] VITALS: BP 145/82; PULSE 80; RESP 14; TEMP 36.8; O2SAT 95
--- NOTE | 2023-04-03 09:37 | CTR_ITS ---
PROCEDURE INFORMATION: Exam: CT Abdomen And Pelvis With Contrast Exam date and time: 04/03/2023 10:37 AM Age: 72 years old Clinical indication: Abdominal pain; Prior surgery; Surgery type: Abcess in abdomen, gb; Patient HX: PT comes from wound care where he has been treated for an abdominal wound from a previous abcess. PT states wound care provider believes that PT has tunneling and possible stool in wound; Additional info: Abd pain TECHNIQUE: Imaging protocol: Computed tomography of the abdomen and pelvis with contrast. Radiation optimization: All CT scans at this facility use at least one of these dose optimization techniques: automated exposure control; mA and/or kV adjustment per patient size (includes targeted exams where dose is matched to clinical indication); or iterative reconstruction. Contrast material: OMNI 350; Contrast volume: 100 ml; Contrast route: INTRAVENOUS (IV); REPORTING DATA: Count of CT and Cardiac NM exams in prior 12 months: This patient has received [address] and 0 known cardiac nuclear medicine studies in the 12 months prior to the current study. COMPARISON: CT abdomen pelvis w con* [id number] 01/05/2023 9:42 AM RADIATION DOSE METRICS: Total DLP (mGy-cm): 923.74 FINDINGS: Lungs: Mild dependent atelectasis is seen. Mild emphysematous changes are seen. Partially visualized moderate coronary arterial atherosclerotic vascular calcifications are seen. Liver: Normal liver attenuation. No mass. Gallbladder and bile ducts: Status post prior cholecystectomy. No biliary ductal dilatation. Pancreas: Unremarkable CT appearance of the pancreatic parenchyma. No ductal dilatation. Spleen: Normal splenic parenchymal attenuation. No splenomegaly. Adrenal glands: Normal CT appearance of the adrenals. No mass. Kidneys and ureters: Unchanged right kidney upper pole 0.8 x 1 cm calculus is seen. No contour deforming renal masses. Unchanged small scattered 0.2-0.5 cm cysts are seen. Some intrarenal atherosclerotic vascular calcifications are seen. No hydronephrosis, ureterectasis or ureteral calculi. Stomach and bowel: The non-contrast opacified stomach is not well distended with relative moderate gastric fold prominence. Underlying gastritis or other etiology cannot be excluded. Recommend correlation with clinical findings. Assessment is limited. The noncontrast opacified small bowel loops appear unremarkable. The noncontrast opacified loops of colon show moderate constipation. Some sigmoid colonic diverticula are seen, without CT evidence of diverticulitis. The lack of orally administered contrast material limits assessment. Appendix: Unchanged surgical clips are seen along the right lower paracolic gutter region, suggestive of prior appendectomy. Intraperitoneal space: No pneumoperitoneum. No abdominopelvic ascites.Some benign phleboliths seen in the pelvis. Vasculature: Severe atherosclerotic vascular calcifications are seen. There are calcifications at the origins of the mesenteric arteries with mild stenosis. There are calcifications at the origins of the renal arteries with moderate stenoses. Assessment is limited due to calcium barbour artifact. Lymph nodes: No enlarged lymph nodes. Urinary bladder: No bladder debris. No wall thickening. Reproductive: Unchanged mildly enlarged prostate is seen. Recommend correlation with clinical exam findings and PSA level assessment. Bones/joints: Postsurgical changes are seen status post right total hip arthroplasty. Severe left hip degenerative changes are seen. Severe degenerative disc disease changes with vacuum phenomenon are seen in the lower lumbar region. Degenerative disc disease changes with small discogenic calcifications and Schmorl's nodes are seen in the visualized lower thoracic region. Moderate bilateral sacroiliac joint and symphysis pubis degenerative changes are seen. Soft tissues: Diastasis of the rectus abdominus muscles is seen. Tiny umbilical hernia is seen, containing peritoneal fat. Unchanged mild soft tissue fat stranding around the supraumbilical rectus abdominus muscle. Interval decreased size of the complex multiloculated, rim enhancing fluid collections with thick wall in the periumbilical rectus abdominus region. The right collection measures approximately 2.8 x 1.9 x 1.8 cm (previously 3.2 x 2.9 x 2.3 cm). The left fluid collection measures approximately 2.9 x 1.5 x 1.8 cm (previously 4 x 2 x 2.5 cm) the previously noted supraumbilical anterior fluid collection has nearly resolved, now measuring 0.9 x 0.7 x 0.7 cm (previously 5.5 x 2.9 x 3.7 cm) CT/CT abdomen pelvis w con* [id number] IMPRESSION: 1. Interval decreased size of the complex multiloculated, rim enhancing fluid collections with thick wall in the periumbilical rectus abdominus region, as noted above. This is suggestive of improved infection/abscess. 2. Other chronic findings, as noted above.
--- NOTE | 2023-04-03 09:38 | ED_ITS ---
HPI - Abdominal Pain General: Chief Complaint: Skin/Abscess/Foreign Body Stated Complaint: abd pain Time Seen by Provider: 04/03/23 09:15 Source: patient Mode of arrival: ambulatory History of Present Illness: 72-year-old male presents emergency room with complaint of drainage from an abdominal wound. He previously had a abscess to follow-up along the trocar site from previous abdominal surgery. He has been seeing at wound care for this wound. There was concern today when he was seen and was draining more in the might have a perforated bowel. Patient reports been eating and drinking without difficulty normal bowel movements. No fever sweats or chills he has localized pain to the wound but no otherwise no abdominal pain MD elicited complaint: abdominal pain Pertinent past history: none Onset (ago): hour(s) Location: None Severity: moderate Quality: cramping Exacerbating factors: nothing Relieving factors: nothing Associated Symptoms: Denies anorexia, belching, bloating, chills, coffee ground emesis, constipation, GI cramping, diarrhea, dyspepsia, dysuria, fever(s), heartburn, hematochezia, hematuria, hematemesis, fecal incontinence, loose stools, melena, nausea, poor appetite and vomiting Review of Systems Const: Denies: fever(s), chills, fatigue or malaise Resp: Denies: dyspnea GI: Denies: abdominal pain, nausea, vomiting, hematemesis, coffee ground emesis, heartburn, diarrhea, constipation, bloating, GI cramping, belching, fecal incontinence, hematochezia or melena : Denies: dysuria or hematuria Skin/Breast: Denies: rash or pruritus PFSH ED PFSH: Medical History Amputated below knee Chronic low back pain Gout Hyperlipidemia Hypertension Tobacco use disorder Surgical History History of cholecystectomy History of incision and drainage History of right hip replacement Hx of foot surgery PLATE IN RT HEEL 2003 Hx of hand surgery CARPAL TUNNEL RIGHT HAND No pertinent past surgical history Family History Mother Cancer COLON CANCER Denies family history of Anesthesia complication Bleeding disorder Social History (Reviewed 04/03/23 @ 12:39 by JARVIS Wagoner Smoking and tobacco status: current every day smoker cigarettes Alcohol intake: current Alcohol intake frequency: holidays/special occasions only Substance/Drug Use: never Caregiver/support person: Yes Lives independently: Yes Physical Exam Const: GENERAL APPEARANCE: cooperative and comfortable ORIENTATION/CONSCIOUSNESS: Yes awake, Yes oriented to person, Yes oriented to place and Yes oriented to time HENMT: COMMON NORMALS: normocephalic, atraumatic and hearing grossly normal bilaterally HEAD & SCALP: normocephalic and atraumatic Resp: COMMON NORMALS: normal respiratory effort, No retractions, No use of accessory muscles and clear to auscultation bilaterally AUSCULTATION: clear to auscultation bilaterally Cardio: COMMON NORMALS: regular rate, regular rhythm and No murmurs present (Cardio) RATE: regular rate RHYTHM: regular rhythm GI: COMMON NORMALS: Soft to palpation and No hepatosplenomegaly present AUSCULTATION: Yes normoactive bowel sounds PALPATION: Yes Soft to palpation, No Tenderness to palpation present (GI), No Guarding due to palpation present (GI) and Yes No hepatosplenomegaly present Extremity: COMMON NORMALS: normal to inspection, capillary refill normal, no clubbing, cyanosis or edema, no calf tenderness and no pedal edema Neuro: SENSORIUM/ORIENTATION: Yes oriented to person, Yes oriented to place and Yes oriented to time Skin: COMMON NORMALS: no rashes or lesions noted GENERAL SKIN EXAM: no rashes or lesions noted Course Vital Signs: Vital signs: Vital Signs Temperature 98.3 F 04/03/23 09:24 Pulse Rate 58 L 04/03/23 10:14 Respiratory Rate 14 04/03/23 09:24 Blood Pressure 130/72 04/03/23 10:14 Pulse Oximetry 97 04/03/23 10:14 Oxygen Delivery Me thod Room Air 04/03/23 09:24 MDM - Abdominal Pain Medical Decision Making CT shows persistent but smaller abdominal wall abscess. We will start him on oral antibiotics continue the wound packings and wound care we will refer him back to surgery for further evaluation. Return if is to develop fever or change in symptoms Medical Records I reviewed the patient's medical records. Lab Data I reviewed the patient's lab results. 04/03/23 09:47 04/03/23 09:47 Labs/Radiology: Radiology Impressions Abdomen/Pelvis CT 04/03/23 09:37 IMPRESSION: 1. Interval decreased size of the complex multiloculated, rim enhancing fluid collections with thick wall in the periumbilical rectus abdominus region, as noted above. This is suggestive of improved infection/abscess. 2. Other chronic findings, as noted above. Laboratory Results WBC 12.9 10^3/uL (4.0-10.0) H 04/03/23 09:47 RBC 5.46 10^6/uL (4.1-5.3) H 04/03/23 09:47 Hgb 16.6 g/dL (11.7-16.6) 04/03/23 09:47 Hct 47.7 % (42.0-52.0) 04/03/23 09:47 MCV 87.4 fl (80-94) 04/03/23 09:47 MCH 30.4 pg (28.0-34.0) 04/03/23 09:47 MCHC 34.8 g/dL (30.0-36.0) 04/03/23 09:47 RDW 12.5 % (12.1-15.1) 04/03/23 09:47 Plt Count 281 10^3/cmm (130-400) 04/03/23 09:47 MPV 8.4 fL (7.4-10.4) 04/03/23 09:47 Neut % (Auto) 73.4 % 04/03/23 09:47 Lymph % (Auto) 16.3 % 04/03/23 09:47 [place] % (Auto) 7.0 % 04/03/23 09:47 Eos % (Auto) 2.6 % 04/03/23 09:47 Baso % (Auto) 0.5 % 04/03/23 09:47 Neut # (Auto) 9.47 10^3/uL (1.8-7.7) H 04/03/23 09:47 Lymph # (Auto) 2.1 10^3/uL (0.8-4.8) 04/03/23 09:47 Stephenson # (Auto) 0.9 10^3/uL (0.2-0.9) 04/03/23 09:47 Eos # (Auto) 0.3 10^3/uL (0.0-0.8) 04/03/23 09:47 Baso # (Auto) 0.1 10^3/uL (0.0-0.1) 04/03/23 09:47 Nucleated RBC % (auto) 0 % 04/03/23 09:47 Nucleated RBCs # 0.0 /100WBC 04/03/23 09:47 Sodium 134 mmol/L (136-145) L 04/03/23 09:47 Potassium 3.9 mmol/L (3.5-5.1) 04/03/23 09:47 Chloride 96 mmol/L (98-107) L 04/03/23 09:47 Carbon Dioxide 24 mmol/L (22-29) 04/03/23 09:47 Anion Gap 17.9 (5-19) 04/03/23 09:47 BUN 25 mg/dL (8-23) H 04/03/23 09:47 Creatinine 1.1 mg/dL (0.7-1.2) 04/03/23 09:47 GFR Calculation Not Reportable 04/03/23 09:47 Glucose 88 mg/dL (65-115) 04/03/23 09:47 Calculated Osmolality 282 mOsm/kg (285-295) L 04/03/23 09:47 Calcium 10.1 mg/dL (8.5-10.5) 04/03/23 09:47 Total Bilirubin 0.4 mg/dL (0.15-1.2) 04/03/23 09:47 AST 13 U/L (0-40) 04/03/23 09:47 ALT 15 U/L (0-41) 04/03/23 09:47 Alkaline Phosphatase 105 U/L (40-130) 04/03/23 09:47 Total Protein 7.5 g/dL (6.6-8.7) 04/03/23 09:47 Albumin 4.2 g/dL (3.5-5.2) 04/03/23 09:47 Globulin 3.3 g/dL (1.3-4.6) 04/03/23 09:47 Lipase 49 U/L (13-60) 04/03/23 09:47 Urine Color Yellow (Yellow) 04/03/23 11:05 Urine Appearance Clear (CLEAR) 04/03/23 11:05 Urine pH 6 (5-7) 04/03/23 11:05 Ur Specific [place] 1.010 (1.005-1.030) 04/03/23 11:05 Urine Protein Neg (Negative) 04/03/23 11:05 Urine Glucose (UA) Norm (Normal) 04/03/23 11:05 Urine Ketones Negative (Negative) 04/03/23 11:05 Urine Blood Neg (Negative) 04/03/23 11:05 Urine Nitrate Negative (Negative) 04/03/23 11:05 Urine Bilirubin Neg (Negative) 04/03/23 11:05 Urine Urobilinogen Neg mg/dL (Negative) 04/03/23 11:05 Ur Leukocyte Esterase Negative (Negative) 04/03/23 11:05 Discharge Plan Discharge Patient Disposition: Home Clinical Impression: Abdominal wall abscess at site of surgical wound Condition: Stable Prescriptions: New Bactrim DS 800-160 mg tablet 1 tab PO DAILY 10 Days Qty: 20 0RF No Action omeprazole 20 mg capsule,delayed release(DR/EC) 20 mg PO DAILY atorvastatin 20 mg tablet 20 mg PO QPM cyanocobalamin (vitamin B-12) 1,000 mcg tablet extended release 1,000 mcg PO DAILY [id number] mg capsule 1 cap PO BID cholecalciferol (vitamin D3) 25 mcg (1,000 unit) capsule 25 mcg PO DAILY multivitamin Tablet 1 tab PO DAILY ascorbic acid (vitamin C) 500 mg capsule 500 mg PO DAILY tadalafil [Cialis] 5 mg tablet 5 mg PO DAILY PRN (Reason: sexual activity) Qty: 30 11RF lisinopril-hydrochlorothiazide 20-25 mg tablet 1 tab PO DAILY Qty: 90 3RF Hold Instructions: Resume on 01/21/23. docusate sodium 100 mg Capsule 100 mg PO DAILY PRN (Reason: Constipation) Discharge Orders: Discharge ED (Routine); Ordered 04/03/23 Ordered By: Kip Hall Referrals: Patrice Huang MD [Primary Care Provider] - Discharge Diet: Usual diet Discharge Activity: Increase activity as tolerated Patient Instructions: Opioid Safety, Pain Management Activity Restrictions/Additional Instructions: You are seen today for drainage from abdominal wound. CT shows there is still a small abscess present. Start antibiotics 1 pill twice daily for 10 days Case management make arranges for follow-up with general surgery. Coding Level of Care Code ED Group Activities Aide for Eliecer Jain
[2023-04-03] MEDS: sodium chloride 0.9% 1,000 ML 999 ML IV (09:48)
[2023-04-03 10:03] LABS: Basophils # 0.1 10^3/uL (0.0-0.1); Basophils % 0.5 %; Eosinophils # 0.3 10^3/uL (0.0-0.8); Eosinophils % 2.6 %; Hematocrit 47.7 % (42.0-52.0); Hemoglobin 16.6 g/dL (11.7-16.6); Lymphocytes # 2.1 10^3/uL (0.8-4.8); Lymphocytes % 16.3 %; Mean Corpuscular HGB Conc 34.8 g/dL (30.0-36.0); Mean Corpuscular Hemoglobin 30.4 pg (28.0-34.0); Mean Corpuscular Volume 87.4 fl (80-94); Mean Platelet Volume 8.4 fL (7.4-10.4); Monocytes # 0.9 10^3/uL (0.2-0.9); Neutrophils # 9.47 10^3/uL (1.8-7.7); Neutrophils % 73.4 %; Nucleated Red Blood Cells % 0 %; Platelet Count 281 10^3/cmm (130-400); Red Blood Count 5.46 10^6/uL (4.1-5.3); Red Cell Distribution Width 12.5 % (12.1-15.1); White Blood Count 12.9 10^3/uL (4.0-10.0)
[2023-04-03 10:14] VITALS: BP 130/72; PULSE 58; O2SAT 97
[2023-04-03 10:20] LABS: Alanine Aminotransferase 15 U/L (0-41); Albumin Level 4.2 g/dL (3.5-5.2); Alkaline Phosphatase 105 U/L (40-130); Anion Gap 17.9 (5-19); Aspartate Amino Transferase 13 U/L (0-40); Blood Urea Nitrogen 25 mg/dL (8-23); Calcium 10.1 mg/dL (8.5-10.5); Carbon Dioxide 24 mmol/L (22-29); Chloride 96 mmol/L (98-107); Globulin 3.3 g/dL (1.3-4.6); Glucose 88 mg/dL (65-115); Lipase 49 U/L (13-60); Osmolality Calculated 282 mOsm/kg (285-295); Potassium 3.9 mmol/L (3.5-5.1); Sodium 134 mmol/L (136-145); Total Bilirubin 0.4 mg/dL (0.15-1.2); Total Protein 7.5 g/dL (6.6-8.7)
[2023-04-03] MEDS: iohexol 350 mg/mL 500 mL Btl (per mL) IV (10:50)
[2023-04-03 11:21] LABS: Add Urine Microscopic? NO; Charge for UA Resulting for Rev
[2023-04-03 11:24] LABS: Bilirubin Urine Neg (Negative); Blood Urine Neg (Negative); Glucose Urine UA Norm (Normal); Ketones Urine Negative (Negative); Leukocyte Esterase Urine Negative (Negative); Nitrate Urine Negative (Negative); Protein Urine Neg (Negative); Urine Appearance Clear (CLEAR); Urine Color Yellow (Yellow); Urobilinogen Urine Neg (Negative); pH Urine 6 (5-7)
--- NOTE | 2023-04-04 11:40 | DCPLANNER ---
Addendum entered by Tasha Pineda 04/15/23 14:35: Patient had a follow up appointment scheduled with general surgery - patient did attend appointment Addendum entered by Tasha Pineda 04/04/23 14:14: Patient has a follow up appointment scheduled for Saturday, April 08, 2023 at 9;[address] Simon at general surgery. Original Note: thoroughbred horse farm manager had message to schedule a follow up appointment for patient with general surgery. thoroughbred horse farm manager sent patients information to the front office staff at general surgery. Patients information will be printed and reviewed. Clinic will call patient with appointment information.
== END 2023-04-03 12:30 | disposition home or self-care (01) ==
PROVIDERS: Emergency Provider Family Medicine; PCP Family Medicine
DX: L02.211 Cutaneous abscess of abdominal wall (principal); T81.49XA Infection following a procedure, other surgical site, initial encounter; E78.5 Hyperlipidemia, unspecified; I10 Essential (primary) hypertension; F17.210 Nicotine dependence, cigarettes, uncomplicated; Y83.8 Other surgical procedures as the cause of abnormal reaction of the patient, or of later complication, without mention of misadventure at the time of the procedure
CPT/HCPCS: 11042; 36415; 74177; 80053; 81003; 83690; 85025; 87040; 96360; 99285; A6212; J7030; Q9967

== ENCOUNTER → 2023-04-08 08:46 | Outpatient (BNVA) | payer MEDICARE, SELFPAY | PROVIDERS: PCP Family Medicine; Visit Provider Surgery | DX: T81.49XA Infection following a procedure, other surgical site, initial encounter (principal); X58.XXXA Exposure to other specified factors, initial encounter | CPT/HCPCS: 99213 ==

== ENCOUNTER → 2023-04-10 08:22 | Outpatient (BNVA) | payer MEDICARE, SELFPAY | PROVIDERS: PCP Family Medicine; Visit Provider Nurse Practitioner Family | DX: T81.31XA Disruption of external operation (surgical) wound, not elsewhere classified, initial encounter (principal); Y83.8 Other surgical procedures as the cause of abnormal reaction of the patient, or of later complication, without mention of misadventure at the time of the procedure | CPT/HCPCS: 97597; A6212 ==

== ENCOUNTER → 2023-04-17 08:31 | Outpatient (BNVA) | payer MEDICARE, SELFPAY | PROVIDERS: PCP Family Medicine; Visit Provider Nurse Practitioner Family | DX: T81.31XD Disruption of external operation (surgical) wound, not elsewhere classified, subsequent encounter (principal); Y83.8 Other surgical procedures as the cause of abnormal reaction of the patient, or of later complication, without mention of misadventure at the time of the procedure | CPT/HCPCS: 11042; A6446 ==

== ENCOUNTER → 2023-04-24 08:24 | Outpatient (BNVA) | payer MEDICARE, SELFPAY | PROVIDERS: PCP Family Medicine; Visit Provider Nurse Practitioner Family | DX: T81.31XA Disruption of external operation (surgical) wound, not elsewhere classified, initial encounter (principal); Y83.8 Other surgical procedures as the cause of abnormal reaction of the patient, or of later complication, without mention of misadventure at the time of the procedure; I96 Gangrene, not elsewhere classified; L98.492 Non-pressure chronic ulcer of skin of other sites with fat layer exposed | CPT/HCPCS: 11042; A6212 ==

== ENCOUNTER → 2023-05-01 08:38 | Outpatient (BNVA) | payer MEDICARE, SELFPAY | PROVIDERS: PCP Family Medicine; Visit Provider Nurse Practitioner Family | DX: T81.31XD Disruption of external operation (surgical) wound, not elsewhere classified, subsequent encounter (principal); Y83.8 Other surgical procedures as the cause of abnormal reaction of the patient, or of later complication, without mention of misadventure at the time of the procedure | CPT/HCPCS: 11042; A6212 ==

== ENCOUNTER → 2023-05-08 08:45 | Outpatient (BNVA) | payer MEDICARE, SELFPAY | PROVIDERS: PCP Family Medicine; Visit Provider Nurse Practitioner Family | DX: T81.49XA Infection following a procedure, other surgical site, initial encounter (principal); Y83.8 Other surgical procedures as the cause of abnormal reaction of the patient, or of later complication, without mention of misadventure at the time of the procedure | CPT/HCPCS: 11042; 87070; 87077; 87186; A6446 ==

== ENCOUNTER 2023-05-13 15:16 | Outpatient (CLI) | payer MEDICARE, SELFPAY ==
[2023-05-13 16:36] LABS: Basophils # 0.1 10^3/uL (0.0-0.1); Basophils % 0.8 %; Eosinophils # 0.4 10^3/uL (0.0-0.8); Eosinophils % 3.8 %; Hematocrit 45.7 % (42.0-52.0); Hemoglobin 15.7 g/dL (11.7-16.6); Lymphocytes # 2.1 10^3/uL (0.8-4.8); Lymphocytes % 19.6 %; Mean Corpuscular HGB Conc 34.4 g/dL (30.0-36.0); Mean Corpuscular Hemoglobin 30.7 pg (28.0-34.0); Mean Corpuscular Volume 89.4 fl (80-94); Mean Platelet Volume 8.7 fL (7.4-10.4); Monocytes # 0.9 10^3/uL (0.2-0.9); Monocytes % 8.1 %; Neutrophils # 7.18 10^3/uL (1.8-7.7); Neutrophils % 67.3 %; Nucleated Red Blood Cells % 0 %; Platelet Count 268 10^3/cmm (130-400); Red Blood Count 5.11 10^6/uL (4.1-5.3); Red Cell Distribution Width 13.2 % (12.1-15.1); White Blood Count 10.7 10^3/uL (4.0-10.0)
[2023-05-13 19:15] LABS: Alanine Aminotransferase 19 U/L (0-41); Albumin Level 3.8 g/dL (3.5-5.2); Alkaline Phosphatase 86 U/L (40-130); Blood Urea Nitrogen 20 mg/dL (8-23); Calcium 9.4 mg/dL (8.5-10.5); Chloride 99 mmol/L (98-107); Globulin 3.3 g/dL (1.3-4.6); Glucose 66 mg/dL (65-115); Total Bilirubin 0.3 mg/dL (0.15-1.2); Total Protein 7.1 g/dL (6.6-8.7)
[2023-05-13 20:16] LABS: Osmolality Calculated 275 mOsm/kg (285-295); Sodium 132 mmol/L (136-145)
[2023-05-13 20:22] LABS: Carbon Dioxide 12 mmol/L (22-29)
[2023-05-13 20:23] LABS: Aspartate Amino Transferase 20 U/L (0-40)
== END 2023-05-13 15:17 | disposition home or self-care (01) ==
LOC: LAB 15:20
PROVIDERS: PCP Family Medicine; Visit Provider Nurse Practitioner Family
DX: T81.49XA Infection following a procedure, other surgical site, initial encounter (principal); L02.211 Cutaneous abscess of abdominal wall; Y83.9 Surgical procedure, unspecified as the cause of abnormal reaction of the patient, or of later complication, without mention of misadventure at the time of the procedure
CPT/HCPCS: 36415; 80053; 85025

== ENCOUNTER → 2023-05-15 08:41 | Outpatient (BNVA) | payer MEDICARE, SELFPAY | PROVIDERS: PCP Family Medicine; Visit Provider Nurse Practitioner Family | DX: T81.31XD Disruption of external operation (surgical) wound, not elsewhere classified, subsequent encounter (principal); Y83.8 Other surgical procedures as the cause of abnormal reaction of the patient, or of later complication, without mention of misadventure at the time of the procedure; I96 Gangrene, not elsewhere classified | CPT/HCPCS: 97597; A6212; A6446 ==

== ENCOUNTER 2023-05-17 15:39 | Outpatient (CLI) | payer MEDICARE, SELFPAY ==
[2023-05-17 17:27] LABS: Alanine Aminotransferase 22 U/L (0-41); Albumin Level 4.1 g/dL (3.5-5.2); Alkaline Phosphatase 90 U/L (40-130); Anion Gap 20.1 (5-19); Aspartate Amino Transferase 18 U/L (0-40); Blood Urea Nitrogen 21 mg/dL (8-23); Calcium 10.1 mg/dL (8.5-10.5); Carbon Dioxide 18 mmol/L (22-29); Chloride 98 mmol/L (98-107); Globulin 3.2 g/dL (1.3-4.6); Glucose 113 mg/dL (65-115); Osmolality Calculated 278 mOsm/kg (285-295); Potassium 4.1 mmol/L (3.5-5.1); Sodium 132 mmol/L (136-145); Total Bilirubin 0.3 mg/dL (0.15-1.2); Total Protein 7.3 g/dL (6.6-8.7)
== END 2023-05-17 15:40 | disposition home or self-care (01) ==
PROVIDERS: Nurse Practitioner Family; PCP Family Medicine
DX: T81.49XA Infection following a procedure, other surgical site, initial encounter (principal); L02.211 Cutaneous abscess of abdominal wall; Y83.9 Surgical procedure, unspecified as the cause of abnormal reaction of the patient, or of later complication, without mention of misadventure at the time of the procedure
CPT/HCPCS: 36415; 80053

== ENCOUNTER 2023-05-21 15:04 | Outpatient (CLI) | payer MEDICARE, SELFPAY ==
[2023-05-21 15:58] LABS: Alanine Aminotransferase 18 U/L (0-41); Alkaline Phosphatase 91 U/L (40-130); Aspartate Amino Transferase 15 U/L (0-40); Blood Urea Nitrogen 25 mg/dL (8-23); Carbon Dioxide 22 mmol/L (22-29); Chloride 99 mmol/L (98-107); Globulin 3.1 g/dL (1.3-4.6); Glucose 165 mg/dL (65-115); Osmolality Calculated 288 mOsm/kg (285-295); Sodium 135 mmol/L (136-145); Total Bilirubin 0.6 mg/dL (0.15-1.2); Total Protein 7.1 g/dL (6.6-8.7)
== END 2023-05-21 15:05 | disposition home or self-care (01) ==
LOC: LAB 15:06
PROVIDERS: PCP Family Medicine; Visit Provider Nurse Practitioner Family
DX: N17.9 Acute kidney failure, unspecified (principal)
CPT/HCPCS: 36415; 80053

== ENCOUNTER → 2023-05-22 07:52 | Outpatient (BNVA) | payer MEDICARE, SELFPAY | PROVIDERS: PCP Family Medicine; Visit Provider Nurse Practitioner Family | DX: T81.31XD Disruption of external operation (surgical) wound, not elsewhere classified, subsequent encounter (principal); Y83.8 Other surgical procedures as the cause of abnormal reaction of the patient, or of later complication, without mention of misadventure at the time of the procedure; I96 Gangrene, not elsewhere classified | CPT/HCPCS: 11042; 87070; A6446 ==

== ENCOUNTER → 2023-05-29 07:59 | Outpatient (BNVA) | payer MEDICARE, SELFPAY | PROVIDERS: PCP Family Medicine; Visit Provider Nurse Practitioner Family | DX: T81.31XD Disruption of external operation (surgical) wound, not elsewhere classified, subsequent encounter (principal); Y83.8 Other surgical procedures as the cause of abnormal reaction of the patient, or of later complication, without mention of misadventure at the time of the procedure | CPT/HCPCS: 11042; A6212; A6446 ==

== ENCOUNTER → 2023-06-05 08:29 | Outpatient (BNVA) | payer MEDICARE, SELFPAY | PROVIDERS: PCP Family Medicine; Visit Provider Nurse Practitioner Family | DX: T81.31XD Disruption of external operation (surgical) wound, not elsewhere classified, subsequent encounter (principal); Y83.8 Other surgical procedures as the cause of abnormal reaction of the patient, or of later complication, without mention of misadventure at the time of the procedure | CPT/HCPCS: 11042 ==

== ENCOUNTER → 2023-06-10 13:36 | Outpatient (BNVA) | payer MEDICARE, SELFPAY | PROVIDERS: PCP Family Medicine; Visit Provider Surgery | DX: T81.49XA Infection following a procedure, other surgical site, initial encounter (principal); Y83.8 Other surgical procedures as the cause of abnormal reaction of the patient, or of later complication, without mention of misadventure at the time of the procedure; N28.9 Disorder of kidney and ureter, unspecified | CPT/HCPCS: 36415; 82565; 99203 ==

== ENCOUNTER → 2023-06-12 09:23 | Outpatient (BNVA) | payer MEDICARE, SELFPAY | PROVIDERS: PCP Family Medicine; Visit Provider Nurse Practitioner Family | DX: T81.31XD Disruption of external operation (surgical) wound, not elsewhere classified, subsequent encounter (principal); Y83.8 Other surgical procedures as the cause of abnormal reaction of the patient, or of later complication, without mention of misadventure at the time of the procedure | CPT/HCPCS: 11042 ==

== ENCOUNTER → 2023-06-17 08:09 | Outpatient (BNVA) | payer MEDICARE, SELFPAY | PROVIDERS: PCP Family Medicine; Visit Provider Family Medicine | DX: M10.9 Gout, unspecified (principal); E87.1 Hypo-osmolality and hyponatremia; N17.9 Acute kidney failure, unspecified; I10 Essential (primary) hypertension; T81.49XA Infection following a procedure, other surgical site, initial encounter; Y83.8 Other surgical procedures as the cause of abnormal reaction of the patient, or of later complication, without mention of misadventure at the time of the procedure | CPT/HCPCS: 84550; 85025; 86140 ==

== ENCOUNTER 2023-06-18 09:10 | Outpatient (CLI) | payer MEDICARE, SELFPAY ==
--- NOTE | 2023-06-18 09:30 | CTR_ITS ---
PROCEDURE INFORMATION: Exam: CT Abdomen With Contrast Exam date and time: 06/18/2023 9:55 AM Age: 72 years old Clinical indication: Prior surgery; Surgery date: 6+ months; Surgery type: Non healing surgical site, possible abscess since surgery in jan; Additional info: Non healing surgical site, possible abscess, iv contrast TECHNIQUE: Imaging protocol: Computed tomography of the abdomen with contrast. Radiation optimization: All CT scans at this facility use at least one of these dose optimization techniques: automated exposure control; mA and/or kV adjustment per patient size (includes targeted exams where dose is matched to clinical indication); or iterative reconstruction. Contrast material: OMNI 350; Contrast volume: 95 ml; Contrast route: INTRAVENOUS (IV); REPORTING DATA: Count of CT and Cardiac NM exams in prior 12 months: This patient has received 2 known CTs and 0 known cardiac nuclear medicine studies in the 12 months prior to the current study. COMPARISON: CT abdomen pelvis w con* [id number] 04/03/2023 10:37 AM COMPARISON MORE: CT abdomen pelvis w con* [id number] 02/02/2022 2:57 AM RADIATION DOSE METRICS: Total DLP (mGy-cm): 455.15 FINDINGS: Lungs: Stable 4 mm solid nodule in the lateral basal segment of the right lower lobe (axial series 4, image 9), unchanged from 202; no follow-up necessary. Stable 3 mm solid nodule in the posterior basal segment of the left lower lobe (axial series 4, image 5), unchanged from 2022; no follow-up necessary.. Heart: The visualized heart is within normal limits for size. There is no evidence of pericardial abnormality. Liver: The liver is normal in size and contour. Gallbladder and bile ducts: The gallbladder is surgically absent. Pancreas: The pancreas appears normal. Spleen: The spleen appears normal. Adrenal glands: Normal. No mass. Kidneys and ureters: Large calcification again noted in the upper pole the right kidney similar to prior exam. Trace symmetric bilateral perinephric fat stranding similar to prior exam. No hydronephrosis or signs of urinary obstruction. Stomach and bowel: The stomach is appropriately distended and without wall abnormalities. The visualized small and large bowel loops are unremarkable. Intraperitoneal space: No abominal ascites. No significant abdominal fluid collection. Vasculature: The abdominal aorta is nonaneurysmal. The IVC appears normal. Lymph nodes: Unremarkable. No enlarged abdominal lymph nodes. Bones/joints: Multilevel degenerative changes in the spine. Soft tissues: Marginated fluid collection, measuring 4.8 x 2.0 x 1.1 cm, in the left anterior abdomen deep to the abdominus rectus musculature (axial series 4, image 30) stable to slightly decreased in size compared to prior exam. Additional adjacent marginated phlegmonous/fluid collection, measuring approximately 4.3 x 1.5 x 1.3 cm, in the right anterior abdomen deep to the abdominus rectus musculature, slightly decreased in size compared to prior exam with overall decreased fluid (axial series 4, image 36). CT/CT abdomen w con* [id number] IMPRESSION: Persistent fluid collections deep to the abdominus rectus musculature, stable to slightly decreased in size on the left and decreased in size on the right compared to prior exam. Findings could be consistent with postoperative seromas versus chronic abscesses.
[2023-06-18] MEDS: iohexol 350 mg/mL 500 mL Btl (per mL) IV (10:01)
== END 2023-06-18 09:11 | disposition home or self-care (01) ==
PROVIDERS: PCP Family Medicine; Visit Provider Surgery
DX: T81.49XA Infection following a procedure, other surgical site, initial encounter (principal); Y83.8 Other surgical procedures as the cause of abnormal reaction of the patient, or of later complication, without mention of misadventure at the time of the procedure
CPT/HCPCS: 74160; Q9967

== ENCOUNTER → 2023-06-19 07:49 | Outpatient (BNVA) | payer MEDICARE, SELFPAY | PROVIDERS: PCP Family Medicine; Visit Provider Nurse Practitioner Family | DX: T81.31XD Disruption of external operation (surgical) wound, not elsewhere classified, subsequent encounter (principal); Y83.8 Other surgical procedures as the cause of abnormal reaction of the patient, or of later complication, without mention of misadventure at the time of the procedure; I96 Gangrene, not elsewhere classified | CPT/HCPCS: 97597; A6212 ==

== ENCOUNTER → 2023-06-24 10:45 | Outpatient (BNVA) | payer MEDICARE, SELFPAY | PROVIDERS: PCP Family Medicine; Visit Provider Surgery | DX: T81.49XA Infection following a procedure, other surgical site, initial encounter (principal); X58.XXXA Exposure to other specified factors, initial encounter | CPT/HCPCS: 99213 ==

== ENCOUNTER → 2023-06-26 08:03 | Outpatient (BNVA) | payer MEDICARE, SELFPAY | PROVIDERS: PCP Family Medicine; Visit Provider Nurse Practitioner Family | DX: T81.31XD Disruption of external operation (surgical) wound, not elsewhere classified, subsequent encounter (principal); Y83.8 Other surgical procedures as the cause of abnormal reaction of the patient, or of later complication, without mention of misadventure at the time of the procedure | CPT/HCPCS: 11042; A6212 ==

== ENCOUNTER → 2023-07-03 08:11 | Outpatient (BNVA) | payer MEDICARE, SELFPAY | PROVIDERS: PCP Family Medicine; Visit Provider Nurse Practitioner Family | DX: T81.31XD Disruption of external operation (surgical) wound, not elsewhere classified, subsequent encounter (principal); Y83.8 Other surgical procedures as the cause of abnormal reaction of the patient, or of later complication, without mention of misadventure at the time of the procedure | CPT/HCPCS: 11042; A6212 ==

== ENCOUNTER 2023-07-07 11:09 | Day surgery (SDC) | payer MEDICARE, SELFPAY ==
[2023-07-04 13:23] VITALS: BMI 32.0
[2023-07-07] VITALS (9 sets, daily range): BP systolic 98–152; BP diastolic 51–78; PULSE 68–76; RESP 16–18; TEMP 36.1–36.5; O2SAT 93–97
--- NOTE | 2023-07-07 11:47 | W.PM.OPSUD ---
Surgery/Procedure H&P Update DATE OF PROCEDURE: July 07, 2023 DATE H&P PERFORMED: 06/24/23 H&P UPDATE INFORMATION: I have reviewed H&P completed within last 30 days, I have examined patient prior to procedure and No changes to prior documentation PLANNED PROCEDURE: Operation Date: 07/07/23 12:50 Pro[place] Procedures p [id number] incision and drainage abdomen wall T81.49XA(Not Applicable) - Partha Simon, DO
[2023-07-07] MEDS: sodium chloride 0.9% 1,000 ML 30 ML IV (11:52)
[2023-07-07] MEDS: ceFAZolin 2,000 MG in sodium chloride 0.9% (plus) 50 ML 100 MG IV (12:04)
--- NOTE | 2023-07-07 12:04 | ANES.PREANE2 ---
Pre-Anesthetic Assessment Height/Weight: Height 1.78 m Weight 101.151 kg Temp Pulse Resp BP Pulse Ox O2 Del Method 97.7 F 74 18 152/78 94 Room Air 07/07/23 11:37 07/07/23 11:37 07/07/23 11:37 07/07/23 11:37 07/07/23 11:37 07/07/23 11:41 Operation Date: 07/07/23 12:50 Proposed Procedures p [id number] incision and drainage abdomen wall T81.49XA(Not Applicable) - Partha Simon DO Familial anesthetic complications: None Was Beta Jeffery taken within 24 hours: N/A Was Clonidine taken within 24 hours: N/A Last intake: Intake Last Liquid Date 07/06/23 Last Liquid Time 23:00 Last Solid Date 07/06/23 Last Solid Time 20:00 Social Tobacco and No alcohol Exam alert, oriented x 3, clear to auscultation bilaterally and regular rate & rhythm Airway Mallampati: Class II Dentition: full CV/HEM Hypertension Metabolic Hyperlipidemia Anesthetic Plan ASA status: 2 Anesthesia: General Risk of > 500 ml blood loss (7ml/kg in children): No Medications/Allergies Home Medications Medication Instructions Recorded Confirmed Last Taken Type ascorbic acid (vitamin C) 500 mg 500 mg PO DAILY 09/06/20 07/04/23 07/06/23 History capsule cholecalciferol (vitamin D3) 25 25 mcg PO DAILY 09/06/20 07/04/23 07/06/23 History mcg (1,000 unit) capsule cyanocobalamin (vitamin B-12) 1,000 mcg PO DAILY 09/06/20 07/04/23 07/06/23 History 1,000 mcg tablet,extended release krill 500 mg-omega-3 110 mg-dha 28 1 cap PO BID 09/06/20 07/04/23 07/03/23 History mg-epa 60 [id number] capsule multivitamin 1 tab PO DAILY 09/06/20 07/04/23 07/03/23 History omeprazole 20 mg capsule,delayed 20 mg PO DAILY 09/06/20 07/04/23 07/06/23 History release lisinopril 20 1 tab PO DAILY #90 tabs 07/30/22 07/04/23 07/06/23 Rx mg-hydrochlorothiazide 25 mg tablet docusate sodium 100 mg capsule 100 mg PO DAILY PRN Constipation 01/05/23 07/04/23 04/02/23 History tadalafil 5 mg tablet (Cialis) 5 mg PO DAILY PRN sexual activity 01/14/23 07/04/23 Unknown Rx #30 tabs atorvastatin 20 mg tablet 20 mg PO QPM #90 tabs 04/09/23 07/04/23 07/06/23 Rx allopurinol 100 mg tablet 100 mg PO DAILY #30 tabs 06/24/23 07/04/23 07/06/23 Rx Allergies Allergy/AdvReac Type Severity Reaction Status Date / Time vancomycin AdvReac BP DROPPED Verified 06/24/23 11:49 Current Medications Generic Name Dose Route Start Last Admin Trade Name Freq PRN Reason Stop Dose Admin Sodium Chloride 1,000 mls @ 30 mls/hr 07/07/23 11:30 07/07/23 11:52 Sodium Chloride 0.9% IV 07/08/23 11:29 30 mls/hr .Q24H INDIRA Administration PFSH Anesthesia Medical History Amputated below knee Chronic low back pain Gout Hyperlipidemia Hypertension Tobacco use disorder Surgical History History of cholecystectomy History of incision and drainage History of right hip replacement Hx of foot surgery PLATE IN RT HEEL 2003 Hx of hand surgery CARPAL TUNNEL RIGHT HAND No pertinent past surgical history Family History Mother Cancer COLON CANCER Denies family history of Anesthesia complication Bleeding disorder Social History Smoking and tobacco status: current every day smoker cigarettes Alcohol intake: current Alcohol intake frequency: holidays/special occasions only Substance/Drug Use: never Caregiver/support person: Yes Lives independently: Yes Data Anesthesia Cardiac Studies: Echocardiogram 02/02/22
--- NOTE | 2023-07-07 12:48 | SUR.OPER ---
1230 dr smith inj 10ml below xphoid process
--- NOTE | 2023-07-07 14:04 | ANE.PACU2 ---
Inpatient post-anesthesia follow up: Airway intact: Yes Vital signs: Temperature 97.1 F Pulse Rate 70 Respiratory Rate 17 Blood Pressure 110/60 Pulse Oximetry 93 Oxygen Delivery Me thod Room Air Oxygen Flow Rate 6 Fraction of Inspir ed Oxygen Hydration adequate: Yes Nausea and vomiting: Yes Pain level: 1 Mental status: Baseline
--- NOTE | 2023-07-07 16:23 | PM.OP ---
Operative Report Date of procedure: July 07, 2023 Pre-op diagnosis: Chronic abdominal wall abscess Post-op diagnosis: same Procedure done: Incision and drainage of chronic abdominal wall abscess Implants: Half-inch iodoform Surgeon: Dr. Partha Simon DO Anesthesia: General Estimated blood loss (mL): 5 Complications: None apparent Brief History: This a very pleasant 72-year-old gentleman who had a large abdominal wall abscess that was incised and drained by another surgeon several months ago. This is turned into a chronic draining wound. CT of the abdomen revealed additional abscesses on either side of the linea alba cephalad to the wound. Incision and drainage was indicated. The risk and benefits were explained and documented. Procedure: Patient was wheeled in operative room placed on the OR table in supine position. General tracheal intubation was achieved by department anesthesia. The abdomen was inspected prepped and draped in usual sterile fashion. A timeout was performed. All present were in agreement. 2% lidocaine with epinephrine was then used 2 anesthetize 2 areas on either side of the most cephalad rectus abdominis bilaterally. A 15 blade scalpel was used to make a 2 cm incision on both sides. Hemostats were then used to somewhat aggressively debride all subcutaneous tissue tracking down to the 2 chronic wounds inferiorly. Purulence was expelled. Wounds were irrigated with normal saline. Half-inch iodoform packing gauze was then placed in the wound. Sterile dressing applied. Patient tolerated procedure well
== END 2023-07-07 14:25 | disposition home or self-care (01) ==
PROVIDERS: PCP Family Medicine; Visit Provider Surgery
PROC: (CPT 10060; principal; 2023-07-07 12:40)
DX: L02.211 Cutaneous abscess of abdominal wall (principal); I10 Essential (primary) hypertension; E78.5 Hyperlipidemia, unspecified; F17.210 Nicotine dependence, cigarettes, uncomplicated; Z79.899 Other long term (current) drug therapy
CPT/HCPCS: 10060; 87070; 87075; 87077; 87186; 87205; J0330; J0690; J1100; J2405; J2704; J3010; J3490; J7030

== ENCOUNTER → 2023-07-10 08:07 | Outpatient (BNVA) | payer MEDICARE, SELFPAY | PROVIDERS: PCP Family Medicine; Visit Provider Thoracic Surgery (Cardiothoracic Vascular Surgery) | DX: Y83.8 Other surgical procedures as the cause of abnormal reaction of the patient, or of later complication, without mention of misadventure at the time of the procedure; I96 Gangrene, not elsewhere classified; T81.31XD Disruption of external operation (surgical) wound, not elsewhere classified, subsequent encounter | CPT/HCPCS: 11042; 87070; 97597; A6446 ==

== ENCOUNTER → 2023-07-17 08:31 | Outpatient (BNVA) | payer MEDICARE, SELFPAY | PROVIDERS: PCP Family Medicine; Visit Provider Nurse Practitioner Family | DX: T81.31XD Disruption of external operation (surgical) wound, not elsewhere classified, subsequent encounter (principal); Y83.8 Other surgical procedures as the cause of abnormal reaction of the patient, or of later complication, without mention of misadventure at the time of the procedure; I96 Gangrene, not elsewhere classified | CPT/HCPCS: 11042; 97597 ==

== ENCOUNTER → 2023-07-22 10:15 | Outpatient (BNVA) | payer MEDICARE, SELFPAY | PROVIDERS: PCP Family Medicine; Visit Provider Surgery | DX: T81.49XA Infection following a procedure, other surgical site, initial encounter (principal); K43.2 Incisional hernia without obstruction or gangrene; X58.XXXA Exposure to other specified factors, initial encounter | CPT/HCPCS: 99213 ==

== ENCOUNTER → 2023-07-24 08:17 | Outpatient (BNVA) | payer MEDICARE, SELFPAY | PROVIDERS: PCP Family Medicine; Visit Provider Nurse Practitioner Family | DX: T81.31XD Disruption of external operation (surgical) wound, not elsewhere classified, subsequent encounter (principal); Y83.8 Other surgical procedures as the cause of abnormal reaction of the patient, or of later complication, without mention of misadventure at the time of the procedure; I96 Gangrene, not elsewhere classified | CPT/HCPCS: 11042; A6212 ×2 ==

== ENCOUNTER → 2023-07-31 07:51 | Outpatient (BNVA) | payer MEDICARE, SELFPAY | PROVIDERS: PCP Family Medicine; Visit Provider Nurse Practitioner Family | DX: I96 Gangrene, not elsewhere classified (principal); T81.31XD Disruption of external operation (surgical) wound, not elsewhere classified, subsequent encounter; Y83.8 Other surgical procedures as the cause of abnormal reaction of the patient, or of later complication, without mention of misadventure at the time of the procedure | CPT/HCPCS: 97597; A6212 ==

== ENCOUNTER → 2023-08-14 07:52 | Outpatient (BNVA) | payer MEDICARE, SELFPAY | PROVIDERS: PCP Family Medicine; Visit Provider Nurse Practitioner Family | DX: I96 Gangrene, not elsewhere classified (principal); T81.31XD Disruption of external operation (surgical) wound, not elsewhere classified, subsequent encounter; Y83.8 Other surgical procedures as the cause of abnormal reaction of the patient, or of later complication, without mention of misadventure at the time of the procedure | CPT/HCPCS: 11042; 87070 ==

== ENCOUNTER → 2023-08-21 07:52 | Outpatient (BNVA) | payer MEDICARE, SELFPAY | PROVIDERS: PCP Family Medicine; Visit Provider Nurse Practitioner Family | DX: I96 Gangrene, not elsewhere classified (principal); T81.31XD Disruption of external operation (surgical) wound, not elsewhere classified, subsequent encounter; Y83.8 Other surgical procedures as the cause of abnormal reaction of the patient, or of later complication, without mention of misadventure at the time of the procedure | CPT/HCPCS: 97597; A6212 ==

== ENCOUNTER → 2023-08-28 07:54 | Outpatient (BNVA) | payer MEDICARE, SELFPAY | PROVIDERS: PCP Family Medicine; Visit Provider Nurse Practitioner Family | DX: T81.31XD Disruption of external operation (surgical) wound, not elsewhere classified, subsequent encounter (principal); Y83.8 Other surgical procedures as the cause of abnormal reaction of the patient, or of later complication, without mention of misadventure at the time of the procedure | CPT/HCPCS: 11042 ==

== ENCOUNTER → 2023-09-02 09:01 | Outpatient (BNVA) | payer MEDICARE, SELFPAY | PROVIDERS: PCP Family Medicine; Visit Provider Surgery | DX: T81.49XA Infection following a procedure, other surgical site, initial encounter (principal); K43.2 Incisional hernia without obstruction or gangrene; X58.XXXA Exposure to other specified factors, initial encounter | CPT/HCPCS: 99213 ==

== ENCOUNTER → 2023-09-04 07:53 | Outpatient (BNVA) | payer MEDICARE, SELFPAY | PROVIDERS: PCP Family Medicine; Visit Provider Nurse Practitioner Family | DX: T81.31XD Disruption of external operation (surgical) wound, not elsewhere classified, subsequent encounter (principal); Y83.8 Other surgical procedures as the cause of abnormal reaction of the patient, or of later complication, without mention of misadventure at the time of the procedure | CPT/HCPCS: 11042; A6212 ==

== ENCOUNTER → 2023-09-11 08:07 | Outpatient (BNVA) | payer MEDICARE, SELFPAY | PROVIDERS: PCP Family Medicine; Visit Provider Nurse Practitioner Family | DX: T81.31XD Disruption of external operation (surgical) wound, not elsewhere classified, subsequent encounter (principal); Y83.8 Other surgical procedures as the cause of abnormal reaction of the patient, or of later complication, without mention of misadventure at the time of the procedure | CPT/HCPCS: 11042 ==

== ENCOUNTER → 2023-09-18 08:16 | Outpatient (BNVA) | payer MEDICARE, SELFPAY | PROVIDERS: PCP Family Medicine; Visit Provider Nurse Practitioner Family | DX: T81.31XD Disruption of external operation (surgical) wound, not elsewhere classified, subsequent encounter (principal); Y83.8 Other surgical procedures as the cause of abnormal reaction of the patient, or of later complication, without mention of misadventure at the time of the procedure | CPT/HCPCS: 11042 ==

== ENCOUNTER → 2023-09-25 07:58 | Outpatient (BNVA) | payer MEDICARE, SELFPAY | PROVIDERS: PCP Family Medicine; Visit Provider Nurse Practitioner Family | DX: T81.31XD Disruption of external operation (surgical) wound, not elsewhere classified, subsequent encounter (principal); Y83.8 Other surgical procedures as the cause of abnormal reaction of the patient, or of later complication, without mention of misadventure at the time of the procedure; Z09 Encounter for follow-up examination after completed treatment for conditions other than malignant neoplasm | CPT/HCPCS: 11042; A6219 ==

== ENCOUNTER → 2023-10-02 07:59 | Outpatient (BNVA) | payer MEDICARE, SELFPAY | PROVIDERS: PCP Family Medicine; Visit Provider Nurse Practitioner Family | DX: T81.31XD Disruption of external operation (surgical) wound, not elsewhere classified, subsequent encounter (principal); Y83.8 Other surgical procedures as the cause of abnormal reaction of the patient, or of later complication, without mention of misadventure at the time of the procedure | CPT/HCPCS: 11042 ==

== ENCOUNTER → 2023-10-09 08:44 | Outpatient (BNVA) | payer MEDICARE, SELFPAY | PROVIDERS: PCP Family Medicine; Visit Provider Student in an Organized Health Care Education/Training Program | DX: T81.49XA Infection following a procedure, other surgical site, initial encounter (principal); I10 Essential (primary) hypertension; K43.2 Incisional hernia without obstruction or gangrene; X58.XXXA Exposure to other specified factors, initial encounter | CPT/HCPCS: 80053; 84550; 85025; 86140; 87015; 87070; 87075; 87077; 87116; 87205; 87206; 87801; 99205 ==

== ENCOUNTER 2023-10-14 14:55 | Outpatient (CLI) | payer MEDICARE, SELFPAY ==
[2023-10-14] MEDS: iohexol 350 mg/mL 500 mL Btl (per mL) PO (15:10)
[2023-10-14] MEDS: iohexol 350 mg/mL 500 mL Btl (per mL) IV (15:56)
--- NOTE | 2023-10-14 16:00 | CT_ITS ---
WS: [id number] CT ABDOMEN AND PELVIS WITH CONTRAST HISTORY: follow up abdominal abscess, assess fistula TECHNIQUE: Imaging performed of the abdomen and pelvis with IV contrast. Single phase imaging of the abdomen. Coronal and sagittal reformats are submitted. All CT scans at [facility] use at [place] [facility] one of these dose optimization techniques: automated exposure control; mA and/or kV adjustment per patient size (includes targeted exams where dose is matched to clinical indication); or iterative re construction. IV CONTRAST: Omnipaque 350; 100 mL IV. Oral contrast: Yes. DLP: 717.09 mGy.cm COMPARISON: 06/18/2023, 04/03/2022 and 01/05/2023 Lower thorax: Lung bases are clear. Heart is normal size. No hiatal hernia. Liver/biliary system: Liver is slightly enlarged. Normal portal vein. No mass. Gallbladder: Prior cholecystectomy. Pancreas: Normal size pancreas and pancreatic duct. No adjacent inflammation. Spleen: Normal size spleen. No mass or infarct. Adrenal glands: Normal. Right kidney: Normal size kidney. 10 mm calcification in the upper pole with adjacent cortical thinni ng and scarring. There are a few additional areas of decreased attenuation within the kidney which ar e too small to characterize. Left kidney: Mild perinephric stranding. LEFT kidney is larger than the RIGHT. No obstruction. Aorta: Mild atherosclerosis with no aneurysm. Lymphadenopathy: Small retroperitoneal lymph nodes. No adenopathy. Free fluid: No free fluid in the pelvis. GI tract: Stomach is well distended with oral contrast. No small bowel obstruction. There is no fistu lous communication of the small bowel with the anterior abdominal wall. Prior cholecystectomy. Tortuo us colon. No obstruction. Abdominal wall: Ventral abdominal wall with diastases of the midline rectus muscles. Beginning just s uperior to the rectus muscle diastases is a fluid collection within the rectus muscles. This fluid co llection superiorly extends from the the LEFT rectus muscle across the midline to the RIGHT. Collecti on measures at least 10.2 cm in length by 2.2 cm in diameter. There is a central fluid collection wit h mild wall enhancement. This is at the site of the trocar insertion for the cholecystectomy. There i s a very tiny soft tissue tract extending from the liver capsule to this collection which could be a fistulous tract to Maki's capsule. This rectus collection has been present for several prior exami nations. Increased in size since 06/18/2023. There is an additional smaller collection with a maximum diameter of 2.3 cm more superiorly on the LEFT. Pelvis: No free fluid or adenopathy within the pelvis. Bones: Degenerative changes. Prior RIGHT hip arthroplasty. Advanced arthritis LEFT hip. IMPRESSION: 1. No fistulous communication identified but the small bowel and abdominal wall fluid collection. 2. Increase in size of the fluid collection in the rectus muscle of the abdominal wall extending LEF T to RIGHT in an oblique manner. There is a very tiny track extending to Maki's capsule of the LEF T lobe of the liver possible fistulous collection to the liver should be considered. This chronic abd ominal wall collection has increased in size and has been noted on the prior several CTs dating back to 01/05/2023. HIDA scan evaluation with delayed imaging may be helpful. If this is very small bile ok k may not be evident by HIDA scan. 3. Abdominal wall collection measures 10.2 x 2.2 cm. There is a smaller collection with a maximum di ameter of 2.3 cm more superiorly on the LEFT. 4. Prior cholecystectomy. Notified Cassie Granda MD at 10/15/2023 10:25 AM.
== END 2023-10-14 14:56 | disposition home or self-care (01) ==
LOC: RAD 14:56
PROVIDERS: PCP Family Medicine; Visit Provider Student in an Organized Health Care Education/Training Program
DX: T81.49XA Infection following a procedure, other surgical site, initial encounter (principal); L02.211 Cutaneous abscess of abdominal wall; Y83.8 Other surgical procedures as the cause of abnormal reaction of the patient, or of later complication, without mention of misadventure at the time of the procedure; K43.2 Incisional hernia without obstruction or gangrene; Z90.49 Acquired absence of other specified parts of digestive tract; Z72.0 Tobacco use
CPT/HCPCS: 74177; 99214; Q9967

== ENCOUNTER → 2023-10-16 07:59 | Outpatient (BNVA) | payer MEDICARE, SELFPAY | PROVIDERS: PCP Family Medicine; Visit Provider Nurse Practitioner Family | DX: I96 Gangrene, not elsewhere classified (principal); T81.31XD Disruption of external operation (surgical) wound, not elsewhere classified, subsequent encounter; Y83.8 Other surgical procedures as the cause of abnormal reaction of the patient, or of later complication, without mention of misadventure at the time of the procedure | CPT/HCPCS: 11042; A6219 ==

== ENCOUNTER → 2023-10-21 15:24 | Outpatient (BNVA) | payer MEDICARE, SELFPAY | PROVIDERS: PCP Family Medicine; Visit Provider Surgery | DX: T14.8XXA Other injury of unspecified body region, initial encounter; K43.2 Incisional hernia without obstruction or gangrene; X58.XXXA Exposure to other specified factors, initial encounter | CPT/HCPCS: 99214 ==

== ENCOUNTER 2023-10-22 09:38 | Outpatient (CLI) | payer MEDICARE, SELFPAY ==
--- NOTE | 2023-10-22 10:00 | NM_ITS ---
WS: [id number] NUCLEAR MEDICINE HIDA SCAN WITH GALLBLADDER EJECTION FRACTION HISTORY: T81.49XA - Infection following a procedure, other surgica... COMPARISON: 06/18/2023 and 10/14/2023 CT TECHNIQUE: The patient was intravenously injected with 7.4 mCi of TC99m Mebrofenin. Immediate imaging over the right upper quadrant was followed by 5 minute image and additional images for a total of 60 minutes. Normal uptake of radiotracer throughout the liver. Gallbladder surgically removed. Activity in the proximal small bowel was seen by 30 minutes. Good washout of the radiotracer from the liver by 90 minutes. Seen only on the 60-minute image of the abdomen is abnormal linear area of radi otracer in the expected location of the mid abdomen. Cannot determine the site of this abnormal tract . Does not appear to connect to the liver. Closely associated with the small bowel as it crosses the midline but no definite tract is identified. This is only seen on the 60-minute image. This would be in the same location as the soft tissue tract in the abdominal wall seen by CT. On the lateral imagin g of the abdomen there is no abdominal wall abnormality. IMPRESSION: 1. Normal uptake throughout the liver. 2. Seen only on the 60-minute image post injection is a linear tract of radiotracer uptake over the mid abdomen of uncertain etiology. This is seen only on the 60-minute image and its origin cannot be determined. Cannot be confident this is a fistulous tract associated with either the liver or small b owel. This is an abnormal tract. Does not appear to be reflux from the stomach.
== END 2023-10-22 09:39 | disposition home or self-care (01) ==
LOC: RAD 09:40
PROVIDERS: PCP Family Medicine; Visit Provider Student in an Organized Health Care Education/Training Program
DX: T81.49XA Infection following a procedure, other surgical site, initial encounter (principal); X58.XXXA Exposure to other specified factors, initial encounter
CPT/HCPCS: 11042; 78226; A6219; A9537

== ENCOUNTER → 2023-10-30 07:56 | Outpatient (BNVA) | payer MEDICARE, SELFPAY | PROVIDERS: PCP Family Medicine; Visit Provider Nurse Practitioner Family | DX: T81.31XD Disruption of external operation (surgical) wound, not elsewhere classified, subsequent encounter (principal); Y83.8 Other surgical procedures as the cause of abnormal reaction of the patient, or of later complication, without mention of misadventure at the time of the procedure | CPT/HCPCS: 11042; A6219 ==

== ENCOUNTER 2023-11-03 06:14 | Day surgery (SDC) | payer MEDICARE, SELFPAY ==
[2023-11-03] VITALS (10 sets, daily range): BP systolic 110–141; BP diastolic 61–74; PULSE 81–94; RESP 16–18; TEMP 36.1; O2SAT 90–95; BMI 32.3
[2023-11-03] MEDS: sodium chloride 0.9% 1,000 ML 30 ML IV (06:43)
--- NOTE | 2023-11-03 07:03 | W.PM.OPSUD ---
Surgery/Procedure H&P Update DATE OF PROCEDURE: November 03, 2023 DATE H&P PERFORMED: 10/21/23 H&P UPDATE INFORMATION: I have reviewed H&P completed within last 30 days, I have examined patient prior to procedure and No changes to prior documentation PLANNED PROCEDURE: Operation Date: 11/03/23 08:00 Proposed Procedures p Laparoscopy 70421,T14.8XXA(Not Applicable) - Partha Simon,
--- NOTE | 2023-11-03 07:39 | ANES.PREANE2 ---
Pre-Anesthetic Assessment Height/Weight: Height 1.78 m Weight 102.058 kg Temp Pulse Resp BP Pulse Ox O2 Del Method 97.0 F L 94 16 141/73 95 Room Air 11/03/23 06:34 11/03/23 06:34 11/03/23 06:34 11/03/23 06:34 11/03/23 06:34 11/03/23 06:34 Operation Date: 11/03/23 08:00 Proposed Procedures p Laparoscopy 46667,T14.8XXA(Not Applicable) - Partha Simon DO Familial anesthetic complications: None Was Beta Jeffery taken within 24 hours: N/A Was Clonidine taken within 24 hours: N/A Last intake: Intake Last Liquid Date 11/02/23 Last Liquid Time 23:45 Last Solid Date 11/02/23 Last Solid Time 23:45 Social Tobacco and No alcohol 1.5 pack(s) per day Exam alert, oriented x 3, clear to auscultation bilaterally and regular rate & rhythm Airway Submandibular: within normal limits Cervical ROM: within normal limits Mallampati: Class III Dentition: false History/ROS No significant history except as noted and No significant complaints Pulmonary Chronic Obstructive Pulmonary Disease and Cough CV/HEM Hypertension None reported Hepatic None reported GI Gastroesophageal Reflux Disease (None this morning. Controlled with meds) Metabolic Hyperlipidemia Musc/skel Lower Back Pain and Osteoarthritis/DJD Neuropsych Depression and Headache Anesthetic Plan ASA status: 3 Anesthesia: Anesthesia Evaluation and General Risk of > 500 ml blood loss (7ml/kg in children): No Medications/Allergies Home Medications Medication Instructions Recorded Confirmed Last Taken Type ascorbic acid (vitamin C) 500 mg 500 mg PO DAILY 09/06/20 11/03/23 11/02/23 History capsule cholecalciferol (vitamin D3) 25 25 mcg PO DAILY 09/06/20 11/03/23 11/02/23 History mcg (1,000 unit) capsule cyanocobalamin (vitamin B-12) 1,000 mcg PO DAILY 09/06/20 11/03/23 11/02/23 History 1,000 mcg tablet,extended release krill 500 mg-omega-3 110 mg-dha 28 1 cap PO BID 09/06/20 11/03/23 11/02/23 History mg-epa 60 ko-muifktz-[id number] capsule multivitamin 1 tab PO DAILY 09/06/20 11/03/2311/02/23 History omeprazole 20 mg capsule,delayed 20 mg PO DAILY 09/06/20 11/03/23 11/02/23 History release docusate sodium 100 mg capsule 100 mg PO DAILY PRN Constipation 01/05/23 11/03/23 11/02/23 History tadalafil 5 mg tablet (Cialis) 5 mg PO DAILY PRN sexual activity 01/14/23 11/03/23 Unknown Rx #30 tabs atorvastatin 20 mg tablet 20 mg PO QPM #90 tabs 04/09/23 11/03/23 11/02/23 Rx allopurinol 300 mg tablet 300 mg PO DAILY #90 tabs 07/09/23 11/03/23 11/02/23 Rx sodium hypochlorite 0.5 % solution 1 applic topical BID #473 mL 08/14/23 11/03/23 11/02/23 Rx (Dakin's Solution) lisinopril 20 1 tab PO DAILY #90 tabs 10/09/23 11/03/23 11/02/23 Rx mg-hydrochlorothiazide 25 mg tablet Allergies Allergy/AdvReac Type Severity Reaction Status Date / Time vancomycin AdvReac BP DROPPED Verified 11/03/23 06:32 Current Medications Generic Name Dose Route Start Last Admin Trade Name Freq PRN Reason Stop Dose Admin Sodium Chloride 1,000 mls @ 30 mls/hr 11/03/23 06:30 11/03/23 06:43 Sodium Chloride 0.9% IV 11/04/23 06:29 30 mls/hr .Q24H INDIRA Administration PFSH Anesthesia Medical History Amputated below knee Chronic low back pain Gout Hyperlipidemia Hypertension Tobacco use disorder Surgical History History of cholecystectomy History of incision and drainage History of right hip replacement Hx of foot surgery PLATE IN RT HEEL 2003 Hx of hand surgery CARPAL TUNNEL RIGHT HAND No pertinent past surgical history Family History Mother Cancer COLON CANCER Denies family history of Anesthesia complication Bleeding disorder Social History Smoking and tobacco/nicotine status: current every day tobacco/nicotine user cigarettes Alcohol intake: current Alcohol intake frequency: holidays/special occasions only Substance/Drug Use: never Caregiver/support person: Yes Lives independently: Yes Data Anesthesia Cardiac Studies: Echocardiogram 02/02/22
[2023-11-03] MEDS: ceFAZolin 2,000 MG in sodium chloride 0.9% (plus) 50 ML 100 MG IV (07:52)
[2023-11-03] MEDS: lidocaine-epi 2% 20 mL INJ INJECTION (09:02)
--- NOTE | 2023-11-03 10:03 | PC.NURSE ---
Sp02 dropped to 80% on RA. 2 L NC applied, m89% now. Patient stating pain is 5/10 in abdomen. Will treat pain.
[2023-11-03] MEDS: HYDROcodone-acetaminophen 10-325 mg Tablet 1 TAB PO (10:06)
[2023-11-03] MEDS: morphine 4 mg/mL SDV 1 mL IVP (10:28)
--- NOTE | 2023-11-03 10:32 | PC.NURSE ---
Patient still rating pain at 5-7 after pain pill. Patient offered morphine and was okay with treating breakthrough pain. 93% on 1 L NC. Alert and awake.
--- NOTE | 2023-11-03 10:59 | PC.NURSE ---
Pt reports pain is better. SPo2 will occasionally drop to 88% but returns to 92% on RA with coughing and deep breathing. Reported to anesthesia. Okayed pt to go home with education about deep breathing and coughing and pain control and use of pillow for stomach support with coughing and transferring.
--- NOTE | 2023-11-03 15:45 | PM.OP ---
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 Post-op diagnosis: Chronic draining abdominal wound dystrophic calcification and fat necrosis of omentum against the anterior abdominal wall near the two abscesses seen on CT Extensive Intraabdominal adhesions Procedure done: Diagnostic Laparoscopy Extensive laparoscopic lysis of adhesions Excision of omentum with dystrophic calcification and fat necrosis Implants: none Specimens removed/disposition: omentum Surgeon: Partha Simon DO Anesthesia: General Estimated blood loss (mL): 5 Complications: None apparent Brief History: This is a very pleasant 73 year gentleman who developed a hernia at his umbilical incision site following a cholecystectomy by another surgeon, along with a chronically draining abdominal wound that is not healing despite multiple debridements. A CT of the abdomen and pelvis revealed a questionable Fistula between the liver and anterior abdominal wall. Diagnostic laparoscopy was indicated. The risks and benefits were explained and documented. Procedure: Patient was wheeled into the operative room and placed on the OR table in the supine position. Abdomen was inspected, prepped and draped in the usual sterile fashion. A timeout was performed. General anestesia was achieved by anesthesiology. After localizing with 2% lidocaine with epinephrine, a 5 mm incision was made in the left upper quadrant. A Veress needle was placed into the abdomen and intraabodminal insufflation was brought to 15 mm Hg. A 5 mm trocar was placed into the incision. There were very significant intraabdominal adhesions. I placed a 12 mm trocar into the left lower quadrant under direct vision. Greater that 45 minutes was spent lysing adhesions with the laparoscopic ligasure. I was able to clear the 7 cm incisional hernia of adhesions. I could then see a significant amount of omentum with very hard dystrophic calcification adhered to the anterior abdominal wall cephalad to this. Using the ligasure, I was able to excise most of this and bring it out via the LLQ trocar and an endocatch bag. I encountered significant fat necrosis at this time. There was no fistula encountered. Hemostasis was noted and no other patholgy was seen. LLQ port site was closed at the fascia with a Christian val and 0 vicryl in a figure of 8 fashion. 3-0 vicryl was used to approximate the dermis. Dermabond was applied. Pateient tolerated procedure well
--- NOTE | 2023-11-03 18:00 | ANE.PACU2 ---
Inpatient post-anesthesia follow up: Airway intact: Yes Vital signs: Temperature 96.9 F Pulse Rate 84 Respiratory Rate 18 Blood Pressure 129/74 Pulse Oximetry 90 Oxygen Delivery Me thod Room Air Oxygen Flow Rate 1 Fraction of Inspir ed Oxygen Hydration adequate: Yes Nausea and vomiting: No Pain level: 3 Mental status: Baseline
== END 2023-11-03 11:15 | disposition home or self-care (01) ==
PROVIDERS: PCP Family Medicine; Visit Provider Surgery
PROC: (CPT 49320; principal; 2023-11-03 08:00)
DX: K66.0 Peritoneal adhesions (postprocedural) (postinfection) (principal); Z98.890 Other specified postprocedural states; J44.9 Chronic obstructive pulmonary disease, unspecified; I10 Essential (primary) hypertension; E78.5 Hyperlipidemia, unspecified; F17.210 Nicotine dependence, cigarettes, uncomplicated
CPT/HCPCS: 49329; 88304; A4216; J0131; J0330; J0690; J1100; J2270; J2371; J2405; J2704; J2710; J3010; J3490; J7030

== ENCOUNTER → 2023-11-06 08:35 | Outpatient (BNVA) | payer MEDICARE, SELFPAY | PROVIDERS: PCP Family Medicine; Visit Provider Nurse Practitioner Family | DX: Z09 Encounter for follow-up examination after completed treatment for conditions other than malignant neoplasm (principal); Z87.2 Personal history of diseases of the skin and subcutaneous tissue | CPT/HCPCS: 99212; 99214; A6212 ==

== ENCOUNTER → 2023-12-02 10:59 | Outpatient (BNVA) | payer MEDICARE, SELFPAY | PROVIDERS: PCP Family Medicine; Visit Provider Surgery | DX: K43.2 Incisional hernia without obstruction or gangrene (principal); T81.49XA Infection following a procedure, other surgical site, initial encounter; X58.XXXA Exposure to other specified factors, initial encounter | CPT/HCPCS: 99213; 99214 ==

== ENCOUNTER 2024-01-13 09:48 | Day surgery (SDC) | payer MEDICARE, SELFPAY ==
[2024-01-13] VITALS (10 sets, daily range): BP systolic 109–136; BP diastolic 52–77; PULSE 78–85; RESP 16–19; TEMP 36.2–36.6; O2SAT 90–97; BMI 31.4
[2024-01-13] MEDS: sodium chloride 0.9% 1,000 ML 30 ML IV (10:18)
--- NOTE | 2024-01-13 11:32 | PM.HP ---
Providers/Chief Complaint Primary Care Provider: Patrice Huang MD Chief Complaint: K43.2 History of Present Illness Byron Hector is a 73 year old male Review of Systems General: Reports: 10 or more systems reviewed and unremarkable except in HPI and below Medications/Allergies Home Medications Medication Instructions Recorded Confirmed Last Taken Type ascorbic acid (vitamin C) 500 mg 500 mg PO DAILY 09/06/20 01/13/24 01/12/24 History capsule cholecalciferol (vitamin D3) 25 25 mcg PO DAILY 09/06/20 01/13/24 01/12/24 History mcg (1,000 unit) capsule cyanocobalamin (vitamin B-12) 1,000 mcg PO DAILY 09/06/20 01/13/24 01/12/24 History 1,000 mcg tablet,extended release krill 500 mg-omega-3 110 mg-dha 28 1 cap PO BID 09/06/20 01/13/24 01/12/24 History mg-epa 60 up-pwwvsay-zyjun capsule multivitamin 1 tab PO DAILY 09/06/20 01/13/24 01/12/24 History omeprazole 20 mg capsule,delayed 20 mg PO DAILY 09/06/20 01/13/24 01/12/24 History release docusate sodium 100 mg capsule 100 mg PO DAILY PRN Constipation 01/05/23 01/13/24 01/12/24 History tadalafil 5 mg tablet (Cialis) 5 mg PO DAILY PRN sexual activity 01/14/23 01/12/24 Unknown Rx #30 tabs atorvastatin 20 mg tablet 20 mg PO QPM #90 tabs 04/09/23 01/13/24 01/12/24 Rx allopurinol 300 mg tablet 300 mg PO DAILY #90 tabs 07/09/23 01/13/24 01/12/24 Rx lisinopril 20 1 tab PO DAILY #90 tabs 10/09/23 01/13/24 01/12/24 Rx mg-hydrochlorothiazide 25 mg tablet hydrocodone 10 mg-acetaminophen 1 tab PO Q6H PRN pain #20 tabs 11/03/23 01/12/24 Unknown Rx 325 mg tablet amoxicillin 875 mg-potassium 1 tab PO DAILY #60 tabs 12/02/23 01/12/24 01/12/24 Rx clavulanate 125 mg tablet aspirin 81 mg tablet,delayed 81 mg PO DAILY 01/12/24 01/12/24 01/07/24 History release Allergies Allergy/AdvReac Type Severity Reaction Status Date / Time vancomycin AdvReac BP DROPPED Verified 12/02/23 11:16 PFSH Acute PFSH: Medical History Chronic low back pain Tobacco use disorder Amputated below knee Gout Hypertension Hyperlipidemia Surgical History History of incision and drainage History of right hip replacement History of cholecystectomy Hx of foot surgery PLATE IN RT HEEL 2004 Hx of hand surgery CARPAL TUNNEL RIGHT HAND No pertinent past surgical history Family History Mother Cancer COLON CANCER Denies family history of Anesthesia complication Bleeding disorder Social History Smoking and tobacco/nicotine status: current every day tobacco/nicotine user cigarettes Alcohol intake: current Alcohol intake frequency: holidays/special occasions only Substance/Drug Use: never Caregiver/support person: Yes Lives independently: Yes Vitals/I&O/Wt Last Vital Signs Temp 97.1 F L 01/13/24 10:06 Pulse 85 01/13/24 10:06 Resp 19 H 01/13/24 10:06 BP 136/77 01/13/24 10:06 Pulse Ox 95 01/13/24 10:06 O2 Del Method Room Air 01/13/24 10:07 Weight last 48 hrs Weight 219 lb A&P Assessment and plan (1) Incisional hernia: Plan Laparoscopic incisional hernia repair with mesh The risks and benefits of the procedure, including but not limited to, bleeding, infection, mesh infection requiring mesh excision antibiotic therapy and repeat surgery, damage surrounding structures, conversion to an open procedure, scar, numbness, pain, and/or recurrence were explained to the patient. Patient is understanding of the risks and wishes to proceed. Attestations Medical Necessity Statement*: Home Coding Level of Care Code Acute Code for [facility] Diagnoses Incisional hernia K43.2
--- NOTE | 2024-01-13 11:40 | ANES.PREANE2 ---
Pre-Anesthetic Assessment Height/Weight: Height 1.78 m Weight 99.337 kg Temp Pulse Resp BP Pulse Ox O2 Del Method 97.1 F L 85 19 H 136/77 95 Room Air 01/13/24 10:06 01/13/24 10:06 01/13/24 10:06 01/13/24 10:06 01/13/24 10:06 01/13/24 10:07 Operation Date: 01/13/24 11:40 Proposed Procedures p 71801 lap incisional hernia repair with mesh K43.2(Not Applicable) - Partha Simon DO Familial anesthetic complications: none Was Beta Jeffery taken within 24 hours: N/A Was Clonidine taken within 24 hours: N/A Last intake: Intake Last Liquid Date 01/12/24 Last Liquid Time 00:00 Last Solid Date 01/12/24 Last Solid Time 19:00 Social Tobacco and No alcohol Exam alert, oriented x 3 and regular rate & rhythm Airway Submandibular: within normal limits Cervical ROM: within normal limits Mallampati: Class II Dentition: false Pulmonary Chronic Obstructive Pulmonary Disease CV/HEM Hypertension GI Gastroesophageal Reflux Disease Metabolic Hyperlipidemia Anesthetic Plan ASA status: 3 Anesthesia: General Medications/Allergies Home Medications Medication Instructions Recorded Confirmed Last Taken Type ascorbic acid (vitamin C) 500 mg 500 mg PO DAILY 09/06/20 01/13/24 01/12/24 History capsule cholecalciferol (vitamin D3) 25 25 mcg PO DAILY 09/06/20 01/13/24 01/12/24 History mcg (1,000 unit) capsule cyanocobalamin (vitamin B-12) 1,000 mcg PO DAILY 09/06/20 01/13/24 01/12/24 History 1,000 mcg tablet,extended release krill 500 mg-omega-3 110 mg-dha 28 1 cap PO BID 09/06/20 01/13/24 01/12/24 History mg-epa 60 kx-hpepwkv-trftw capsule multivitamin 1 tab PO DAILY 09/06/20 01/13/24 01/12/24 History omeprazole 20 mg capsule,delayed 20 mg PO DAILY 09/06/20 01/13/24 01/12/24 History release docusate sodium 100 mg capsule 100 mg PO DAILY PRN Constipation 01/05/23 01/13/24 01/12/24 History tadalafil 5 mg tablet (Cialis) 5 mg PO DAILY PRN sexual activity 01/14/23 01/12/24 Unknown Rx #30 tabs atorvastatin 20 mg tablet 20 mg PO QPM #90 tabs 04/09/23 01/13/24 01/12/24 Rx allopurinol 300 mg tablet 300 mg PO DAILY #90 tabs 07/09/23 01/13/24 01/12/24 Rx lisinopril 20 1 tab PO DAILY #90 tabs 10/09/23 01/13/24 01/12/24 Rx mg-hydrochlorothiazide 25 mg tablet hydrocodone 10 mg-acetaminophen 1 tab PO Q6H PRN pain #20 tabs 11/03/23 01/12/24 Unknown Rx 325 mg tablet amoxicillin 875 mg-potassium 1 tab PO DAILY #60 tabs 12/02/23 01/12/24 01/12/24 Rx clavulanate 125 mg tablet aspirin 81 mg tablet,delayed 81 mg PO DAILY 01/12/24 01/12/24 01/07/24 History release Allergies Allergy/AdvReac Type Severity Reaction Status Date / Time vancomycin AdvReac BP DROPPED Verified 12/02/23 11:16 Current Medications Generic Name Dose Route Start Last Admin Trade Name Freq PRN Reason Stop Dose Admin Sodium Chloride 1,000 mls @ 30 mls/hr 01/13/24 10:15 01/13/24 10:18 Sodium Chloride 0.9% IV 01/14/24 10:14 30 mls/hr .Q24H INDIRA Administration PFSH Anesthesia Medical History Chronic low back pain Tobacco use disorder Amputated below knee Gout Hypertension Hyperlipidemia Surgical History History of incision and drainage History of right hip replacement History of cholecystectomy Hx of foot surgery PLATE IN RT HEEL 2003 Hx of hand surgery CARPAL TUNNEL RIGHT HAND No pertinent past surgical history Family History Mother Cancer COLON CANCER Denies family history of Anesthesia complication Bleeding disorder Social History Smoking and tobacco/nicotine status: current every day tobacco/nicotine user cigarettes Alcohol intake: current Alcohol intake frequency: holidays/special occasions only Substance/Drug Use: never Caregiver/support person: Yes Lives independently: Yes Data Anesthesia Cardiac Studies: Echocardiogram 02/02/22
[2024-01-13] MEDS: piperacillin-tazobactam 3.375 GM in sodium chloride 0.9% (plus) 50 ML IV (12:50)
[2024-01-13] MEDS: lidocaine-epi 2% PF 1:200,000 20 mL SDV XX (13:12)
--- NOTE | 2024-01-13 13:56 | PM.OP ---
Operative Report Date of procedure: January 13, 2024 Pre-op diagnosis: Incisional hernia Post-op diagnosis: same Procedure done: Laparoscopic repair of incisional hernia with mesh Implants: 6 inch round Ventralight mesh Specimens removed/disposition: Hernia sac Surgeon: Partha Simon DO Anesthesia: General Estimated blood loss: 5 cc Complications: None apparent Brief History: This very pleasant 73-year-old gentleman who originally presented to my office with a chronically draining wound on his abdomen along with an incisional hernia near his umbilicus. He underwent wound care and eventual diagnostic laparoscopy and long-term antibiotics to clear up his chronic infection. Now laparoscopic repair of incisional hernia with mesh is indicated. The risk and benefits were explained and documented. Procedure: Patient was wheeled into the operative room and placed on the OR table in a supine position. Abdomen was inspected prepped and draped in usual sterile fashion. Time-out was performed and all present were in agreement. A 15 blade scalp was used to make a 5 millimeter incision left upper quadrant. A Veress needle was placed into the incision and intra-abdominal insufflation was brought to 15 millimeters of mercury. A 12 millimeter trocar was placed into the left lower quadrant. The energy but device was then used to cut out the hernia sac. The hernia defect measured 5 cm in greatest diameter. A 6 inch ventral light mesh was placed into the abdomen and brought up through the umbilicus using an the Christian-Priscilla. The mesh was then tacked in place in a double crown fashion. The skeleton of the mesh was removed via the left lower quadrant. The hernia sac was then removed from the abdomen via the left lower quadrant. The left lower quadrant port site was closed with an 0 Vicryl suture in a Christian-Priscilla in a [id number] fashion. Incisions were closed with 4 O Vicryl in a subcuticular interrupted fashion. Skin glue was applied. A dressing that included cotton balls and a Tegaderm was placed over the umbilicus. Patient tolerated the procedure well.
[2024-01-13] MEDS: HYDROmorphone 1 mg/mL INJ 1 mL 0.5 MG IVP (14:10)
[2024-01-13] MEDS: fentaNYL 50 mcg/mL INJ 2mL IVP (14:20)
--- NOTE | 2024-01-13 17:15 | ANE.PACU2 ---
Inpatient post-anesthesia follow up: Airway intact: Yes Vital signs: Temperature 97.8 F Pulse Rate 78 Respiratory Rate 18 Blood Pressure 117/57 Pulse Oximetry 90 Oxygen Delivery Me thod Room Air Oxygen Flow Rate 2 Fraction of Inspir ed Oxygen Hydration adequate: Yes Nausea and vomiting: No Pain level: 2 Mental status: Baseline
== END 2024-01-13 15:44 | disposition home or self-care (01) ==
PROVIDERS: PCP Family Medicine; Visit Provider Surgery
PROC: 0WQF4ZZ Repair Abdominal Wall, Percutaneous Endoscopic Approach (ICD-10-PCS; CPT 49593; principal; 2024-01-13 11:30)
DX: K43.2 Incisional hernia without obstruction or gangrene (principal)
CPT/HCPCS: 49593; 88302; J1100; J1170; J2371; J2405; J2543; J2704; J3010; J3490; J7030

== ENCOUNTER 2024-01-23 19:20 | Inpatient (IN) | payer MEDICARE, SELFPAY ==
[2024-01-23] VITALS (39 sets, daily range): BP systolic 64–142; BP diastolic 41–84; PULSE 35–94; RESP 0–23; TEMP 35.9; O2SAT 91–96; BMI 29.9
--- NOTE | 2024-01-23 19:32 | ECG_ITS ---
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 Measurements Intervals [place] Rate: 38 P: 0 IA: 0 QRS: 268 QRSD: 110 T: 89 QT: 503 QTc: 403 Interpretive Statements SINUS RHYTHM WITH HIGH GRADE AV BLOCK INFERIOR WALL ST ELEVATION MO ACUTE MO Compared to ECG 02/03/2022 06:47:01 Ventricular premature complex(es) no longer present Right-axis deviation no longer present Right bundle-branch block no longer present Electronically Signed On 01-23-2024 21:49:09 SALES SERVICE ASSISTANT by David Samano M.D. [email or web address]
--- NOTE | 2024-01-23 19:34 | XRR_ITS ---
PROCEDURE INFORMATION: Exam: XR Chest Exam date and time: 01/23/2024 7:42 PM Age: 73 years old Clinical indication: Angina pectoris; Patient HX: Chest pain; Bradycardia; Hypotension TECHNIQUE: Imaging protocol: Radiologic exam of the chest. Views: 1 view. COMPARISON: CR XR chest 1V portable [id number] 02/02/2022 8:56 PM FINDINGS: Lungs: Bibasilar atelectatic changes. No focal consolidation. Pleural spaces: Unremarkable. No pleural effusion. No pneumothorax. Heart/Mediastinum: There is mild cardiomegaly. Bones/joints: There is mild degenerative disease of bilateral glenohumeral joints. XR/XR chest 1V portable [id number] IMPRESSION: No acute cardiopulmonary process.
--- NOTE | 2024-01-23 19:41 | ED_ITS ---
HPI - Dizziness 2 General: Chief Complaint: Dizziness Stated Complaint: left shoulderblade hurts flush sob nauseous Time Seen by Provider: 01/23/24 19:33 History of Present Illness: HPI Narrative: 73-year-old male presents to the emergen cy department with complaints of 9 out of 10 left shoulder blade pain. He states that approximately 1700 today he was grocery shopping then became very sweaty started feeling dizzy and nauseated he states he went home and rested in the bed for about an hour he states he continued to feel very nauseated and his back pain continued. He states he started feeling short of breath and then became concerned that he might be having a heart attack. He states he has no cardiac history. He does appear to be very diaphoretic upon presentation to the emergency department. He denies active chest pain but does state that he does have a sharp pain to his left shoulder and left shoulder blade. 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 Simon. Associated symptoms: Reports chest pain, diaphoresis and nausea Review of Systems 2 General: Reports: 10 or more systems reviewed and unremarkable except in HPI and below Const: Reports: diaphoresis Card: Reports: chest pain GI: Reports: nausea PFSH ED 2 PFSH: Medical History Chronic low back pain Tobacco use disorder Amputated below knee Gout Hypertension Hyperlipidemia Surgical History History of incision and drainage History of right hip replacement History of cholecystectomy Hx of foot surgery PLATE IN RT HEEL 2003 Hx of hand surgery CARPAL TUNNEL RIGHT HAND No pertinent past surgical history Family History Mother Cancer COLON CANCER Denies family history of Anesthesia complication Bleeding disorder Social History Smoking and tobacco/nicotine status: current every day tobacco/nicotine user cigarettes Alcohol intake: current Alcohol intake frequency: holidays/special occasions only Substance/Drug Use: never Caregiver/support person: Yes Lives independently: Yes Physical Exam 2 Narrative: EXAM NARRATIVE: Constitutional: the patient appears well nourished and with normal development. Vital signs reviewed as documented. Diaphoretic. HENMT: Normocephalic, atraumatic. External ears normal appearance without drainage. Nose without drainage, normal appearance. Mucus membranes moist. Neck is supple, No jugular venous distension, trachea is midline, no appreciable carotid bruits. No lymphadenopathy. Flexion, extension and lateral rotation is without pain. Eyes: Pupils are equal, round, reactive to light and accommodation. No scleral icterus. Extra-ocular movement are intact. Thorax is symmetrical and with equal rise and fall with respirations. Resp: Lungs are clear to auscultation. No wheezes, rales, crackles or ronchi at present. Cardio: Bradycardic at a ventricular rate of 38 bpm, 3rd degree heart block, positive S1, S2. No appreciable murmurs, rubs or gallops. GI: Abdominal exam reveals normal bowel sounds to all quadrants. No organomegaly. No obvious palpable masses noted. No hepatomegally appreciated. Soft, non-tender to palpation. Extremity: Left BKA noted, remainder of the extremities are non-edematous and both femoral and pedal pulses are 2+ and equal bilaterally. Moves all extremities well, sensation in all extremities. Neuro: Alert and oriented x4, person, place, time and situation. Cranial nerves II through XII are grossly intact, there is no focal neurological deficits that I can appreciate at present. Sensation intact to all extremities. 2-point discrimination intact. Light touch intact to all extremities. Motor strength in the upper and lower extremities are equal and bilateral 5/5. Psych: Cooperative, calm, normal thought process, appropriate judgment. Skin: No lesions, rashes. No gross abnormalities noted. Back: Symmetrical, no obvious deformity, No CVA tenderness Course 2 Vital Signs: Vital signs: Vital Signs Pulse Rate 38 L 01/23/24 19:23 Respiratory Rate 16 01/23/24 19:23 Blood Pressure 71/43 01/23/24 19:23 Pulse Oximetry 93 01/23/24 19:23 Oxygen Delivery Me thod Room Air 01/23/24 19:23 MDM - Dizziness Medical Decision Making Physical exam completed and documented, we have initiated a STEMI alert per protocol I will obtain serial cardiac enzymes, serial twelve-lead EKGs, chest x-ray, CBC, CMP, urinalysis, B-type natriuretic peptide, PT/PTT/INR, and a chest x-ray. I will provide cardiac dose aspirin. I have contacted Dr. Nguyen the paralegal legal secretary and discussed the twelve-lead EKG findings with the paralegal legal secretary. I will provide a loading dose of heparin and heparin drip as well as 600 mg Plavix. I have reviewed previous and pertinent medical records for assist in obtaining beneficial medical information to improved the care and treatment of the patient. I have placed a cardiology consultation. Medical Records I reviewed the patient's medical records. Lab Data I reviewed the patient's lab results. 01/23/24 07:33 01/23/24 07:33 Radiology Impressions Chest X-Ray 01/23/24 19:34 IMPRESSION: No acute cardiopulmonary process. Laboratory Results WBC 17.96 10^3/uL (3.29-11.43) H 01/23/24 07:33 RBC 5.56 10^6/uL (3.85-5.65) 01/23/24 07:33 Hgb 16.90 g/dL (11.27-16.99) 01/23/24 07:33 Hct 49.0 % (37-53) 01/23/24 07:33 MCV 88.1 fl (82-101) 01/23/24 07:33 MCH 30.4 pg (27-33) 01/23/24 07:33 MCHC 34.5 g/dL (30-55) 01/23/24 07:33 RDW 13.9 % (12.1-15.1) 01/23/24 07:33 Plt Count 325 10^3/cmm (157-399) 01/23/24 07:33 MPV 8.6 fL (7.4-10.4) 01/23/24 07:33 Neut % (Auto) 82.7 % 01/23/24 07:33 Lymph % (Auto) 10.9 % 01/23/24 07:33 Perkins % (Auto) 4.6 % 01/23/24 07:33 Eos % (Auto) 0.7 % 01/23/24 07:33 Baso % (Auto) 0.5 % 01/23/24 07:33 Neut # (Auto) 14.87 10^3/uL (1.8-7.7) H 01/23/24 07:33 Lymph # (Auto) 2.0 10^3/uL (0.8-4.8) 01/23/24 07:33 Perkins # (Auto) 0.8 10^3/uL (0.2-0.9) 01/23/24 07:33 Eos # (Auto) 0.1 10^3/uL (0.0-0.8) 01/23/24 07:33 Baso # (Auto) 0.1 10^3/uL (0.0-0.1) 01/23/24 07:33 Nucleated RBC % (auto) 0 % 01/23/24 07:33 Nucleated RBCs # 0.0 /100WBC 01/23/24 07:33 PT 13.80 SECONDS (12.1-14.9) 01/23/24 07:33 INR 1.03 (0.8-1.2) 01/23/24 07:33 APTT 37.1 SECONDS (23.9-36.7) H 01/23/24 07:33 Sodium 134 mmol/L (136-145) L 01/23/24 07:33 Potassium 3.7 mmol/L (3.5-5.1) 01/23/24 07:33 Chloride 94 mmol/L (98-107) L 01/23/24 07:33 Carbon Dioxide 24 mmol/L (22-29) 01/23/24 07:33 Anion Gap 19.7 (5-19) H 01/23/24 07:33 BUN 27 mg/dL (8-23) H 01/23/24 07:33 Creatinine 1.8 mg/dL (0.7-1.2) H 01/23/24 07:33 GFR Calculation Not Reportable 01/23/24 07:33 Glucose 222 mg/dL (65-115) H 01/23/24 07:33 Calculated Osmolality 290 mOsm/kg (285-295) 01/23/24 07:33 Calcium 10.9 mg/dL (8.5-10.5) H 01/23/24 07:33 Magnesium 1.5 mg/dL (1.7-2.3) L 01/23/24 17:03 Total Bilirubin 0.6 mg/dL (0.15-1.2) 01/23/24 07:33 AST 13 U/L (0-40) 01/23/24 07:33 ALT 13 U/L (0-41) 01/23/24 07:33 Alkaline Phosphatase 104 U/L (40-130) 01/23/24 07:33 Troponin T Baseline 74 ng/L (0-15) H 01/23/24 07:33 NT-Pro-B Natriuret Pep 249 pg/mL (0-125) H 01/23/24 07:33 Total Protein 7.8 g/dL (6.6-8.7) 01/23/24 07:33 Albumin 4.4 g/dL (3.5-5.2) 01/23/24 07:33 Globulin 3.4 g/dL (1.3-4.6) 01/23/24 07:33 All radiology interpretation(s) finalized by discharge EKG Data EKG 1: Interpretation: Twelve-lead EKG obtained at 1932 and reviewed at 1935 demonstrates sinus bradycardia with a ventricular rate of 38 bpm. He does have significant ST elevation in leads II, III and aVF as well as T wave inversion in V1, V2, he also has ST elevation in V5 and V6. QRS duration is 110, QT 503, QTc 425. Critical Care Time 2 Critical Care Time: Critical Care Time: Yes Total Critical Care Time: 45 Attestation: The patients was emergently evaluated as this patient's presentation and case had a high probability of a clinically significant, sudden, or life threatening deterioration of this patient's initial critical presentation or condition which required my full and direct attention, intervention and personal management. Discharge Plan Discharge Patient Disposition: Admitted As Inpatient Admit Provider: David Samano Clinical Impression: ST elevation (STEMI) myocardial infarction Qualifiers: Involved coronary artery: right coronary artery Qualified Code(s): I21.11 - ST elevation (STEMI) myocardial infarction involving right coronary artery Condition: Stable Coding Level of Care Code ED Seam Finisher for Eliecer Jain
[2024-01-23] MEDS: clopidogrel 300 mg Tablet 600 MG PO (19:42)
[2024-01-23 19:43] LABS: Basophils # 0.1 10^3/uL (0.0-0.1); Basophils % 0.5 %; Eosinophils # 0.1 10^3/uL (0.0-0.8); Eosinophils % 0.7 %; Lymphocytes % 10.9 %; Mean Corpuscular HGB Conc 34.5 g/dL (30-55); Mean Corpuscular Hemoglobin 30.4 pg (27-33); Mean Corpuscular Volume 88.1 fl (82-101); Mean Platelet Volume 8.6 fL (7.4-10.4); Monocytes # 0.8 10^3/uL (0.2-0.9); Monocytes % 4.6 %; Neutrophils # 14.87 10^3/uL (1.8-7.7); Neutrophils % 82.7 %; Nucleated Red Blood Cells % 0 %; Platelet Count 325 10^3/cmm (157-399); Red Blood Count 5.56 10^6/uL (3.85-5.65); Red Cell Distribution Width 13.9 % (12.1-15.1); White Blood Count 17.96 10^3/uL (3.29-11.43)
[2024-01-23] MEDS: aspirin 81 mg Chew Tablet 324 MG PO (19:43)
[2024-01-23] MEDS: heparin 5,000 unit/mL INJ 1 mL 4000 UNIT IVP (19:43)
[2024-01-23] MEDS: sodium chloride 0.9% 1,000 ML 999 ML IV (19:44)
[2024-01-23] MEDS: heparin drip 25,000 UNIT/500 ML PREMIX 28 UNIT IV (19:51)
[2024-01-23 19:59] LABS: INR 1.03 (0.8-1.2)
[2024-01-23 20:00] LABS: Partial Thromboplastin Time 37.1 SECONDS (23.9-36.7)
[2024-01-23] MEDS: norepinephrine 4 MG/250 ML BAG 22.5 MG IV (20:02)
--- NOTE | 2024-01-23 20:07 | P.HP_ITS ---
Providers/Chief Complaint 2 Admitting Physician: David Samano MD/ Interventional cardiology Primary Care Provider: Patrice Huang MD Chief Complaint: left shoulderblade hurts flush sob nausea vision b History of Present Illness Byron Hector is a 73 year old male with past medical history of hypertension, hyperlipidemia was presented with 2 hours of severe left shoulder pain. It is associated with the nausea and diaphoresis. EKG is showing ST elevation FL in inferior leads with reciprocal changes in lateral leads. He is bradycardic with high degree AV block. He is also hypotensive. Shipping Point Inspector activated emergently. Review of Systems 2 General: Reports: 10 or more systems reviewed and unremarkable except in HPI and below Const: Reports: diaphoresis Card: Reports: chest pain GI: Reports: nausea Medications/Allergies Home Medications Medication Instructions Recorded Confirmed Last Taken Type ascorbic acid (vitamin C) 500 mg 500 mg PO DAILY 09/06/20 01/13/24 01/12/24 History capsule cholecalciferol (vitamin D3) 25 25 mcg PO DAILY 09/06/20 01/13/24 01/12/24 History mcg (1,000 unit) capsule cyanocobalamin (vitamin B-12) 1,000 mcg PO DAILY 09/06/20 01/13/24 01/12/24 History 1,000 mcg tablet,extended release krill 500 mg-omega-3 110 mg-dha 28 1 cap PO BID 09/06/20 01/13/24 01/12/24 History mg-epa 60 [id number] capsule multivitamin 1 tab PO DAILY 09/06/20 01/13/24 01/12/24 History omeprazole 20 mg capsule,delayed 20 mg PO DAILY 09/06/20 01/13/24 01/12/24 History release docusate sodium 100 mg capsule 100 mg PO DAILY PRN Constipation 01/05/23 01/13/24 01/12/24 History atorvastatin 20 mg tablet 20 mg PO QPM #90 tabs 04/09/23 01/13/24 01/12/24 Rx allopurinol 300 mg tablet 300 mg PO DAILY #90 tabs 07/09/23 01/13/24 01/12/24 Rx lisinopril 20 1 tab PO DAILY #90 tabs 10/09/23 01/13/24 01/12/24 Rx mg-hydrochlorothiazide 25 mg tablet hydrocodone 10 mg-acetaminophen 1 tab PO Q6H PRN pain #20 tabs 11/03/23 01/12/24 Unknown Rx 325 mg tablet amoxicillin 875 mg-potassium 1 tab PO DAILY #60 tabs 12/02/23 01/12/24 01/12/24 Rx clavulanate 125 mg tablet aspirin 81 mg tablet,delayed 81 mg PO DAILY 01/12/24 01/12/24 01/07/24 History release docusate sodium 100 mg capsule 100 mg PO BID #14 caps 01/13/24 Unknown Rx (Colace) hydrocodone 10 mg-acetaminophen 1 tab PO Q4H PRN pain #30 tabs 01/13/24 Unknown Rx 325 mg tablet tadalafil 5 mg tablet (Cialis) 5 mg PO DAILY PRN sexual activity 01/13/24 Unknown Rx #30 tabs Allergies Allergy/AdvReac Type Severity Reaction Status Date / Time vancomycin AdvReac BP DROPPED Verified 01/23/24 19:26 PFSH Acute 2 PFSH: Medical History Chronic low back pain Tobacco use disorder Amputated below knee Gout Hypertension Hyperlipidemia Surgical History History of incision and drainage History of right hip replacement History of cholecystectomy Hx of foot surgery PLATE IN RT HEEL 2003 Hx of hand surgery CARPAL TUNNEL RIGHT HAND No pertinent past surgical history Family History Mother Cancer COLON CANCER Denies family history of Anesthesia complication Bleeding disorder Social History Smoking and tobacco/nicotine status: current every day tobacco/nicotine user cigarettes Alcohol intake: current Alcohol intake frequency: holidays/special occasions only Substance/Drug Use: never Caregiver/support person: Yes Lives independently: Yes Vitals/I&O/Wt Last Vital Signs Pulse 38 L 01/23/24 19:23 Resp 16 01/23/24 19:23 BP 71/43 01/23/24 19:23 Pulse Ox 93 01/23/24 19:23 O2 Del Method Room Air 01/23/24 19:23 Physical Exam 2 Narrative: GENERAL: Patient is alert, awake and oriented x3. [] NECK: No jugular vein distension. [] HEENT: No cyanosis. No icterus. No pallor. [] HEART: Bradycardia, Regular S1 and S2. No murmur LUNGS: Clear to auscultate bilaterally. [] CENTRAL NERVOUS SYSTEM: Grossly nonfocal. [] EXTREMITIES: Lower extremities with 1+ edema bilaterally. Data 01/23/24 07:33 01/23/24 07:33 A&P Assessment and plan (1) ST elevation (STEMI) myocardial infarction: Qualifiers: Involved coronary artery: right coronary artery Qualified Code(s): I 21.11 - ST elevation (STEMI) myocardial infarction involving right coronary artery (2) Cardiogenic shock: (3) Hyperlipidemia: (4) Hypertension: Plan Patient has presented with acute inferior wall ST elevation FL with cardiogenic shock. Cardiac Shipping Point Inspector emergently activated. Will be taken to cardiac Shipping Point Inspector. Risks and benefits of the procedure discussed. Aspirin and Plavix loaded. Heparin bolus given. Currently getting bolus of IV fluids. Also asked ER to start Levophed. Will order close echocardiogram. Will need ICU placement after procedure. Attestations 2 Medical Necessity Statement*: Care expected to cross 2 midnights. Patient has presented with acute ST elevation FL with cardiogenic shock Coding Level of Care Code Acute Code for [facility] Fwd Diagnoses ST elevation (STEMI) myocardial infarction I21.11 Involved coronary artery: right coronary artery Cardiogenic shock R57.0 Hyperlipidemia E78.5 Hypertension I10
[2024-01-23 20:08] LABS: Troponin(5th) Baseline 74 ng/L (0-15)
--- NOTE | 2024-01-23 20:08 | XACV_ITS ---
Exam Room: 2 Ht: 178 cm Wt: 95 kg BSA: 2.19 m2 Gender: Male : 1950 Any Known Allergies: Other Exam Priority: Routine Procedure(s): Procedure Description: Diagnostic procedure Procedure Description: PCI procedure Procedure Description: Drug Eluting Coronary Stent Procedure Description: PTCA Procedure Description: Miscellaneous Procedure Description: ACT Procedure Description: Coronary Angiography Diagnostic Cath Status: Emergency Diagnostic Findings * INDICATION: 73 year old male with past medical history of hypertension, hyperlipidemia was presented with 2 hours of severe left shoulder pain. It is associated with the nausea and diaphoresis. EKG is showing ST elevation [place] in inferior leads with reciprocal changes in lateral leads. He is bradycardic with high degree AV block. He is also hypotensive. Early Childhood Coordinator activated emergently. * Left Main has mild luminal irregularities. * Left Anterior Descending has mild luminal irregularities. * Circumflex has no significant disease. * Mid Right Coronary Artery to Distal Right Coronary Artery: total thrombotic occlusion, EWA: 0 flow. This is culprit vessel for ST elevation TN.. * RV marginal branch appears to arise anomalously with a seprate ostia and ended up in RV with fistulous opening. * Coronary angiography shows right dominance. PCI Status: Emergency PCI Indication: STEMI - Immediate PCI for STEMI Interventional Findings * PROCEDURE DETAIL: We engaged RCA with JR4 guide catheter. IV heparin was administered to maintain anticoagulation. 0.014 run-through guidewire was used to cross the total thrombotic occlusion of mid to distal RCA. We predilated occluded segment with 2.5 x 12 mm semicompliant balloon. This restored flow. Using guide liner, we advanced 3.5 x 30 mm resolute [place] drug-eluting stent. In mid segment there was underexpansion. We treated this with high-pressure inflation of 3.75 x 8 mm NC balloon. Stent expanded very well. At this time final angiogram was performed that showed excellent stent expansion, no residual stenosis and EWA-3 flow. There was distal embolization at the end of PDA. We decided to treated with Aggrastat for 4 hours. With revascularization of RCA, bradycardia and high degree AV block resolved and patient went into sinus rhythm. Blood pressure also improved with down titration of Levophed. Guidewire and guide catheter were removed. Patient left the Early Childhood Coordinator in a stable condition.. * Mid Right Coronary Artery to Distal Right Coronary Artery: 100% stenosis treated with a AB TREK 2.50X12 RX BALLOON, CLARISSA Yang EHSAN 3.5X30 DENNY, and CLARISSA GUZMAN EUPHORA RX [id number] BALLOON. 0% residual stenosis, EWA: 3 flow. Conclusions 1. Total thrombotic occlusion of mid to distal RCA s/p successful revascularization with 1 stent. 2. High grade AV block and bradycardia resolved post PCI. 3. Mid Right Coronary Artery to Distal Right Coronary Artery was treated with a Balloon, Drug Eluting Stent, and Balloon. Recommendations * Transfer to ICU. * Dual antiplatelet therapy with aspirin and plavix for at least 1 year. * Continue aggrastat for 4 hours as there is distal embolization at end of PDA. * High intensity statin therapy. * Order echocardiogram. * Downtitrate levophed as able. Interventional RX Recommendation: PCI w/o planned CABG Diagnostic RX Recommendation: PCI w/o planned CABG Anticoagulation: Heparin Pressures Phase:Rest AO : 97 / 48 ( 55 ) @ 3:28:54 PM 50 / 4 ( 25 ) @ 3:28:54 PM 81 / 64 ( 56 ) @ 3:28:54 PM 110 / 81 ( 95 ) @ 3:28:54 PM 63 / 42 ( 49 ) @ 3:28:54 PM 74 / 46 ( 58 ) @ 3:28:54 PM 78 / 50 ( 59 ) @ 3:28:54 PM 67 / 42 ( 50 ) @ 3:28:54 PM 117 / 60 ( 81 ) @ 3:28:54 PM 131 / 72 ( 93 ) @ 3:28:54 PM 134 / 74 ( 95 ) @ 3:28:54 PM LV : 138 / 8 / 26 @ 3:28:54 PM 139 / 8 / 23 @ 3:28:54 PM Valves Phase:DefaultPhase AV : 4.0 @ 9:28:54 PM AV Mean Gradient: 10.0 @ 9:28:54 PM Clinical Evaluation EBL: 5mL-10mL Procedural Details Pre-Procedure Time Out. Identified patient by full name and date of as verbalized by the patient/guarantor. Does the consent match the physician's order: N/A Emergent; Informed Consent not obtained due to time critical life threat. Accurate & Complete Informed Consent: N/A Emergent; Informed Consent not obtained due to time critical life threat. Inpatient/Outpatient History & Physical on Chart: N/A Emergent; Informed Consent not obtained due to time critical life threat. If H&P is completed, is and addenduem needed: N/A Emergent; Informed Consent not obtained due to time critical life threat; If yes, is the addendum complete: N/A Emergent. Visualize and Verify Site with Patient/Guarantor: N/A. Relevant Radiology Images available: N/A Emergent. The risks, benefits, and alternatives of sedation and/or procedure were discussed by physician. The patient agrees to continue. Procedure started. [facility] Clinical Fraility Score: 5: Mildly Frail. Early Childhood Coordinator Indications: ACS <= 24 hours. Chest Pain Symptom Assessment: Typical Angina Symptoms. Correct patient, site and procedure confirmed by cath team. Current diagnosis: STEMI. PERRLA. Strong, equal hand melter operator bilaterally. Lungs clear x 5 lobes. IV Site on Arrival: 20 gauge in the right anticubital. IV Site on Arrival: 20 gauge in the right forearm. IV Site on Arrival: 20 gauge in the left anticubital. Pt arrived with Levophed infusing at 8mcg/min. Heparin gtt infusing at 28ml/hr on arrival to senior laboratory technician. Drip stopped per physician verbal order. IV Fluids: 0.9% NaCl at KVO. 500 mL infused prior to senior laboratory technician. Oxygen started at 2liters/min via nasal canula. right radial was prepped with chloroprep then draped in the usual sterile fashion. right groin was prepped with chloroprep then draped in the usual sterile fashion. Baseline sample Acquired. HR: 53 BPM. Physician notified. Physician arrived. Immediate Pre-Procedure Time Out. Correct Patient: Yes; Correct Procedure: Yes; Correct Site: Yes; Correct Patient Position: Yes; Correct Supplies: Yes; Dried Flammable Prep: Yes; Blood Products Available: N/A;. Lidocaine 1% infiltrated to the right radial. Arterial access obtained. 6 british JR 4 guide catheter was inserted over the wire. Admit Source: Emergency department. JR 4 guide out over exchange wire. New JR 4 guide in over exchange wire. Levophed titrated to 10mcg/min by Damien Javier RN. Runthrough guidewire was advanced through the guide catheter to lesion in the mid RCA. Balloon inserted to lesion in the mid RCA. Inflation number : 1 A AB TREK 2.50X12 RX BALLOON was prepped and advanced across the Mid RCA , then inflated to 8 JANA for 0:11 seconds. Inflation number: 2 The AB TREK 2.50X12 RX BALLOON was reinflated across the Mid RCA, to 8 JANA for 0:13 seconds. Balloon out. Results checked. Runthrough wire redirected to PLV. 6fr Guideliner in over runthrough wire. Stent inserted to lesion in the mid RCA. Inflation Number : 3 A MDT R EHSAN 3.5X30 DENNY -Lot Number# [id number] EXP 11-13-2024 was prepped and advanced across the Mid RCA. The stent was deployed at 12 JANA for 0:24 seconds. Stent balloon out over wire. Guideliner out over wire. Results checked. 3.75 X 15mm NC Balloon inserted to lesion in the mid RCA. Undeployed Balloon out over wire. Balloon inserted to lesion in the mid RCA. Unable to cross, balloon out. 6fr Guideliner in over runthrough wire. Balloon inserted to lesion in the mid RCA. Inflation number : 4 A MDT NC EUPHORA RX [id number] BALLOON was prepped and advanced across the Mid RCA , then inflated to 18 JANA for 0:12 seconds. Inflation number: 5 The MDT NC EUPHORA RX [id number] BALLOON was reinflated across the Mid RCA, to 20 JANA for 0:12 seconds. Inflation number: 6 The MDT NC EUPHORA RX [id number] BALLOON was reinflated across the Mid RCA, to 15 JANA for 0:07 seconds. Balloon out. Results checked. Runthrough wire out. JR 4 guide catheter out over exchange wire. A 5 british TIG catheter in over wire. View taken of left coronary artery. Catheter removed over the exchange wire. A 5 british JL4 catheter in over wire. Multiple views taken of left coronary artery. Catheter removed over the exchange wire. A 5 british JR4 catheter in over wire. EDP Sample taken: LV 138/8,26; HR: 78 BPM; SpO2: 91%. Pullback taken: LV 139/8,23; AO 131/72(93); Mean: 10mmHg, Peak to Peak: 4mmHg, SEP: 7sec/min; HR: 82 BPM; SpO2: 94%. Catheter removed over the exchange wire. ACT drawn. Results 240 seconds. Therapeutic limits - pre-heparin administration 90-150 seconds and monitoring heparin during a vascular procedure >250 seconds. Physician scrubbed out. A TR Band was successful obtaining hemostatsis at the Right Radial artery insertion site. Post Procedure: Pulses reassessed and unchanged. PERRLA. Strong, equal hand melter operator bilaterally. No VTE prophylaxis required. Medication's Wasted: Lidocaine 1% = 15 mL. Medication's Wasted: Other = Fentanyl 50mcg. Medication's Wasted: Heparin = 1000 units. Medication's Wasted: Nitro = 50mg. Total IV fluids: 200 mL. PCI Indication: STEMI. Post-op diagnosis: STEMI, Inferior ST elevation. Status post PCI placement of 1 stent. Complications: None. Estimated blood loss: 5mL-10mL. Responsiveness - Normal response to verbal stimuli; alert and oriented, PERRLA. Airway - Unaffected, no intervention required; spontaneous ventilation. Circulation: W/N/L, pulses unchanged. Nausea/Vomiting: No. Procedure completed. Patient transferred by wheelchair to ICU. Vital chart was stopped. Access Site Site: Right Radial artery Sheath Size: 6 Fr Hemostasis Method: TR Band Hemostasis Success: Successful Procedure Medications Start: 8:36 PM Stop: 8:36 PM Medication: Heparin Amount: 5000 units Route: I.V. Start: 8:41 PM Stop: 8:41 PM Medication: Versed Amount: 1 mg Route: I.V. Start: 8:41 PM Stop: 8:41 PM Medication: Fentanyl Amount: 25 mcg Route: I.V. Start: 8:56 PM Stop: 8:56 PM Medication: Aggrastat 12.5 mg/250 mL Amount: 48 ml Route: I.V. bolus Start: 8:59 PM Stop: 8:59 PM Medication: Aggrastat 12.5 mg/250 mL Amount: 17.3 ml/hr Route: I.V. drip Start: 9:04 PM Stop: 9:04 PM Medication: Fentanyl Amount: 25 mcg Route: I.V. Start: 9:04 PM Stop: 9:04 PM Medication: Versed Amount: 1 mg Route: I.V. I, the attending physician, have reviewed and verified all procedure medications. Yes, all medications given per verbal order Report Signatures Finalized by David Samano MD on 01/25/2024 12:20 PM
[2024-01-23 20:21] LABS: Alanine Aminotransferase 13 U/L (0-41); Albumin Level 4.4 g/dL (3.5-5.2); Alkaline Phosphatase 104 U/L (40-130); Anion Gap 19.7 (5-19); Aspartate Amino Transferase 13 U/L (0-40); Blood Urea Nitrogen 27 mg/dL (8-23); Calcium 10.9 mg/dL (8.5-10.5); Carbon Dioxide 24 mmol/L (22-29); Chloride 94 mmol/L (98-107); Globulin 3.4 g/dL (1.3-4.6); Glucose 222 mg/dL (65-115); NT Pro B Type Natriuretic Pept 249 pg/mL (0-125); Osmolality Calculated 290 mOsm/kg (285-295); Potassium 3.7 mmol/L (3.5-5.1); Sodium 134 mmol/L (136-145); Total Bilirubin 0.6 mg/dL (0.15-1.2); Total Protein 7.8 g/dL (6.6-8.7)
[2024-01-23 20:42] LABS: Magnesium 1.5 mg/dL (1.7-2.3)
--- NOTE | 2024-01-23 21:34 | ECG_ITS ---
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 Measurements Intervals [place] Rate: 66 P: 72 CT: 229 QRS: 269 QRSD: 147 T: -17 QT: 414 QTc: 434 Interpretive Statements SINUS RHYTHM WITH SINUS ARRHYTHMIA WITH FIRST DEGREE AV BLOCK RIGHT AXIS DEVIATION [QRS AXIS > 100] RIGHT BUNDLE BRANCH BLOCK [120+ ms QRS DURATION, UPRIGHT V1, 40+ ms S IN I/aVL/V4/V5/V6] INFERIOR MYOCARDIAL INFARCTION , PROBABLY RECENT [40+ ms Q WAVE AND/OR ST/T ABNORMALITY IN II/aVF] ACUTE ND Compared to ECG 01/23/2024 19:32:50 First degree AV block now present Right-axis deviation now present Right bundle-branch block now present Myocardial infarct finding now present ST (T wave) deviation no longer present Electronically Signed On 01-24-2024 15:33:59 SEWER DIGGER by Hyun Packer M.D. [email or web address] [facility] of greenvilleBeijing Joy China Networkmercy health all[email or web address].[email or web address]/store/OM/[id number]
[2024-01-23 21:54] LABS: Glucose Point of Care 175 mg/dL (70-110)
[2024-01-23] MEDS: sodium chloride 0.9% 1,000 ML 50 ML IV (22:41)
[2024-01-23 23:14] LABS: Troponin 5 2HR 738.1 ng/L (0-15); Troponin 5 2HR Delta 664.1 ABS# (0-10)
--- NOTE | 2024-01-23 23:47 | PC.NURSE ---
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 Patient AOx4 on arrival to unit with out complaints of pain. Patient exhibiting pauses with deisy alarms into the 40s. Dr. Samano present and aware of rhythm. Patient experienced a few runs of ventricular beats. Longest lasting 19, monomorphic. Dr. Samano notified with no new orders received as expected post cath procedure. TR band in place without hematoma or bleeding present.
[2024-01-24] VITALS (90 sets, daily range): BP systolic 87–140; BP diastolic 44–82; PULSE 54–74; RESP 0–24; TEMP 35.9–36.9; O2SAT 89–99
[2024-01-24 01:32] LABS: Urine Appearance Hazy (CLEAR); Urine Color Yellow (Yellow); pH Urine 6.5 (5-7)
[2024-01-24 01:33] LABS: Add Urine Microscopic? YES; Bilirubin Urine Neg (Negative); Blood Urine 2+ (Negative); Glucose Urine UA 1+ (Normal); Ketones Urine Negative (Negative); Leukocyte Esterase Urine Negative (Negative); Nitrate Urine Negative (Negative); Protein Urine 2+ (Negative); Specific Gravity, Urine 1.005 (1.005-1.030); Urobilinogen Urine Norm (Negative)
[2024-01-24 01:34] LABS: Bacteria Urine TRACE /hpf; Hyaline Casts Urine 0-4 /lpf; Mucus Urine TRACE /hpf; Squamous Epithelial Cell Urine 0-4 /hpf (0-5)
[2024-01-24 01:35] LABS: Coarse Granular Casts Urine 0-4 /lpf
--- NOTE | 2024-01-24 01:42 | P.CONIM_ITS ---
Providers/Reason For Consult 2 Consulting Physician/Specialty*: Cassie Granda MD/ Hospitalist Reason for Consult*: medical comorbidity management, leukocytosis Requesting Physician: David Samano M.D Attending Physician: David Samano M.D Primary Care Provider: Patrice Huang MD History of Present Illness History of Present Illness Byron Hector is a 73 year old male with past medical history of hypertension, hyperlipidemia, who presented to the emergency room with chest and shoulder pain. Was associated with nausea and diaphoresis. He was diagnosed with a STEMI in the inferior leads with respiratory changes in the lateral leads. He was bradycardic upon admission with heart rate in the 30s with a high degree AV block. He was hypotensive from cardiogenic shock. He was taken to the Marketing Intelligence Manager emergently, had DENNY x 1 placed to the RCA. He has been brought out to the ICU postprocedure. Currently his heart rate is much improved. Sinus rhythm ranging between 58 to 60 bpm. Pressor requirement post procedure is down from Levophed at 10 mics of Levophed at 4 mics currently. He states his chest pain is resolved. Denies any complaints when seen in the ICU at this time. Patient also has a history of recent ventral hernia repair surgery on January 13, 2024, overall surgery was uneventful. Patient has not had any issues with altered bowel movements nausea vomiting or other abdominal issues since his surgery. Review of Systems 2 General: Reports: 10 or more systems reviewed and unremarkable except in HPI and below Const: Denies: fever(s), chills or body aches Eyes: Denies: change in vision, blurry vision or photophobia ENMT: Reports: hoarseness; Denies: throat pain, enlarged tonsils, odynophagia or nasal congestion Card: Reports: chest pain; Denies: palpitations, irregular heart rhythm, edema, swelling of feet/ankles, lightheadedness, pre-syncope, dyspnea on exertion or orthopnea Resp: Denies: dyspnea, productive cough, non-productive cough, wheezing, stridor, pain on inspiration, change in phlegm color, hemoptysis or chest congestion GI: Denies: abdominal pain, nausea, vomiting, hematemesis, coffee ground emesis, dysphagia, heartburn, diarrhea, constipation, GI cramping, change in stool character, hematochezia or melena : Denies: flank pain, dysuria, urinary frequency, urinary urgency, urinary hesitancy or hematuria Musc: Denies: neck pain, back pain, extremity pain, joint swelling, joint warmth or deformity Neuro: Denies: headache(s), numbness in extremities, weakness in extremities, sensory changes, difficulty walking, frequent falls, dizziness, vertigo, behavioral changes, Slurred speech present or seizure-like activity Psych: Denies: anxiety, depression, suicidal ideation or homicidal ideation Endo: Denies: polyuria, polydipsia, tired all the time, cold intolerance or hot flashes Jose/Lymph: Denies: easy bruising or easy bleeding Medications/Allergies Home Medications Medication Instructions Recorded Confirmed Last Taken Type ascorbic acid (vitamin C) 500 mg 500 mg PO DAILY 09/06/20 01/13/24 01/12/24 History capsule cholecalciferol (vitamin D3) 25 25 mcg PO DAILY 09/06/20 01/13/24 01/12/24 History mcg (1,000 unit) capsule cyanocobalamin (vitamin B-12) 1,000 mcg PO DAILY 09/06/20 01/13/24 01/12/24 History 1,000 mcg tablet,extended release krill 500 mg-omega-3 110 mg-dha 28 1 cap PO BID 09/06/20 01/13/24 01/12/24 History mg-epa 60 yh-cyemnyu-pzhns capsule multivitamin 1 tab PO DAILY 09/06/20 01/13/24 01/12/24 History omeprazole 20 mg capsule,delayed 20 mg PO DAILY 09/06/20 01/13/24 01/12/24 History release docusate sodium 100 mg capsule 100 mg PO DAILY PRN Constipation 01/05/23 01/13/24 01/12/24 History atorvastatin 20 mg tablet 20 mg PO QPM #90 tabs 04/09/23 01/13/24 01/12/24 Rx allopurinol 300 mg tablet 300 mg PO DAILY #90 tabs 07/09/23 01/13/24 01/12/24 Rx lisinopril 20 1 tab PO DAILY #90 tabs 10/09/23 01/13/24 01/12/24 Rx mg-hydrochlorothiazide 25 mg tablet hydrocodone 10 mg-acetaminophen 1 tab PO Q6H PRN pain #20 tabs 11/03/23 01/12/24 Unknown Rx 325 mg tablet amoxicillin 875 mg-potassium 1 tab PO DAILY #60 tabs 12/02/23 01/12/24 01/12/24 Rx clavulanate 125 mg tablet aspirin 81 mg tablet,delayed 81 mg PO DAILY 01/12/24 01/12/24 01/07/24 History release docusate sodium 100 mg capsule 100 mg PO BID #14 caps 01/13/24 Unknown Rx (Colace) hydrocodone 10 mg-acetaminophen 1 tab PO Q4H PRN pain #30 tabs 01/13/24 Unknown Rx 325 mg tablet tadalafil 5 mg tablet (Cialis) 5 mg PO DAILY PRN sexual activity 01/13/24 Unknown Rx #30 tabs Allergies Allergy/AdvReac Type Severity Reaction Status Date / Time vancomycin AdvReac BP DROPPED Verified 01/23/24 19:26 Current Medications Generic Name Dose Route Start Last Admin Trade Name Freq PRN Reason Stop Dose Admin norepinephrine 4 mg in 250 mls @ 0 mls/hr 01/23/24 20:00 01/24/24 00:40 Levophed IV 0 mcg/min .Q0M INDIRA 0 mls/hr Titration Protocol Per Protocol Sodium Chloride 1,000 mls @ 50 mls/hr 01/23/24 21:45 01/23/24 22:41 Sodium Chloride 0.9% IV 50 mls/hr .Q20H INDIRA Administration PFSH Acute 2 PFSH: Medical History Chronic low back pain Tobacco use disorder Amputated below knee Gout Hypertension Hyperlipidemia Surgical History History of incision and drainage History of right hip replacement History of cholecystectomy Hx of foot surgery PLATE IN RT HEEL 2003 Hx of hand surgery CARPAL TUNNEL RIGHT HAND No pertinent past surgical history Family History Mother Cancer COLON CANCER Denies family history of Anesthesia complication Bleeding disorder Social History Smoking and tobacco/nicotine status: current every day tobacco/nicotine user cigarettes Alcohol intake: current Alcohol intake frequency: holidays/special occasions only Substance/Drug Use: never Caregiver/support person: Yes Lives independently: Yes Vitals/I&O/Wt Last Vital Signs Temp 98.1 F 01/24/24 00:20 Pulse 68 01/24/24 01:30 Resp 17 01/24/24 01:30 BP 90/59 01/24/24 01:30 Pulse Ox 94 01/24/24 01:25 O2 Del Method Room Air 01/24/24 00:20 01/23/24 01/23/24 01/24/24 14:59 22:59 06:59 Intake Total 70.125 / 70.125 35 / 105.125 Balance 70.125 / 70.125 35 / 105.125 Weight last 48 hrs Weight 94.801 kg Physical Exam 2 Narrative: General: No acute distress, AO x3 HEENT: PERRLA, pupils bilaterally equal and reactive, pallors not present Chest: Normal vesicular breath sounds, no added sounds, equal good air entry bilaterally CVS: S1-S2 regular, no murmurs, no tachycardia, no gallops, no rubs Abdomen: Soft, nontender, no organomegaly, bowel sounds present Neuro: No focal deficits, no facial deformity, AO x3, power 5/5 in all limbs Extremities: No edema clubbing or cyanosis. Data 01/24/24 03:17 01/24/24 03:17 A&P Assessment and plan (1) ST elevation (STEMI) myocardial infarction: Patient presented to the emergency room with 2 hours of chest pain, found to have a STEMI for which she was taken emergently to the Marketing Intelligence Manager overnight. STEMI complicated by high degree AV block and cardiogenic shock which required initiation of Levophed upon arrival. He is now status post drug-eluting stent x 1 to the RCA overnight. He is chest pain-free postprocedure. Levophed requirement is improving from 10 mics to 4 mics. Currently on aspirin 81 mg daily and Plavix 75 mg daily Echocardiogram results pending. Qualifiers: Involved coronary artery: right coronary artery Qualified Code(s): I 21.11 - ST elevation (STEMI) myocardial infarction involving right coronary artery (2) Cardiogenic shock: Currently improving post intervention continue levophed to titrate to MAP 65 (3) Leukocytosis: Patient noted to have leukocytosis of 17.96 today. Review of prior trends shows that patient's baseline WBC count is between 11.9- 17.4. No current localizing signs of untreated infection. Patient has a history of persisting abdominal abscess over the anterior wall between December 2022 to October 2023. Eventually he underwent an ex lap in October 2023 and was found to have fat necrosis and dystrophic calcification of the omentum, likely related to past surgeries for which she underwent I&D. He started Augmentin postoperatively and remained on a prolonged course which was finally able to clear his abdominal wall infection. His abdominal wall healed completely by December 02, 2023. He was able to undergo an elective ventral hernia repair surgery with mesh placement on January 13, 2024. Port sites from this most recent surgery appear to be healing. There remains a negative pressure surgical dressing in place just above the umbilicus, surgical dressing is planned to be opened on follow-up with general surgery on Friday January 26, 2024. There has been no drainage at this site. Patient continues to be on oral Augmentin until follow-up on Friday. Antibiotics planned to be discontinued after this follow-up if wounds show satisfactory healing. Will trend leukocytosis with a.m. labs. Low suspicion for any other untreated infections, would hold off on broadening coverage at this time. Leukocytosis may additionally be related to acute stress reaction. Qualifiers: Leukocytosis type: unspecified Qualified Code(s): D72.829 - Elevated white blood cell count, unspecified Consult Attestations 2 Medical Necessity Statement: per admitting Critical Care Time: The high probability of a clinically significant, sudden or life threatening deterioration of the patient's [circulatory,ID,heme] system(s) required my full and direct attention, intervention and personal management. The critical care time is as shown. This time is in addition to time spent performing any reported procedures but includes the following: [x] Data and vital sign review and interpretation [x] Patient assessment, examination and intervention [x] Documentation [x] Medication orders and management Coding Level of Care Code Critical Care >/= 30 minutes Critical care time (in minutes): 35 The high probability of a clinically significant, sudden or life threatening deterioration, as referenced in this documentation, required my full and direct attention, intervention and personal management. The critical care time shown is in addition to time spent performing any reported separately billable procedures and includes the following: [x] Data and vital sign review and interpretation [x ] Patient assessment, examination and intervention [x] Medication orders and management [x] Patient/Family updates as able [x] Care Coordination and Documentation. Diagnoses ST elevation (STEMI) myocardial infarction I21.11 Involved coronary artery: right coronary artery Cardiogenic shock R57.0 Leukocytosis, unspecified type D72.829 Leukocytosis type: unspecified
[2024-01-24 02:15] LABS: Troponin 5 6HR 3101 ng/L (0-15); Troponin 5 6HR Delta 3027 ng/L (0-12)
--- NOTE | 2024-01-24 02:45 | ECG_ITS ---
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 Measurements Intervals [place] Rate: 59 P: 86 TX: 199 QRS: -84 QRSD: 157 T: 78 QT: 439 QTc: 438 Interpretive Statements SINUS BRADYCARDIA WITH OCCASIONAL VENTRICULAR PREMATURE COMPLEXES RIGHT BUNDLE BRANCH BLOCK [120+ ms QRS DURATION, UPRIGHT V1, 40+ ms S IN I/aVL/V4/V5/V6] INFERIOR MYOCARDIAL INFARCTION , POSSIBLY ACUTE [40+ ms Q WAVE AND/OR ST/T ABNORMALITY IN II/aVF] ACUTE MO Compared to ECG 01/23/2024 21:52:02 Ventricular premature complex(es) now present Sinus rhythm no longer present Sinus arrhythmia no longer present First degree AV block no longer present Right-axis deviation no longer present Myocardial infarct finding still present Electronically Signed On 01-24-2024 15:34:18 FUEL ASSEMBLER by Hyun Packer M.D. [id number]
[2024-01-24 04:28] LABS: Basophils # 0.1 10^3/uL (0.0-0.1); Basophils % 0.4 %; Eosinophils # 0.1 10^3/uL (0.0-0.8); Eosinophils % 0.5 %; Hematocrit 41.3 % (37-53); Lymphocytes # 1.6 10^3/uL (0.8-4.8); Lymphocytes % 14.5 %; Mean Corpuscular HGB Conc 33.9 g/dL (30-55); Mean Corpuscular Hemoglobin 30.4 pg (27-33); Mean Corpuscular Volume 89.8 fl (82-101); Mean Platelet Volume 8.8 fL (7.4-10.4); Monocytes # 0.7 10^3/uL (0.2-0.9); Monocytes % 6.3 %; Neutrophils # 8.78 10^3/uL (1.8-7.7); Neutrophils % 77.9 %; Nucleated Red Blood Cells % 0 %; Platelet Count 296 10^3/cmm (157-399); Red Cell Distribution Width 13.9 % (12.1-15.1); White Blood Count 11.29 10^3/uL (3.29-11.43)
[2024-01-24 04:54] LABS: Anion Gap 17.2 (5-19); Blood Urea Nitrogen 28 mg/dL (8-23); Calcium 9.4 mg/dL (8.5-10.5); Carbon Dioxide 24 mmol/L (22-29); Chloride 100 mmol/L (98-107); Creatinine Clr Calc Pharmacy 44.0649; Glucose 95 mg/dL (65-115); Osmolality Calculated 289 mOsm/kg (285-295); Potassium 4.2 mmol/L (3.5-5.1); Sodium 137 mmol/L (136-145)
--- NOTE | 2024-01-24 06:00 | USCV_ITS ---
Byron Hector Age: 73 Gender: M : 1950 Exam Date: 01/24/2024 10:03 Ordering Phys: Davdi Samano M.D ([email or web address]) Technologist: Ricardo Whitman [place] [facility] [place]: stemi BP: 106 / 61 HR: Rhythm: Sinus Technical Quality: Adequate MEASUREMENTS (Male / Female) Normal Values 2D ECHO LVOT Diameter 2.2 cm LV Ejection Fraction MOD 2C 64.8 % LV Ejection Fraction 2C AL 0.0 % LA Diameter 4.0 cm Aorta at Sinotubular Diameter 4.3 cm IVC Diameter 2.0 cm M-MODE LA Ao Ratio MM 1.1 AV Cusp Separation MM 1.9 cm DOPPLER AV Peak Velocity 150.0 cm/s LVOT Peak Velocity 82.0 cm/s AV Area Cont Eq vti 2.7 cm squared AV Area Cont Eq pk 2.1 cm squared MV Peak Velocity 160.0 cm/s MV Area PHT 4.6 cm squared Mitral E to A Ratio 1.3 TV Peak Velocity 228.3 cm/s TR Peak Velocity 274.0 cm/s TR Peak Gradient 30.0 mmHg TR Mean Velocity 186.0 cm/s TR Mean Gradient 16.0 mmHg TR Velocity Time Integral 78.2 cm PV Peak Velocity 104.8 cm/s RV Ejection Time 0.3 s FINDINGS Left Ventricle Left ventricle is normal in size. LV systolic function is normal with EF 55-60%. Mild hypokinesis of inferior wall is seen. Right Ventricle Normal in size and function Right Atrium Normal in size Left Atrium Normal in size Mitral Valve Structurally normal mitral valve. Mild mitral regurgitation Aortic Valve Aortic valve is thickened. No significant stenosis or regurgitation. Tricuspid Valve Mild tricuspid regurgitation. 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 Above mentioned regional wall motion abnormalities Mild mitral regurgitation Mild tricuspid regurgitation IVC appears dilated Compared to prior echocardiogram from 2021, regional wall motion abnormalities are new David Samano MD (Electronically Signed) Final Date: 24 January 2024 11:11 S
[2024-01-24] MEDS: clopidogrel 75 mg Tablet PO (08:55)
[2024-01-24] MEDS: amoxicillin-clav 875-125 mg Tablet 1 TAB PO ×2 (08:55→17:46)
[2024-01-24] MEDS: aspirin 81 mg EC Tablet PO (08:55)
--- NOTE | 2024-01-24 09:16 | PM.PN ---
Subjective Subjective: Patient is doing well. No chest pain. Last night had PCI of mid to distal RCA with 1 stent. Had some reperfusion arrhythmias overnight. Vitals/I&O/Wt Last Vital Signs Temp 98.5 F 01/24/24 07:30 Pulse 59 L 01/24/24 07:30 Resp 14 01/24/24 07:30 BP 96/45 01/24/24 07:30 Pulse Ox 94 01/24/24 07:30 O2 Del Method Room Air 01/24/24 07:30 01/23/24 01/24/24 01/24/24 22:59 06:59 14:59 Intake Total 70.125 / 70.125 1523.334 / 1593.459 Output Total 450 / 450 Balance 70.125 / 70.125 1073.334 / 1143.459 Weight last 48 hrs Weight 209 lb Weight 209 lb Physical Exam Narrative: GENERAL: Patient is alert, awake and oriented x3. [] NECK: No jugular vein distension. [] HEENT: No cyanosis. No icterus. No pallor. [] HEART: Regular S1 and S2. No murmur LUNGS: Clear to auscultate bilaterally. [] CENTRAL NERVOUS SYSTEM: Grossly nonfocal. [] EXTREMITIES: Lower extremities with 1+ edema bilaterally. Data 01/24/24 03:17 01/24/24 03:17 A&P Assessment and plan (1) ST elevation (STEMI) myocardial infarction: Qualifiers: Involved coronary artery: right coronary artery Qualified Code(s): I21.11 - ST elevation (STEMI) myocardial infarction involving right coronary artery (2) Cardiogenic shock: (3) Hyperlipidemia: (4) Hypertension: Plan Patient had total thrombotic occlusion of mid to distal RCA with 1 stent last night. Cardiogenic shock resolved. High degree AV block resolved. He is off of pressors Continue aspirin and plavix for atleast 1 year High intensity statin therapy Starting low dose beta blockers today Medicine team on board for medical management. He had recent ventral hernia repair. Appears stable. Antibiotic therapy per medicine team ECHO pending Attestations Medical Necessity Statement*: Care expected to cross 2 midnights. Patient came with acute inferior wall STEMI last night and had PCI of RCA. Cardiogenic shock has resolved. Coding Level of Care Code Acute Code for [facility] Diagnoses ST elevation (STEMI) myocardial infarction I21.11 Involved coronary artery: right coronary artery Cardiogenic shock R57.0 Hyperlipidemia E78.5 Hypertension I10
[2024-01-24] MEDS: metoprolol tartrate 25 mg Tablet 12.5 MG PO ×2 (10:42→21:07)
[2024-01-24] MEDS: magnesium sulfate premix 1 GM/100 ML PIGGYBACK IV (10:44)
[2024-01-24] MEDS: acetaminophen 325 mg Tablet 650 MG PO (11:17)
--- NOTE | 2024-01-24 18:09 | PC.NURSE ---
Shift summary: Pt has rested in bed throughout the shift. He has complained of headache this am and evening. He declined acetaminophen for now this evening but did take some this am and it helped. He is a coffee drinker and a smoker, lack of these may be contributing. No complaints of CP, dizziness or palpitations. Sinus rhythm with ST elevation noted on monitor, no ectopy this shift. Pt started beta linette, no issues noted. He remains on room air , O2 sats greater than 90%. He has ate majority of his meals. He has urinated twice, total of 450ml of dark yellow urine.
[2024-01-24] MEDS: sodium chloride 0.9% 1,000 ML 50 ML IV (19:40)
[2024-01-24] MEDS: atorvastatin 40 mg Tablet PO (21:07)
--- NOTE | 2024-01-24 23:20 | PC.NURSE ---
Patient has become more coherent during first half of shift. Able to communicate well with 90% of words recognizable. Alert to person and year. Requesting food and tolerating tube feeds well. Had two incontinent urines but was able to use the urinal the third time. Still confused intermittently.
[2024-01-25] VITALS (16 sets, daily range): BP systolic 106–199; BP diastolic 58–109; PULSE 53–70; RESP 7–25; TEMP 36.7–36.9; O2SAT 88–97
[2024-01-25] MEDS: acetaminophen 325 mg Tablet 650 MG PO (00:20)
--- NOTE | 2024-01-25 03:11 | PC.NURSE ---
Patient rested well overnight. No cardiac events noted. Able to ambulate to restroom for bowel movement. Headache treated with tylenol, no other pain reported. Beta Jeffery tolerated well overnight.
[2024-01-25 05:15] LABS: Basophils # 0.1 10^3/uL (0.0-0.1); Basophils % 0.5 %; Eosinophils # 0.3 10^3/uL (0.0-0.8); Eosinophils % 2.5 %; Hematocrit 38.4 % (37-53); Lymphocytes # 2.2 10^3/uL (0.8-4.8); Mean Corpuscular HGB Conc 34.9 g/dL (30-55); Mean Corpuscular Hemoglobin 30.5 pg (27-33); Mean Corpuscular Volume 87.5 fl (82-101); Mean Platelet Volume 8.8 fL (7.4-10.4); Monocytes # 0.8 10^3/uL (0.2-0.9); Monocytes % 6.9 %; Neutrophils # 8.16 10^3/uL (1.8-7.7); Neutrophils % 70.8 %; Nucleated Red Blood Cells % 0 %; Platelet Count 264 10^3/cmm (157-399); Red Blood Count 4.39 10^6/uL (3.85-5.65); Red Cell Distribution Width 13.9 % (12.1-15.1); White Blood Count 11.54 10^3/uL (3.29-11.43)
[2024-01-25 05:34] LABS: Anion Gap 12.7 (5-19); Blood Urea Nitrogen 31 mg/dL (8-23); Calcium 9.3 mg/dL (8.5-10.5); Carbon Dioxide 22 mmol/L (22-29); Chloride 100 mmol/L (98-107); Creatinine Clr Calc Pharmacy 57.6234; Glucose 104 mg/dL (65-115); Osmolality Calculated 279 mOsm/kg (285-295); Potassium 3.7 mmol/L (3.5-5.1); Sodium 131 mmol/L (136-145)
[2024-01-25] MEDS: aspirin 81 mg EC Tablet PO (08:34)
[2024-01-25] MEDS: clopidogrel 75 mg Tablet PO (08:34)
[2024-01-25] MEDS: metoprolol tartrate 25 mg Tablet 12.5 MG PO (08:34)
[2024-01-25] MEDS: amoxicillin-clav 875-125 mg Tablet 1 TAB PO (08:34)
--- NOTE | 2024-01-25 08:36 | P.DS_ITS ---
Discharge Providers Date of Admission: 01/23/24 21:39 Date of Discharge: January 25, 2024 Attending Provider at Admission: David Samano M.D Attending Provider at Discharge: David Samano M.D Primary Care Provider: Patrice Huang MD Diagnoses at Discharge Discharge Diagnosis (1) ST elevation (STEMI) myocardial infarction: Status: Acute Qualifiers: Involved coronary artery: right coronary artery Qualified Code(s): I21.11 - ST elevation (STEMI) myocardial infarction involving right coronary artery (2) Cardiogenic shock: Status: Acute (3) Hyperlipidemia: Status: Acute (4) Hypertension: Status: Acute Reason for Visit Reason for Visit: Left shoulder blade pain Brief History: 73 year old male with past medical histo ry of hypertension, hyperlipidemia, 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 It is associated with the nausea and diaphoresis. EKG is showing ST elevation SD in inferior leads with reciprocal changes in lateral leads. He is bradycardic with high degree AV block. He is also hypotensive. [employer] activated emergently. Patient had ventral hernia repair about 10 days ago. 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 Post angiogram high degree AV block resolved when he went into sinus rhythm. Also cardiogenic shock resolved and Levophed was stopped. Medicine team was consulted as patient had recent ventral hernia repair for assessing need for antibiotic therapy. Augmentin was continued. He states chest pain-free. Did have CHRISSIE on CKD that improved and creatinine was at baseline on day of discharge. Patient discharged home on dual antiplatelet therapy. Physical Exam Narrative: GENERAL: Patient is alert, awake and oriented x3. [] NECK: No jugular vein distension. [] HEENT: No cyanosis. No icterus. No pallor. [] HEART: Regular S1 and S2. No murmur LUNGS: Clear to auscultate bilaterally. [] CENTRAL NERVOUS SYSTEM: Grossly nonfocal. [] EXTREMITIES: Lower extremities with no edema. Has BKA of left lower extremity Discharge Data Studies Completed and Pending Completed Studies During Hospitalization Category Date Time Status XR chest 1V portable [id number] Stat Exams 01/23/24 19:34 Completed CV. echo complete* [id number] Routine Ultrasound 01/24/24 06:00 Completed Pending at discharge Category Date Time Status TEST ENGINEERING INTERN request for service Stat Exams 01/23/24 20:08 Taken Basic Metabolic Panel AM LABS Lab 01/26/24 04:00 Ordered Complete Blood Count w/Auto AM LABS Lab 01/26/24 04:00 Ordered Radiology Impressions Chest X-Ray 01/23/24 19:34 IMPRESSION: No acute cardiopulmonary process. Laboratory Results WBC 11.54 10^3/uL (3.29-11.43) H 01/25/24 04:39 RBC 4.39 10^6/uL (3.85-5.65) 01/25/24 04:39 Hgb 13.40 g/dL (11.27-16.99) 01/25/24 04:39 Hct 38.4 % (37-53) 01/25/24 04:39 MCV 87.5 fl (82-101) 01/25/24 04:39 MCH 30.5 pg (27-33) 01/25/24 04:39 MCHC 34.9 g/dL (30-55) 01/25/24 04:39 RDW 13.9 % (12.1-15.1) 01/25/24 04:39 Plt Count 264 10^3/cmm (157-399) 01/25/24 04:39 MPV 8.8 fL (7.4-10.4) 01/25/24 04:39 Neut % (Auto) 70.8 % 01/25/24 04:39 Lymph % (Auto) 19.0 % 01/25/24 04:39 [place] % (Auto) 6.9 % 01/25/24 04:39 Eos % (Auto) 2.5 % 01/25/24 04:39 Baso % (Auto) 0.5 % 01/25/24 04:39 Neut # (Auto) 8.16 10^3/uL (1.8-7.7) H 01/25/24 04:39 Lymph # (Auto) 2.2 10^3/uL (0.8-4.8) 01/25/24 04:39 Moody # (Auto) 0.8 10^3/uL (0.2-0.9) 01/25/24 04:39 Eos # (Auto) 0.3 10^3/uL (0.0-0.8) 01/25/24 04:39 Baso # (Auto) 0.1 10^3/uL (0.0-0.1) 01/25/24 04:39 Nucleated RBC % (auto) 0 % 01/25/24 04:39 Nucleated RBCs # 0.0 /100WBC 01/25/24 04:39 PT 13.80 SECONDS (12.1-14.9) 01/23/24 07:33 INR 1.03 (0.8-1.2) 01/23/24 07:33 APTT 37.1 SECONDS (23.9-36.7) H 01/23/24 07:33 Sodium 131 mmol/L (136-145) L 01/25/24 04:39 Potassium 3.7 mmol/L (3.5-5.1) 01/25/24 04:39 Chloride 100 mmol/L (98-107) 01/25/24 04:39 Carbon Dioxide 22 mmol/L (22-29) 01/25/24 04:39 Anion Gap 12.7 (5-19) 01/25/24 04:39 BUN 31 mg/dL (8-23) H 01/25/24 04:39 Creatinine 1.3 mg/dL (0.7-1.2) H 01/25/24 04:39 GFR Calculation Not Reportable 01/25/24 04:39 Glucose 104 mg/dL (65-115) 01/25/24 04:39 POC Glucose 175 mg/dL (70-110) H 01/23/24 21:50 Calculated Osmolality 279 mOsm/kg (285-295) L 01/25/24 04:39 Calcium 9.3 mg/dL (8.5-10.5) 01/25/24 04:39 Magnesium 1.5 mg/dL (1.7-2.3) L 01/23/24 17:03 Total Bilirubin 0.6 mg/dL (0.15-1.2) 01/23/24 07:33 AST 13 U/L (0-40) 01/23/24 07:33 ALT 13 U/L (0-41) 01/23/24 07:33 Alkaline Phosphatase 104 U/L (40-130) 01/23/24 07:33 Troponin T Baseline 74 ng/L (0-15) H 01/23/24 07:33 Troponin T 120 Minute 738.1 ng/L (0-15) H 01/23/24 22:20 Delta Troponin T 664.1 ABS# (0-10) H* 01/23/24 22:20 Troponin T Hi Sens 6Hr 3101 ng/L (0-15) H 01/24/24 01:30 Troponin T Hi Sens 6Hr Delta 3027 ng/L (0-12) H* 01/24/24 01:30 NT-Pro-B Natriuret Pep 249 pg/mL (0-125) H 01/23/24 07:33 Total Protein 7.8 g/dL (6.6-8.7) 01/23/24 07:33 Albumin 4.4 g/dL (3.5-5.2) 01/23/24 07:33 Globulin 3.4 g/dL (1.3-4.6) 01/23/24 07:33 Urine Color Yellow (Yellow) 01/24/24 01:05 Urine Appearance Hazy (CLEAR) A 01/24/24 01:05 Urine pH 6.5 (5-7) 01/24/24 01:05 Ur Specific [place] 1.005 (1.005-1.030) 01/24/24 01:05 Urine Protein 2+ (Negative) H 01/24/24 01:05 Urine Glucose (UA) 1+ (Normal) H 01/24/24 01:05 Urine Ketones Negative (Negative) 01/24/24 01:05 Urine Blood 2+ (Negative) H 01/24/24 01:05 Urine Nitrate Negative (Negative) 01/24/24 01:05 Urine Bilirubin Neg (Negative) 01/24/24 01:05 Urine Urobilinogen Norm mg/dL (Negative) 01/24/24 01:05 Ur Leukocyte Esterase Negative (Negative) 01/24/24 01:05 Urine RBC 5-10 /hpf (0-2) H 01/24/24 01:05 Urine WBC 5-10 /hpf (0-5) H 01/24/24 01:05 Ur Squamous Epith Cells 0-4 /hpf (0-5) H 01/24/24 01:05 Amorphous Sediment Not Reportable 01/24/24 01:05 Urine Bacteria Trace /hpf (NONE) 01/24/24 01:05 Hyaline Casts 0-4 /lpf H 01/24/24 01:05 Coarse Granular Casts 0-4 /lpf H 01/24/24 01:05 Urine Mucus Trace /hpf 01/24/24 01:05 Vitals Last Vital Signs Temp 98.5 F 01/25/24 08:00 Pulse 62 01/25/24 08:00 Resp 19 H 01/25/24 08:00 BP 139/79 01/25/24 08:00 Pulse Ox 95 01/25/24 08:00 O2 Del Method Room Air 01/25/24 08:00 Discharge Plan Discharge Patient Disposition: Home Condition: Stable Prescriptions: New clopidogrel 75 mg Tablet 75 mg PO DAILY Qty: 90 3RF pantoprazole 20 mg tablet,delayed release (DR/EC) 20 mg PO DAILY Qty: 60 0RF metoprolol tartrate 25 mg Tablet 12.5 mg PO BID@0900,2100 Qty: 120 3RF Continued cyanocobalamin (vitamin B-12) 1,000 mcg tablet extended release 1,000 mcg PO DAILY [id number] mg capsule 1 cap PO BID cholecalciferol (vitamin D3) 25 mcg (1,000 unit) capsule 25 mcg PO DAILY multivitamin Tablet 1 tab PO DAILY ascorbic acid (vitamin C) 500 mg capsule 500 mg PO DAILY allopurinol 300 mg tablet 300 mg PO DAILY Qty: 90 11RF lisinopril-hydrochlorothiazide 20-25 mg tablet 1 tab PO DAILY Qty: 90 3RF Hold Instructions: Resume on 01/21/23. tadalafil [Cialis] 5 mg tablet 5 mg PO DAILY PRN (Reason: sexual activity) Qty: 30 11RF docusate sodium 100 mg Capsule 100 mg PO DAILY PRN (Reason: Constipation) aspirin 81 mg Tablet,Delayed Release (Dr/Ec) 81 mg PO DAILY Changed atorvastatin 20 mg tablet 40 mg PO QPM Qty: 90 3RF Discontinued omeprazole 20 mg capsule,delayed release(DR/EC) 20 mg PO DAILY Discharge Orders: Discharge Order (Routine); Ordered 01/25/24 Ordered By: David Samano Referrals: Sarah Greene FNP [Nurse Practitioner] - 7-10 days Patrice Huang MD [Primary Care Provider] - Discharge Diet: Cardiac Discharge Activity: Increase activity as tolerated Patient Instructions: Metoprolol (By mouth), Clopidogrel (By mouth), Pantoprazole (By mouth), Coronary Angioplasty (DC), Leukocytosis (DC), Opioid Sa fety Discharge Attestations Time Spent in Discharge Care*: greater than 30 min Quality Metrics Clinical Quality Measures [ Acute Myocardial Infaction { Clinical Trial Participant: No; Contraindication to aspirin: None; Aspirin prescribed; Contraindication to statin: None; Statin prescribed; Contraindication to PCI: None; PCI performed;}] Coding Level of Care Code Acute Code for [facility] Fwd Diagnoses ST elevation (STEMI) myocardial infarction I21.11 Involved coronary artery: right coronary artery Cardiogenic shock R57.0 Hyperlipidemia E78.5 Hypertension I10
[2024-01-25] MEDS: lisinopril 20 mg Tablet PO (09:15)
[2024-01-25] MEDS: hydroCHLOROthiazide 25 mg Tablet PO (09:15)
--- NOTE | 2024-01-25 10:10 | PC.NURSE ---
Discharge instructions provided and discussed. Stent care provided and discussed. Pt instructed to make follow up appts, Friday. Pt verbalized understanding. Pt to front entrance to POV. All belongings gathered by patient. All belongings with pt at discharge.
== END 2024-01-25 10:10 | disposition home or self-care (01) | DRG 321 ==
LOC: ER 19:57 → CCL 19:58 → ICU 21:40
PROVIDERS: Admitting Provider Internal Medicine; Emergency Provider Internal Medicine; PCP Family Medicine; Visit Provider Internal Medicine
PROC: 027034Z Dilation of Coronary Artery, One Artery with Drug-eluting Intraluminal Device, Percutaneous Approach (ICD-10-PCS; principal; 2024-01-23 19:30)
PROC: 027034Z Dilation of Coronary Artery, One Artery with Drug-eluting Intraluminal Device, Percutaneous Approach (ICD-10-PCS; 2024-01-23 19:30)
DX: I21.11 ST elevation (STEMI) myocardial infarction involving right coronary artery (principal); R57.0 Cardiogenic shock; I10 Essential (primary) hypertension; E78.5 Hyperlipidemia, unspecified; I44.39 Other atrioventricular block; I95.9 Hypotension, unspecified; G89.29 Other chronic pain; M54.50 Low back pain, unspecified; M10.9 Gout, unspecified; F17.210 Nicotine dependence, cigarettes, uncomplicated; I25.10 Atherosclerotic heart disease of native coronary artery without angina pectoris; Z79.82 Long term (current) use of aspirin; Z98.890 Other specified postprocedural states; Z89.512 Acquired absence of left leg below knee
CPT/HCPCS: 36415; 36416; 71045; 80048; 80053; 81001; 82962; 83735; 83880; 84484; 85025; 85347; 85610; 85730; 93005; 93306; 93458; 96365; 96375; 96376; 99152; 99153; 99285; C1725; C1769; C1874; C1887; C1894; C9600; J1644; J2250; J3010; J3475; J3490; J7030; Q9967

== ENCOUNTER → 2024-01-26 10:31 | Outpatient (BNVA) | payer MEDICARE, SELFPAY | PROVIDERS: PCP Family Medicine; Visit Provider Surgery | DX: Z98.890 Other specified postprocedural states (principal); Z87.19 Personal history of other diseases of the digestive system; I21.11 ST elevation (STEMI) myocardial infarction involving right coronary artery; Z79.899 Other long term (current) drug therapy | CPT/HCPCS: 99024 ==

== ENCOUNTER → 2024-01-28 08:55 | Outpatient (BNVA) | payer MEDICARE, SELFPAY | PROVIDERS: PCP Family Medicine; Visit Provider Family Medicine | DX: I10 Essential (primary) hypertension (principal); I21.11 ST elevation (STEMI) myocardial infarction involving right coronary artery; E87.1 Hypo-osmolality and hyponatremia; N17.9 Acute kidney failure, unspecified | CPT/HCPCS: 80053; 85025 ==

== ENCOUNTER → 2024-02-12 13:50 | Outpatient (BNVA) | payer MEDICARE, SELFPAY | PROVIDERS: PCP Family Medicine; Visit Provider Nurse Practitioner Family | DX: I25.2 Old myocardial infarction (principal); I10 Essential (primary) hypertension; F17.210 Nicotine dependence, cigarettes, uncomplicated | CPT/HCPCS: 99214 ==

== ENCOUNTER → 2024-04-27 12:35 | Outpatient (BNVA) | payer MEDICARE, SELFPAY | PROVIDERS: PCP Family Medicine; Visit Provider Internal Medicine | DX: I25.10 Atherosclerotic heart disease of native coronary artery without angina pectoris (principal); E78.5 Hyperlipidemia, unspecified; I10 Essential (primary) hypertension; F17.200 Nicotine dependence, unspecified, uncomplicated | CPT/HCPCS: 99214 ==

== ENCOUNTER → 2024-05-06 10:36 | Outpatient (BNVA) | payer MEDICARE, SELFPAY | PROVIDERS: PCP Family Medicine; Visit Provider Family Medicine | DX: I10 Essential (primary) hypertension (principal); I25.10 Atherosclerotic heart disease of native coronary artery without angina pectoris | CPT/HCPCS: 80053; 85025 ==

== ENCOUNTER → 2024-10-26 15:09 | Outpatient (BNVA) | payer MEDICARE, SELFPAY | PROVIDERS: PCP Family Medicine; Visit Provider Internal Medicine | DX: I25.10 Atherosclerotic heart disease of native coronary artery without angina pectoris (principal); E78.5 Hyperlipidemia, unspecified; I10 Essential (primary) hypertension | CPT/HCPCS: 99214 ==

== ENCOUNTER → 2025-04-27 12:26 | Outpatient (BNVA) | payer MEDICARE, SELFPAY | PROVIDERS: PCP Family Medicine; Visit Provider Internal Medicine | DX: R29.810 Facial weakness (principal); I25.10 Atherosclerotic heart disease of native coronary artery without angina pectoris; E78.5 Hyperlipidemia, unspecified; I10 Essential (primary) hypertension; Z79.02 Long term (current) use of antithrombotics/antiplatelets; Z79.82 Long term (current) use of aspirin; F17.210 Nicotine dependence, cigarettes, uncomplicated; I25.2 Old myocardial infarction | CPT/HCPCS: 99214 ==

== ENCOUNTER → 2025-05-05 12:04 | Outpatient (BNVA) | payer MEDICARE, SELFPAY | PROVIDERS: PCP Family Medicine; Visit Provider Family Medicine | DX: I10 Essential (primary) hypertension (principal); I25.10 Atherosclerotic heart disease of native coronary artery without angina pectoris; E78.5 Hyperlipidemia, unspecified; G51.0 Bell's palsy; I21.11 ST elevation (STEMI) myocardial infarction involving right coronary artery; R73.9 Hyperglycemia, unspecified | CPT/HCPCS: 80053; 80061; 83036; 84550; 85025 ==